=== PATIENT | female | born 1970 | race Caucasian/White ===

== ENCOUNTER 2018-09-29 05:08 | Inpatient (IN) ==
[2018-09-29] MEDS ORDERED: IOPAMIDOL 100 ML BOTTLE IV ONE (05:09)
[2018-09-29] MEDS ORDERED: 0.9 % SODIUM CHLORIDE 2,000 ML IV ONE (05:51)
[2018-09-29] MEDS ORDERED: ONDANSETRON 4 MG/2 ML VIAL IV ONE (05:51)
[2018-09-29] MEDS ORDERED: KETOROLAC 30 MG/ML VIAL IV ONE (05:51)
[2018-09-29] MEDS: HYDROmorphone 2 MG/ML VIAL IV PRN ×3 (06:14→09:05)
[2018-09-29 06:36] LABS: Basophils # (Auto) 0 K/mcL (0.0-0.3); Basophils % (Auto) 0.4 % (0.0-2.0); Eosinophils # (Auto) 0.1 K/mcL (0.0-0.7); Eosinophils % (Auto) 0.8 % (0.0-7.0); Lymphocytes # (Auto) 1.4 K/mcL (1.5-4.8); Lymphocytes % (Auto) 16.2 % (15.5-49.0); Mean Cell Volume 94.1 fL (80.0-100.0); Mean Corpuscular HGB Conc 32.7 g/dL (31.0-36.0); Mean Corpuscular Hemoglobin 30.7 pg (26.0-34.0); Monocytes # (Auto) 0.6 K/mcL (0.1-0.9); Monocytes % (Auto) 6.6 % (1.0-12.0); Platelet Count 451 K/mcL (140-440); RBC 5.14 M/mcL (4.00-5.20); Red Cell Distribution Width 12.9 % (11.5-14.5)
[2018-09-29 06:56] LABS: ALT/SGPT 16 U/l (0-40); Albumin 4.5 gm/dL (3.2-5.2); Alkaline Phosphatase 88 U/L (39-117); Blood Urea Nitrogen 17 mg/dl (6-20); Lipase 16 U/L (7-60)
--- NOTE | 2018-09-29 07:11 | Emergency Department Note ---
General Adult HPI - General Chief complaint: Extremity Injury, Lower Stated complaint: right hip pain, abdominal pain Time Seen by Provider: 09/29/18 05:30 Source: patient Mode of arrival: wheelchair Limitations: no limitations - History of Present Illness HPI Narrative: 48-year-old female with a several month history of right hip right knee pain that hurts to walk on. She states that they sometimes give out on her and is not clear whether this from her back or from the hip or knee joint. Additionally she is having belly pain which she thinks is diverticulitis as it is across her lower belly and she has had diverticulitis before. She denies any fever. Abdominal pain is worst on the left side. Denies vomiting but she is having some nausea. She is taking ibuprofen only for pain I reviewed her note from last month with Dr. Manning up where he did x-rays on the right side-these were normal - Related Data Home Medications Medication Instructions Recorded Confirmed Citalopram [Celexa] 10 mg PO DAILY 01/14/16 08/29/18 clonazepam 1 mg tablet 1 mg PO TID tab 01/16/16 08/29/18 trazodone 50 mg tablet 75 mg PO QHS PRN tab 01/20/16 06/29/18 Dicyclomine 20 mg PO DAILY 06/29/18 06/29/18 Omeprazole [Prilosec] 40 mg PO ACB 06/29/18 08/29/18 carBAMazepine [Tegretol Xr] 200 mg PO BID 06/29/18 08/29/18 Previous Rx's Medication Instructions Recorded tramadol 50 mg tablet 50 mg PO Q6H PRN #20 tab 05/25/18 HYDROcodone/APAP 10/325MG [Fithian 1 tab PO TID #9 tab 06/26/18 10-325Mg] Sulfamethoxazole/Trimethoprim 1 each PO Q12H #20 tab 06/26/18 [Bactrim Ds Tablet] Sulfamethoxazole/Trimethoprim 1 tab PO BID #14 tab 08/01/18 [Bactrim Ds] Allergies Allergy/AdvReac Type Severity Reaction Status Date / Time Penicillins Allergy Unknown Unknown Verified 09/29/18 05:11 diphenhydramine AdvReac Mild Anxiety Verified 09/29/18 05:11 [From Benadryl] ketorolac AdvReac Mild Vomiting Verified 09/29/18 05:11 metoclopramide [From Reglan] AdvReac Mild Numbness Verified 09/29/18 05:11 NSAIDS (Non-Steroidal AdvReac Mild N/V Verified 09/29/18 05:11 Anti-Inflamma [NSAIDS] prochlorperazine AdvReac Mild Hallucinati Verified 09/29/18 05:11 ons promethazine [PROMETHAZINE] AdvReac Mild Anxiety Verified 09/29/18 05:11 Review of Systems All systems ED: reviewed and negative except as stated. Past Medical History - Past Medical History Attestation: Yes: The following information was validated with the patient. Medical history: Reports: cancer (breast), seizures, other (Kidney stones, chronic abdominal pain. Diverticulitis). Denies: DM, hyperlipidemia, hypertension, thyroid disease Psychiatric history: Reports: anxiety, bipolar, depression, PTSD Surgical history ED: Reports: hysterectomy (with single oophorectomy.), tonsillectomy - Social History smoking status: Current every day smoker Alcohol use: Reports: None Drug use: Reports: methamphetamine (A few days ago (recorded 08-29-18)). Denies : marijuana Physical Exam Thin even cachectic female some distress secondary to pain. Lying on her left side. Normocephalic atraumatic. Conjunctive are clear sclerae nonicteric. No nasal discharge or congestion. She covers her face most the time when talking. However conjunctive are clear sclerae white and anicteric. No nasal discharge or congestion. Oropharynx pink and moist. Nose is without discharge or congestion. Heart is regular rhythm but slightly tachycardic. Lungs are basically clear to auscultation bilaterally without wheezes rales rhonchi or respiratory distress. Abdomen is somewhat firm but not rigid tender throughout but especially lower quadrants. She also has some tenderness over the right buttock area, but I do not see deformity. I tried to examine her back as well straight leg raise was negative. Movement of the right knee or hip elicits tenderness and she does not want to move it at all. However I do not see or feel any swelling or heat. No pedal edema. +2 radial pulse. she is alert and able to answer questions appropriately Limitations: no limitations Course Vital Signs Temperature 97.5 F 09/29/18 05:09 Pulse Rate 102 H 09/29/18 05:09 Respiratory Rate 18 11/22/18 05:09 Blood Pressure 148/107 09/29/18 05:09 Pulse Oximetry (%) 100 09/29/18 05:09 Temperature 97.5 F 09/29/18 05:09 Pulse Rate 83 09/29/18 08:13 Respiratory Rate 18 09/29/18 05:09 Blood Pressure 116/81 09/29/18 08:01 Pulse Oximetry (%) 99 09/29/18 08:13 Medical Decision Making - Lab Data Lab results reviewed: Yes I reviewed the patient's lab results. Result diagrams: 09/29/18 06:08 09/29/18 06:08 Lab Results 09/29/18 09/29/18 09/29/18 Range/Units 06:08 06:08 06:08 WBC 8.8 (4.5-11.0) K/mcL RBC 5.14 (4.00-5.20) M/mcL Hgb 15.8 H (12.0-15.0) g/dL Hct 48.4 H (36.0-48.0) % MCV 94.1 (80.0-100.0) fL MCH 30.7 (26.0-34.0) pg MCHC 32.7 (31.0-36.0) g/dL RDW 12.9 (11.5-14.5) % Plt Count 451 H (140-440) K/mcL MPV 7.5 (7.4-10.4) fL Gran % 76.0 (38.0-78.0) % Lymph % (Auto) 16.2 (15.5-49.0) % Woodruff % (Auto) 6.6 (1.0-12.0) % Eos % (Auto) 0.8 (0.0-7.0) % Baso % (Auto) 0.4 (0.0-2.0) % Gran # 6.7 (1.8-8.0) K/mcL Lymph # (Auto) 1.4 L (1.5-4.8) K/mcL Woodruff # (Auto) 0.6 (0.1-0.9) K/mcL Eos # (Auto) 0.1 (0.0-0.7) K/mcL Baso # (Auto) 0 (0.0-0.3) K/mcL VBG Lactic Acid 0.9 (0.5-2.0) mmol/L Sodium 136 (133-145) mmol/L Potassium 4.5 (3.3-5.1) mmol/L Chloride 98 (96-108) mmol/L Carbon Dioxide 25 (22-30) mmol/L Anion Gap 13.0 (8-16) BUN 17 (6-20) mg/dl Creatinine 1.0 (0.6-1.1) mg/dl GFR Calculation 66 Glucose 99 (70-105) mg/dL Calcium 10.3 (8.6-10.4) mg/dl Total Bilirubin 0.8 (0.0-1.0) mg/dL AST 16 (0-37) U/l ALT 16 (0-40) U/l Alkaline Phosphatase 88 (39-117) U/L Total Protein 8.9 H (5.9-8.4) gm/dL Albumin 4.5 (3.2-5.2) gm/dL Globulin 4.4 H (2.2-3.7) gm/dL Albumin/Globulin Ratio 1.0 (1.0-2.3) Lipase 16 (7-60) U/L - Radiology Data Radiology results reviewed: Yes I reviewed the patient's radiology results. CT scan of the abdomen pelvis shows small bowel obstruction with transition point likely from adhesions Disposition Pt seen by [employer] only: No Clinical Impression: SBO (small bowel obstruction) Summary: After initial evaluation workup is ordered with CT scan and laboratory. Treatment ordered with pain medicine antiemetics and fluids CT scan shows small bowel obstruction Discussed case with Dr. Beto Hansen who agreed to accept the patient for further treatment hospital. I will write transition orders Disposition: Xfer As Inpt ([facility]) Condition: Fair Referrals: Lucio Trujillo MD [Primary Care Provider] -
--- NOTE | 2018-09-29 08:19 | Cat Scan Report ---
CLINICAL INFORMATION: History lower abdominal pain and nausea, status post prior hysterectomy COMPARISON: None. TECHNIQUE: Following oral contrast and the injection of intravenous contrast the patient was scanned during the portal venous phase from the diaphragm through the symphysis pubis. Sagittal and coronal reformats were created.. The radiation exposure was limited using dose reduction technology. FINDINGS: Lung bases are clear. The liver and spleen are normal in size and homogeneous. The gallbladder and bile ducts are normal. The pancreas is normal in size and homogeneous. The adrenals and kidneys are normal. Incidentally noted is a 1 cm cyst located laterally in the upper third of the right kidney. There is no evidence of pyelonephritis, calculus or hydronephrosis. Most of the oral contrast remains within the stomach with a small amount passing into the duodenum. From the proximal jejunum to the distal ileum the small intestine is abnormally dilated and contains multiple air-fluid levels. It measures up to 4.5 cm. The distal ileum is decompressed. There is an ill-defined transition in the right lower pelvis. No mass or abscess or free fluid are present. There are surgical clips in the pelvis following prior hysterectomy. The patient is reported to have had one of the two ovaries removed. The remaining ovary cannot be clearly identified separate from adjacent unopacified bowel. The appendix is noninflamed. No free air is present. Moderate disc space narrowing is present at L5-S1. The bones including the hips are otherwise normal. IMPRESSION: Distal small bowel obstruction. This is probably due to an adhesion in the right lower pelvis. Dr. Jameson was called with results Interpreted and Authenticated by: Chava Alexis 09/29/18
[2018-09-29] MEDS ORDERED: LEVOFLOXACIN 500 MG/100 ML BAG IV ONE (08:27)
[2018-09-29] MEDS ORDERED: ACETAMINOPHEN 325 MG TABLET PO PRN (08:29)
[2018-09-29] MEDS ORDERED: ONDANSETRON 4 MG/2 ML VIAL IV PRN (08:29)
[2018-09-29] MEDS ORDERED: NALOXONE HCL 0.4 MG/ML VIAL IV PRN (08:29)
[2018-09-29 09:13] LABS: Appearance,Urine CLOUDY; Bacteria,Urine FEW /hpf (0); Bilirubin,Urine NEG (NEG); Calcium Oxalate Crystals,Urine FEW /hpf (0); Color,Urine YELLOW; Glucose,Urine (UA) NEGATIVE (NEG); Leukocyte Esterase,Urine 75 /uL (NEG); Mucus,Urine FEW /hpf (0); Protein,Urine NEG (NEG); Specific Gravity,Urine 1.015 (1.003-1.030); Urine Blood 0.03 mg/dL (<0.03); Urine RBC 12 /hpf (0-1); Urine Squamous Epithelial Cell 44 /hpf (0-4); Urine WBC 15 /hpf (0-4); Urobilinogen,Urine NEG (NEG)
--- NOTE | 2018-09-29 09:27 | XRay Report ---
HISTORY: Small bowel obstruction and nasogastric tube insertion FINDINGS: Nasogastric tube with the tip in the cardia the stomach. The sidehole of the catheter remains in the distal esophagus. This could be advanced several inches. Stomach is decompressed. There are several loops of dilated small intestine in the pelvis. There is stool and gas within nondistended colon. The renal collecting systems are opacified bilaterally due to the preceding CT scan. There is no hydronephrosis. IMPRESSION: Nasogastric tube in the cardia of the stomach. Distal small bowel obstruction Interpreted and Authenticated by: Chava Aelxis 09/29/18
[2018-09-29] MEDS: 0.9 % SODIUM CHLORIDE 1,000 ML IV SCH ×2 (09:40→18:12)
--- NOTE | 2018-09-29 12:47 | General Surg History&Physical ---
History of Present Illness Patient information: Note initiated : 09/29/18 at 12:43 pm Service Date, if different from initiated Date: [] Patient: Annette Cervantes a 48 y/o F admitted on 09/29/18 for Rt Hip Pain, Abd Pain. Chief Complaint: [] HPI: Ms. Cervantes is a 48 year old F with presumptive small bowel obstruction. The patient states that she has a 10 day history of mid abdominal pain that radiates to both lower quadrants. The pain is intense and very sharp. She has had nausea with vomiting for 4 days. Her last bowel movement was 3 days ago. She has been passing flatus as recently as yesterday. She has a 10 pound weight loss in the past 2 weeks and a 25 pound weight loss total since June 2018. The patient has a long history of chronic intestinal difficulties. She' s been admitted multiple times at this hospital in [facility] with small bowel obstruction. She's never needed operation. She has gastroparesis and intestinal pseudoobstruction. She's been tried on Reglan and erythromycin without improvement. She has extrapyramidal side effects with Reglan. She was noted to have gastroparesis with bezoar formation in June of this year. During her last admission on 06/30/18 she had a small bowel follow-through which was normal except for increased transit time. She had severe constipation and started having evacuation after the small bowel follow through followed by laxatives. She denies narcotic use but she is still using methamphetamine. Review of Systems - Constitutional anorexia, fatigue, headache(s), malaise, weakness, weight loss (over 25 pound weight loss in the past 6 months) - EENT Nose, mouth and throat: dizziness, headache(s) - Breasts other ( history of fibrocystic disease) - Cardiovascular palpatations, rapid heart rate, no chest pain at rest, no dyspnea on exertion, no pedal edema, no syncope - Respiratory cough, dyspnea on exertion, other (shortness of breath), no chest congestion, no pain with cough - Gastrointestinal abdominal pain, bloating, change in bowel habits, constipation, cramping, dyspepsia, dysphagia, early satiety, heartburn, nausea, vomiting, no hematemesis - Genitourinary Genitourinary: nocturia, post void dribbling, urinary frequency, urinary hesitancy, urinary urgency - Musculoskeletal arthralgias, back pain, joint swelling, muscle cramps, muscle weakness, myalgias , numbness, stiffness, tingling - Integumentary no change in hair, no changing lesions, no new lesions, no non-healing lesions, no pruritus, no rash - Neurological abnormal gait, confusion, convulsions, headache(s), memory loss, numbness, tingling, weakness - Psychiatric anxiety, depression, memory loss, mood swings, panic attacks - Endocrine change in body appearance, fatigue, heat intolerance, palpitations, no excessive sweating - Hematologic/Lymphatic no easy bleeding, no easy bruising, no lymphadenopathy - Allergic/Immunologic no tongue swelling, no throat swelling, no uticaria, no wheezing, no lip swelling Past History Past medical history: Nondiabetic gastroparesis cHRONIC INTESTINAL PSEUDOOBSTRUCTION Bipolar disorder History of seizure disorder Past surgical history: Right breast lumpectomy Abdominal hysterectomy with salpingo-oophorectomy Past family history: pARKINSON DISEASE Hypertension Lung cancer Past social history: Single lives in a detached trailer without electricity and water Smoker for many years History of polysubstance abuse Denies alcohol use Medications and Allergies Home Medications Medication Instructions Recorded Confirmed Type Citalopram [Celexa] 10 mg PO DAILY 01/14/16 09/29/18 History clonazepam 1 mg tablet 1 mg PO TID tab 01/16/16 09/29/18 History trazodone 50 mg tablet 75 mg PO QHS PRN tab 01/20/16 09/29/18 History Dicyclomine 20 mg PO TID 06/29/18 09/29/18 History Omeprazole [Prilosec] 40 mg PO BID 06/29/18 09/29/18 History carBAMazepine [Tegretol Xr] 200 mg PO BID 06/29/18 09/29/18 History Allergies Allergy/AdvReac Type Severity Reaction Status Date / Time Penicillins Allergy Unknown Unknown Verified 09/29/18 05:11 diphenhydramine AdvReac Mild Anxiety Verified 09/29/18 05:11 [From Benadryl] ketorolac AdvReac Mild Vomiting Verified 09/29/18 05:11 metoclopramide [From Reglan] AdvReac Mild Numbness Verified 09/29/18 05:11 NSAIDS (Non-Steroidal AdvReac Mild N/V Verified 09/29/18 05:11 Anti-Inflamma [NSAIDS] prochlorperazine AdvReac Mild Hallucinati Verified 09/29/18 05:11 ons promethazine [PROMETHAZINE] AdvReac Mild Anxiety Verified 09/29/18 05:11 Exam Temp Pulse Resp BP Pulse Ox 97.3 F 75 18 132/75 99 09/29/18 12:00 09/29/18 09:24 09/29/18 12:00 09/29/18 12:00 09/29/18 12:00 - General physical appearance well developed, well nourished, no distress, moderate pain, cachectic, chronically ill, other (evidence of extreme weight loss) - Eyes PERRL, normal ocular movement. negative: icteric - ENT normal pinna, normal nares, normal mucosa, no hearing loss, no congestion, poor custodial - Head Head exam IM: Present: atraumatic, normal inspection, normocephalic - Neck no masses, no bruits, trachea midline, no lymphadenopathy, no venous distension - Cardiovascular Cardiovascular exam IM: Present: normal rate and rhythm, RRR, +S1, +S2. Absent : irregular rhythm, JVD, tachycardia - Respiratory normal expansion, normal respiratory effort, clear to auscultation - Abdomen Abdomen: Present: soft, tender ( distended lower abdomen with diffuse tenderness; active bowel sounds;;;;;;;;; mild guarding in the mid abdomen), bowel sounds, distended Hernia: Present: none - Genitourinary Present: normal external genitalia - Integumentary Present: no rash, no growths, no abnormal pigmentation - Neurologic Present: normal coordination, normal sensation, memory loss - Musculoskeletal Present: normal gait, normal posture - Psychiatric Present: oriented to time, oriented to person, oriented to place, speech is normal Assessment and Plan (1) Partial obstruction of small intestine Nasogastric decompression Milk of magnesia every 4 hours 4 doses Follow-up abdominal x-ray in the morning Status: Acute (2) Nondiabetic gastroparesis Status: Chronic (3) Constipation due to neurogenic bowel Status: Acute (4) Gastroparesis Nasogastric decompression Status: Chronic (5) GERD (gastroesophageal reflux disease) Pantoprazole IV every 12 hours Status: Chronic (6) Polysubstance abuse Urine drug screen Status: Chronic Comment: History of polysubstance abuse (7) Bipolar disorder Continue home medications when able to take by mouth Status: Chronic
[2018-09-29 13:10] LABS: Amphetamine Screen,Urine SUSPECT POSITIVE (NONDETECTED); Benzodiazepines Screen,Urine SUSPECT POSITIVE (NONDETECTED); Cocaine Screen,Urine NONE DETECTED (NONDETECTED); Opiate Screen,Urine NONE DETECTED (NONDETECTED); Oxycodone, Urine Screen NONE DETECTED (NONDETECTED)
[2018-09-29] MEDS: MAGNESIUM HYDROXIDE 30 ML ORAL.SUSP PO SCH ×3 (13:30→20:59)
[2018-09-30] MEDS: MAGNESIUM HYDROXIDE 30 ML ORAL.SUSP PO SCH (01:05)
[2018-09-30] MEDS: 0.9 % SODIUM CHLORIDE 1,000 ML IV SCH ×5 (02:13→23:51)
[2018-09-30 06:31] LABS: Basophils # (Auto) 0 K/mcL (0.0-0.3); Basophils % (Auto) 0.6 % (0.0-2.0); Eosinophils # (Auto) 0.1 K/mcL (0.0-0.7); Eosinophils % (Auto) 1.9 % (0.0-7.0); Granulocytes % (Auto) 63.4 % (38.0-78.0); Lymphocytes # (Auto) 1.1 K/mcL (1.5-4.8); Lymphocytes % (Auto) 23.8 % (15.5-49.0); Mean Cell Volume 93.8 fL (80.0-100.0); Mean Corpuscular HGB Conc 33.8 g/dL (31.0-36.0); Mean Corpuscular Hemoglobin 31.8 pg (26.0-34.0); Monocytes # (Auto) 0.5 K/mcL (0.1-0.9); Monocytes % (Auto) 10.3 % (1.0-12.0); Platelet Count 383 K/mcL (140-440); Red Cell Distribution Width 13.2 % (11.5-14.5)
[2018-09-30 06:46] LABS: ALT/SGPT 11 U/l (0-40); Albumin 3.3 gm/dL (3.2-5.2); Alkaline Phosphatase 75 U/L (39-117); Bilirubin,Direct 0.2 mg/dL (0.0-0.3); Blood Urea Nitrogen 15 mg/dl (6-20); Gamma Glutamyl Transpeptidase 7 U/L (5-36); Uric Acid 3.4 mg/dL (2.5-8.0)
[2018-09-30] MEDS ORDERED: LORazepam 2 MG/ML VIAL IV ONE (08:24)
--- NOTE | 2018-09-30 08:34 | XRay Report ---
HISTORY: Small bowel obstruction FINDINGS: There are several loops of abnormally dilated small intestine containing air-fluid levels. The measure up to 5.8 cm diameter. There is residual air and stool in nondistended colon. The stomach is decompressed. No free intra-abdominal air is present. Nasogastric tube remains positioned with the tip in the cardia of the stomach. The small intestine has become more distended since yesterday's exam. IMPRESSION: Increasing distention of the small bowel due to a distal small bowel obstruction Interpreted and Authenticated by: Chava Alexis 09/30/18
--- NOTE | 2018-09-30 08:56 | XRay Report ---
HISTORY: Preop FINDINGS: The lungs are hyperinflated due to emphysema. On the PA view and 8mm round nodular density is seen overlying the anterior right fifth rib. This is not confirmed on the lateral view. No other mass or infiltrate are seen in either lung. The heart is relatively small. The mediastinum and hilar normal. There is nasogastric tube passing through the esophagus into the fundus of the stomach. An old healed fractures present posterior laterally in the left 10th rib. IMPRESSION: Emphysema Pulmonary nodule versus prominent nipple shadow in the right lower thorax. Shallow left and right oblique views of the chest in a PA projection is recommended after placement of nipple markers Interpreted and Authenticated by: Chava Alexis 09/30/18
[2018-09-30] MEDS ORDERED: LEVOFLOXACIN 750 MG/150 ML BAG IV ONE (12:04)
--- NOTE | 2018-09-30 12:18 | General Surgery Progress Note ---
Subjective Patient reports: still having pain, no flatus, no bowel movement, afebrile Narrative: Note initiated : 09/30/18 at 12:16 pm Service Date, if different from initiated Date: [] Patient: Annette Cervantes a 48 y/o F admitted on 09/29/18 for Rt Hip Pain, Abd Pain. Chief Complaint: [patient has had pain all night . she has had worsening pain and nausea. abdominal x-rays show more prominent dilation of jejunum and proximal ileum. ] Objective Temp Pulse Resp BP Pulse Ox 97.6 F 90 16 97/62 97 09/30/18 06:44 09/30/18 03:53 09/30/18 08:57 09/30/18 06:44 09/30/18 06:44 - Additional Data Intake & Output - Last 24 hours: Intake & Output 09/28/18 09/29/18 09/30/18 10/01/18 05:59 05:59 05:59 05:59 Intake Total 4440 / 4440 1000 / 1000 Output Total 1960 / 1960 400 / 400 Balance 2480 / 2480 600 / 600 Weight 110 lb 110 lb 8 oz 110 lb 8 oz - General physical appearance moderate distress, moderate pain, chronically ill - Eyes PERRL, normal ocular movement - ENT normal pinna, normal nares, normal mucosa, no hearing loss, no congestion - Neck no masses, no bruits, trachea midline, no lymphadenopathy, no venous distension - Respiratory normal expansion, normal respiratory effort, clear to auscultation - Cardiovascular Cardiovascular exam: Present: normal rate and rhythm, RRR, +S1, +S2. Absent: JVD, tachycardia - Abdomen tender (tender mid abdomen ;active bowel sounds and diffuse tenderness noted) - Integumentary no rash, no growths, no abnormal pigmentation - Neurologic normal coordination, normal sensation - Musculoskeletal normal gait, normal posture - Psychiatric oriented to time, oriented to person, oriented to place, speech is normal, memory intact - Labs 09/30/18 04:46 09/30/18 04:46 Diabetes panel 09/30/18 Range/Units 04:46 Sodium 137 (133-145) mmol/L Potassium 4.0 (3.3-5.1) mmol/L Chloride 103 (96-108) mmol/L Carbon Dioxide 22 (22-30) mmol/L BUN 15 (6-20) mg/dl Creatinine 0.7 (0.6-1.1) mg/dl Glucose 61 L (70-105) mg/dL Calcium 8.3 L (8.6-10.4) mg/dl AST 13 (0-37) U/l ALT 11 (0-40) U/l Alkaline Phosphatase 75 (39-117) U/L Total Protein 6.5 (5.9-8.4) gm/dL Albumin 3.3 (3.2-5.2) gm/dL Triglycerides 106 (<150) mg/dl Calcium panel 09/30/18 Range/Units 04:46 Calcium 8.3 L (8.6-10.4) mg/dl Phosphorus 2.5 L (2.7-4.5) mg/dL Albumin 3.3 (3.2-5.2) gm/dL Pituitary panel 09/30/18 Range/Units 04:46 Sodium 137 (133-145) mmol/L Potassium 4.0 (3.3-5.1) mmol/L Chloride 103 (96-108) mmol/L Carbon Dioxide 22 (22-30) mmol/L BUN 15 (6-20) mg/dl Creatinine 0.7 (0.6-1.1) mg/dl Glucose 61 L (70-105) mg/dL Calcium 8.3 L (8.6-10.4) mg/dl Adrenal panel 09/30/18 Range/Units 04:46 Sodium 137 (133-145) mmol/L Potassium 4.0 (3.3-5.1) mmol/L Chloride 103 (96-108) mmol/L Carbon Dioxide 22 (22-30) mmol/L BUN 15 (6-20) mg/dl Creatinine 0.7 (0.6-1.1) mg/dl Glucose 61 L (70-105) mg/dL Calcium 8.3 L (8.6-10.4) mg/dl Total Bilirubin 1.3 H (0.0-1.0) mg/dL AST 13 (0-37) U/l ALT 11 (0-40) U/l Alkaline Phosphatase 75 (39-117) U/L Total Protein 6.5 (5.9-8.4) gm/dL Albumin 3.3 (3.2-5.2) gm/dL Assessment and Plan (1) Partial obstruction of small intestine Status: Acute Assessment and plan: patient is much worse and is counseled for exploratory laparotomy later this morning Current Visit: Yes (2) Nondiabetic gastroparesis Status: Chronic Current Visit: No (3) Constipation due to neurogenic bowel Status: Acute Current Visit: No (4) Gastroparesis Status: Chronic Current Visit: No (5) GERD (gastroesophageal reflux disease) Status: Chronic Current Visit: No (6) Polysubstance abuse Problem details: History of polysubstance abuse Status: Chronic Current Visit: No (7) Bipolar disorder Status: Chronic Current Visit: No - Time Spent With Patient Total time spent is greater than 50% in coordination of care (as documented) at patient's floor/unit and/or counseling patient:
[2018-09-30] MEDS ORDERED: PROPOFOL 200 MG/20 ML VIAL IV ONE (12:25)
[2018-09-30] MEDS ORDERED: ONDANSETRON 4 MG/2 ML VIAL IV ONE (12:25)
[2018-09-30] MEDS ORDERED: NEOSTIGMINE 1 MG/ML VIAL IV ONE (12:25)
[2018-09-30] MEDS ORDERED: KETAMINE 100 MG/ML ML IV ONE (12:25)
[2018-09-30] MEDS ORDERED: MIDAZOLAM 2 MG/2 ML VIAL IV ONE (12:25)
[2018-09-30] MEDS ORDERED: fentaNYL 100 MCG/2 ML VIAL IV ONE (12:25)
[2018-09-30] MEDS ORDERED: GLYCOPYRROLATE 0.2 MG/ML VIAL IV ONE (12:25)
[2018-09-30] MEDS ORDERED: ROCURONIUM 10 MG/ML ML IV ONE (12:25)
[2018-09-30] MEDS ORDERED: PHENYLEPHRINE 10 MG/ML VIAL IV ONE (12:25)
[2018-09-30] MEDS ORDERED: LIDOCAINE HCL/PF 100 MG/5 ML SYRINGE IV ONE (12:25)
[2018-09-30] MEDS ORDERED: IPRATROPIUM/ALBUTEROL 3 ML AMPUL.NEB NEB PRN (13:03)
[2018-09-30] MEDS ORDERED: MEPERIDINE 25 MG/ML SYRINGE IV PRN (13:03)
[2018-09-30] MEDS ORDERED: HYDROmorphone 2 MG/ML VIAL IV PRN (13:03)
--- NOTE | 2018-09-30 13:10 | Brief Operative Note ---
Date of procedure: 09/30/18 Pre-op diagnosis: small bowel obstruction Post-op diagnosis: other (intestinal pseudo-obstruction with thick constipated stool blocking distal ileum and right colon) Procedure: EXPLORATORY LAPAROTOMY Grafts/Implants: No Anesthesia: GETA Findings: MAJOR DILATION OF PROXIMAL BOWEL WITH TRANSITION POINT IN PROXIMAL ILEUM WITH THICK STOOL FILLING OF TERMINAL ILEUM AND RIGHT COLON;GAS AND LIQUID ABLE TO BE PUSHED INTO RIGHT COLON WITHOUT AN OBSTRUCTING POINT Complications: none Surgeon: Tom Hansen Estimated blood loss (cc): 10 Specimens Removed/Pathology: none sent
[2018-09-30] MEDS ORDERED: LACTATED RINGERS 1,000 ML IV SCH (13:15)
[2018-09-30] MEDS ORDERED: METHYLNALTREXONE BROMIDE 12 MG/0.6 ML VIAL SQ SCH (13:30)
[2018-09-30] MEDS ORDERED: ACETAMINOPHEN 750 MG/75 ML BOTTLE IV ONE (13:54)
[2018-09-30] MEDS ORDERED: ACETAMINOPHEN 325 MG TABLET PO PRN (15:07)
[2018-09-30] MEDS: LORazepam 2 MG/ML VIAL IV PRN (19:12)
[2018-09-30] MEDS: levETIRAcetam 500 MG in 0.9 % SODIUM CHLORIDE 100 ML IV SCH (21:05)
[2018-10-01 06:38] LABS: Basophils # (Auto) 0 K/mcL (0.0-0.3); Basophils % (Auto) 0.1 % (0.0-2.0); Eosinophils # (Auto) 0.1 K/mcL (0.0-0.7); Eosinophils % (Auto) 1.4 % (0.0-7.0); Granulocytes % (Auto) 74.9 % (38.0-78.0); Lymphocytes # (Auto) 0.5 K/mcL (1.5-4.8); Lymphocytes % (Auto) 11.8 % (15.5-49.0); Mean Cell Volume 93.1 fL (80.0-100.0); Mean Corpuscular HGB Conc 34.3 g/dL (31.0-36.0); Mean Corpuscular Hemoglobin 31.9 pg (26.0-34.0); Monocytes # (Auto) 0.5 K/mcL (0.1-0.9); Monocytes % (Auto) 11.8 % (1.0-12.0); Platelet Count 363 K/mcL (140-440); RBC 3.91 M/mcL (4.00-5.20); Red Cell Distribution Width 12.9 % (11.5-14.5)
[2018-10-01 07:04] LABS: ALT/SGPT 8 U/l (0-40); Albumin 2.9 gm/dL (3.2-5.2); Albumin/Globulin Ratio 0.9 (1.0-2.3); Alkaline Phosphatase 65 U/L (39-117); Bilirubin,Direct < 0.2 mg/dL (0.0-0.3); Blood Urea Nitrogen 11 mg/dl (6-20); Gamma Glutamyl Transpeptidase 5 U/L (5-36); Uric Acid 4.5 mg/dL (2.5-8.0)
[2018-10-01] MEDS: 0.9 % SODIUM CHLORIDE 1,000 ML IV SCH ×2 (07:31→13:40)
[2018-10-01] MEDS: ONDANSETRON 4 MG/2 ML VIAL IV PRN ×2 (07:32→21:14)
[2018-10-01] MEDS ORDERED: POTASSIUM PHOSPHATE 40 MEQ in DEXTROSE 5% IN WATER 500 ML IV ONE (08:00)
[2018-10-01] MEDS: levETIRAcetam 500 MG in 0.9 % SODIUM CHLORIDE 100 ML IV SCH ×2 (09:45→21:12)
[2018-10-01] MEDS: METHYLNALTREXONE BROMIDE 12 MG/0.6 ML VIAL SQ SCH (09:46)
--- NOTE | 2018-10-01 10:55 | General Surgery Progress Note ---
Subjective Patient reports: feels better, still having pain, no flatus, no bowel movement, afebrile Narrative: Note initiated : 10/01/18 at 10:52 am Service Date, if different from initiated Date: [] Patient: Annette Cervantes a 48 y/o F admitted on 09/29/18 for Rt Hip Pain, Abd Pain. Chief Complaint: [patient is stable. She is somewhat reluctant to participate in her care. Her pain is about the same.. She denies nausea and has minimal NG output so the nasogastric tube was removed. She will be started on clear liquids with MiraLAX to 2 glasses per day. Abdominal x-ray shows gas in the colon and decrease in size of the proximal small bowel. White blood count 4.2, hemoglobin 12.5, hematocrit 36.3. BUN 11, creatinine 0.7] Objective Temp Pulse Resp BP Pulse Ox 97.8 F 96 H 16 114/69 97 10/01/18 07:35 10/01/18 04:00 10/01/18 07:35 10/01/18 07:35 10/01/18 07:35 - Additional Data Intake & Output - Last 24 hours: Intake & Output 09/29/18 09/30/18 10/01/18 10/02/18 05:59 05:59 05:59 05:59 Intake Total 4440 / 4440 1180 / 1180 958 / 958 Output Total 1959 / 1959 2675 / 2675 1000 / 1000 Balance 2480 / 2480 -1495 / -1495 -42 / -42 Weight 110 lb 110 lb 8 oz 112 lb 12.8 oz - General physical appearance moderate distress, moderate pain, cachectic, chronically ill - Eyes PERRL, normal ocular movement - ENT normal pinna, normal nares, normal mucosa, no hearing loss, no congestion - Neck no masses, no bruits, trachea midline, no lymphadenopathy, no venous distension - Respiratory normal expansion, normal respiratory effort, clear to auscultation - Cardiovascular Cardiovascular exam: Present: normal rate and rhythm, RRR, +S1, +S2. Absent: JVD, tachycardia - Abdomen tender (tender incisional area; active bowel sounds;;;;;;;;;;;;;;;;;;; incision looks good) - Integumentary no rash, no growths, no abnormal pigmentation - Neurologic normal coordination, normal sensation - Musculoskeletal normal gait, normal posture - Psychiatric oriented to time, oriented to person, oriented to place, speech is normal, memory intact - Labs 10/01/18 04:53 10/01/18 04:53 Diabetes panel 10/01/18 Range/Units 04:53 Sodium 134 (133-145) mmol/L Potassium 4.5 (3.3-5.1) mmol/L Chloride 100 (96-108) mmol/L Carbon Dioxide 17 L (22-30) mmol/L BUN 11 (6-20) mg/dl Creatinine 0.7 (0.6-1.1) mg/dl Glucose 56 L (70-105) mg/dL Calcium 7.9 L (8.6-10.4) mg/dl AST 11 (0-37) U/l ALT 8 (0-40) U/l Alkaline Phosphatase 65 (39-117) U/L Total Protein 6.0 (5.9-8.4) gm/dL Albumin 2.9 L (3.2-5.2) gm/dL Triglycerides 103 (<150) mg/dl Calcium panel 10/01/18 Range/Units 04:53 Calcium 7.9 L (8.6-10.4) mg/dl Phosphorus 2.5 L (2.7-4.5) mg/dL Albumin 2.9 L (3.2-5.2) gm/dL Pituitary panel 10/01/18 Range/Units 04:53 Sodium 134 (133-145) mmol/L Potassium 4.5 (3.3-5.1) mmol/L Chloride 100 (96-108) mmol/L Carbon Dioxide 17 L (22-30) mmol/L BUN 11 (6-20) mg/dl Creatinine 0.7 (0.6-1.1) mg/dl Glucose 56 L (70-105) mg/dL Calcium 7.9 L (8.6-10.4) mg/dl Adrenal panel 10/01/18 Range/Units 04:53 Sodium 134 (133-145) mmol/L Potassium 4.5 (3.3-5.1) mmol/L Chloride 100 (96-108) mmol/L Carbon Dioxide 17 L (22-30) mmol/L BUN 11 (6-20) mg/dl Creatinine 0.7 (0.6-1.1) mg/dl Glucose 56 L (70-105) mg/dL Calcium 7.9 L (8.6-10.4) mg/dl Total Bilirubin 0.9 (0.0-1.0) mg/dL AST 11 (0-37) U/l ALT 8 (0-40) U/l Alkaline Phosphatase 65 (39-117) U/L Total Protein 6.0 (5.9-8.4) gm/dL Albumin 2.9 L (3.2-5.2) gm/dL Assessment and Plan (1) Partial obstruction of small intestine Status: Acute Assessment and plan: DC nasogastric tube Clear liquids with MiraLAX 2 glasses per day Follow-up abdominal x-ray tomorrow Current Visit: Yes (2) Nondiabetic gastroparesis Status: Chronic Assessment and plan: Started on erythromycin 500 mg 4 times a day for peristaltic activity Current Visit: No (3) Constipation due to neurogenic bowel Status: Acute Assessment and plan: RELISTOR 12 mg subcutaneous 4 days Current Visit: No (4) Gastroparesis Status: Chronic Current Visit: No (5) GERD (gastroesophageal reflux disease) Status: Chronic Current Visit: No (6) Polysubstance abuse Problem details: History of polysubstance abuse Status: Chronic Current Visit: No (7) Bipolar disorder Status: Chronic Current Visit: No - Time Spent With Patient Total time spent is greater than 50% in coordination of care (as documented) at patient's floor/unit and/or counseling patient:
[2018-10-01] MEDS: ERYTHROMYCIN BASE 250 MG CAPSULE PO SCH ×3 (10:59→23:27)
[2018-10-01] MEDS: LORazepam 2 MG/ML VIAL IV PRN ×2 (11:08→17:09)
--- NOTE | 2018-10-01 13:30 | XRay Report ---
CLINICAL INFORMATION: FOLLOW -UP OF INTESTINAL PSEUDOOBSTRUCTION COMPARISON: 09/30/2018 FINDINGS: Postoperative film now shows multiple midline surgical yuridia in the lower abdomen. Modest free air under the right diaphragm seen as expected immediate postoperative period. The small bowel in the left midabdomen has decreased from preoperative x-ray. Distal small bowel and colon are grossly normal. IMPRESSION: Mild ileus pattern. Interpreted and Authenticated by: Vickey George 10/01/18
[2018-10-01] MEDS: POLYETHYLENE GLYCOL 3350 17 GM PACKET PO SCH (21:12)
[2018-10-02] MEDS: 0.9 % SODIUM CHLORIDE 1,000 ML IV SCH ×3 (00:18→18:45)
[2018-10-02] MEDS: LORazepam 2 MG/ML VIAL IV PRN ×2 (06:11→20:18)
[2018-10-02] MEDS: ERYTHROMYCIN BASE 250 MG CAPSULE PO SCH ×4 (06:12→23:17)
[2018-10-02 06:29] LABS: Basophils # (Auto) 0 K/mcL (0.0-0.3); Basophils % (Auto) 0.1 % (0.0-2.0); Eosinophils # (Auto) 0.2 K/mcL (0.0-0.7); Eosinophils % (Auto) 5.3 % (0.0-7.0); Granulocytes % (Auto) 55.7 % (38.0-78.0); Lymphocytes # (Auto) 0.8 K/mcL (1.5-4.8); Lymphocytes % (Auto) 24.5 % (15.5-49.0); Mean Cell Volume 93.2 fL (80.0-100.0); Mean Corpuscular HGB Conc 34.1 g/dL (31.0-36.0); Mean Corpuscular Hemoglobin 31.7 pg (26.0-34.0); Monocytes # (Auto) 0.5 K/mcL (0.1-0.9); Monocytes % (Auto) 14.4 % (1.0-12.0); Platelet Count 326 K/mcL (140-440); RBC 3.46 M/mcL (4.00-5.20); Red Cell Distribution Width 13.1 % (11.5-14.5)
[2018-10-02 07:00] LABS: ALT/SGPT 8 U/l (0-40); Albumin 2.9 gm/dL (3.2-5.2); Alkaline Phosphatase 54 U/L (39-117); Bilirubin,Direct < 0.2 mg/dL (0.0-0.3); Blood Urea Nitrogen 6 mg/dl (6-20); Gamma Glutamyl Transpeptidase 4 U/L (5-36); Uric Acid 3.7 mg/dL (2.5-8.0)
[2018-10-02] MEDS: levETIRAcetam 500 MG in 0.9 % SODIUM CHLORIDE 100 ML IV SCH ×2 (08:49→20:16)
[2018-10-02] MEDS: METHYLNALTREXONE BROMIDE 12 MG/0.6 ML VIAL SQ SCH (08:56)
[2018-10-02] MEDS: POLYETHYLENE GLYCOL 3350 17 GM PACKET PO SCH ×2 (10:22→20:17)
--- NOTE | 2018-10-02 12:07 | General Surgery Progress Note ---
Subjective Patient reports: still having pain, tolerating liquids well, flatus, no bowel movement, afebrile Narrative: Note initiated : 10/02/18 at 12:04 pm Service Date, if different from initiated Date: [] Patient: Annette Cervantes a 48 y/o F admitted on 09/29/18 for Rt Hip Pain, Abd Pain. Chief Complaint: [patient is feeling better.. She has not had nausea or vomiting with liquid diet. She states that she has not had flatus but she has more gas in her colon and less in her small bowel.. Abdominal exam is benign..] Objective Temp Pulse Resp BP Pulse Ox 97.9 F 83 14 125/75 96 10/02/18 08:00 10/02/18 03:51 10/02/18 08:00 10/02/18 08:00 10/02/18 08:00 - Additional Data Intake & Output - Last 24 hours: Intake & Output 09/30/18 10/01/18 10/02/18 10/03/18 05:59 05:59 05:59 05:59 Intake Total 4440 / 4440 1180 / 1180 3487.0909 / 3487.0909 1000 / 1000 Output Total 1960 / 1960 2675 / 2675 4300 / 4300 Balance 2480 / 2480 -1495 / -1495 -812.9091 / -812.9091 1000 / 1000 Weight 110 lb 8 oz 112 lb 12.8 oz 112 lb - General physical appearance well developed, well nourished, moderate distress, moderate pain, chronically ill - Eyes PERRL - ENT normal pinna, normal nares, normal mucosa, no hearing loss, no congestion - Neck no masses, no bruits, trachea midline, no lymphadenopathy, no venous distension - Respiratory normal expansion, normal respiratory effort, clear to auscultation - Cardiovascular Cardiovascular exam: Present: normal rate and rhythm, RRR, +S1, +S2. Absent: JVD, tachycardia - Abdomen tender (tender abdomen and mid incisional area; active bowel sounds; leSS on a long talk to distention known yesterday) - Integumentary no rash, no growths, no abnormal pigmentation - Neurologic normal coordination, normal sensation - Musculoskeletal normal gait, normal posture - Psychiatric oriented to time ( 111), oriented to person, oriented to place, speech is normal , memory intact - Labs 10/02/18 04:43 10/02/18 04:43 Diabetes panel 10/02/18 Range/Units 04:43 Sodium 136 (133-145) mmol/L Potassium 3.9 (3.3-5.1) mmol/L Chloride 102 (96-108) mmol/L Carbon Dioxide 26 (22-30) mmol/L BUN 6 (6-20) mg/dl Creatinine 0.7 (0.6-1.1) mg/dl Glucose 100 (70-105) mg/dL Calcium 8.2 L (8.6-10.4) mg/dl AST 10 (0-37) U/l ALT 8 (0-40) U/l Alkaline Phosphatase 54 (39-117) U/L Total Protein 5.7 L (5.9-8.4) gm/dL Albumin 2.9 L (3.2-5.2) gm/dL Triglycerides 101 (<150) mg/dl Calcium panel 10/02/18 Range/Units 04:43 Calcium 8.2 L (8.6-10.4) mg/dl Phosphorus 1.9 L (2.7-4.5) mg/dL Albumin 2.9 L (3.2-5.2) gm/dL Pituitary panel 10/02/18 Range/Units 04:43 Sodium 136 (133-145) mmol/L Potassium 3.9 (3.3-5.1) mmol/L Chloride 102 (96-108) mmol/L Carbon Dioxide 26 (22-30) mmol/L BUN 6 (6-20) mg/dl Creatinine 0.7 (0.6-1.1) mg/dl Glucose 100 (70-105) mg/dL Calcium 8.2 L (8.6-10.4) mg/dl Adrenal panel 10/02/18 Range/Units 04:43 Sodium 136 (133-145) mmol/L Potassium 3.9 (3.3-5.1) mmol/L Chloride 102 (96-108) mmol/L Carbon Dioxide 26 (22-30) mmol/L BUN 6 (6-20) mg/dl Creatinine 0.7 (0.6-1.1) mg/dl Glucose 100 (70-105) mg/dL Calcium 8.2 L (8.6-10.4) mg/dl Total Bilirubin 0.9 (0.0-1.0) mg/dL AST 10 (0-37) U/l ALT 8 (0-40) U/l Alkaline Phosphatase 54 (39-117) U/L Total Protein 5.7 L (5.9-8.4) gm/dL Albumin 2.9 L (3.2-5.2) gm/dL Assessment and Plan (1) Partial obstruction of small intestine Status: Acute Assessment and plan: Clear liquids with MiraLAX 2 glasses per day Follow-up abdominal x-ray tomorrow Current Visit: Yes (2) Nondiabetic gastroparesis Status: Chronic Assessment and plan: Started on erythromycin 500 mg 4 times a day for peristaltic activity Current Visit: No (3) Constipation due to neurogenic bowel Status: Acute Assessment and plan: RELISTOR 12 mg subcutaneous 4 days Current Visit: No (4) Gastroparesis Status: Chronic Current Visit: No (5) GERD (gastroesophageal reflux disease) Status: Chronic Current Visit: No (6) Polysubstance abuse Problem details: History of polysubstance abuse Status: Chronic Current Visit: No (7) Bipolar disorder Status: Chronic Current Visit: No - Time Spent With Patient Total time spent is greater than 50% in coordination of care (as documented) at patient's floor/unit and/or counseling patient:
--- NOTE | 2018-10-02 12:33 | XRay Report ---
CLINICAL INFORMATION: FOLLOW -UP OF SMALL BOWEL OBSTRUCTION COMPARISON: 09/30/2018 and 10/01/2018 FINDINGS: Free air in the right subdiaphragmatic region shows modest decrease, as expected, in the postoperative period. Few loops of moderately small bowel air-fluid levels in the central abdomen, but the distal small bowel and colon are unremarkable. No soft tissue mass, pathologic calcification or organomegaly. IMPRESSION: Nonspecific stool gas pattern most compatible with atypical postoperative ileus. No significant change. Minimal free air is decreasing - expected Interpreted and Authenticated by: Vickey George 10/02/18
[2018-10-03] MEDS: 0.9 % SODIUM CHLORIDE 1,000 ML IV SCH ×3 (03:02→18:27)
[2018-10-03] MEDS: ERYTHROMYCIN BASE 250 MG CAPSULE PO SCH ×4 (05:48→23:24)
--- NOTE | 2018-10-03 07:35 | XRay Report ---
CLINICAL INFORMATION: Small bowel obstruction - approximately three days status post surgery. COMPARISON: 10/02/2018 FINDINGS: Multiple of small bowel in the central abdomen remain mildly dilated with air-fluid levels. Less than expected amount of gas in the colon on today's x-ray. Small amounts of subdiaphragmatic free air show an equivocal increase. IMPRESSION: Atypical ileus versus recurrent distal small bowel obstruction. Possible increase in small amount of free subdiaphragmatic air. Consider: Small bowel follow-through to ensure the integrity of the bowel and absence of recurrent obstruction Interpreted and Authenticated by: Vickey George 10/03/18
[2018-10-03 08:22] LABS: Basophils # (Auto) 0 K/mcL (0.0-0.3); Basophils % (Auto) 0.1 % (0.0-2.0); Eosinophils # (Auto) 0.4 K/mcL (0.0-0.7); Granulocytes % (Auto) 65.4 % (38.0-78.0); Lymphocytes # (Auto) 0.8 K/mcL (1.5-4.8); Lymphocytes % (Auto) 17.2 % (15.5-49.0); Mean Corpuscular HGB Conc 33.8 g/dL (31.0-36.0); Mean Corpuscular Hemoglobin 31.7 pg (26.0-34.0); Monocytes # (Auto) 0.4 K/mcL (0.1-0.9); Monocytes % (Auto) 9.3 % (1.0-12.0); Platelet Count 360 K/mcL (140-440); RBC 3.47 M/mcL (4.00-5.20); Red Cell Distribution Width 13.1 % (11.5-14.5)
[2018-10-03 08:46] LABS: ALT/SGPT 8 U/l (0-40); Albumin 2.9 gm/dL (3.2-5.2); Albumin/Globulin Ratio 0.9 (1.0-2.3); Alkaline Phosphatase 57 U/L (39-117); Bilirubin,Direct < 0.2 mg/dL (0.0-0.3); Blood Urea Nitrogen 5 mg/dl (6-20); Gamma Glutamyl Transpeptidase 5 U/L (5-36); Uric Acid 2.7 mg/dL (2.5-8.0)
[2018-10-03] MEDS ORDERED: MAGNESIUM SULFATE 2 GM/50 ML BAG IV ONE (09:06)
[2018-10-03] MEDS: levETIRAcetam 500 MG in 0.9 % SODIUM CHLORIDE 100 ML IV SCH ×2 (09:14→22:05)
[2018-10-03] MEDS: POLYETHYLENE GLYCOL 3350 17 GM PACKET PO SCH ×2 (09:15→22:10)
[2018-10-03] MEDS: ONDANSETRON 4 MG/2 ML VIAL IV PRN ×4 (09:23→23:30)
[2018-10-03] MEDS ORDERED: POTASSIUM PHOSPHATE 40 MEQ in DEXTROSE 5% IN WATER 500 ML IV ONE (10:00)
--- NOTE | 2018-10-03 15:58 | General Surgery Progress Note ---
Subjective Patient reports: feels better, still having pain, tolerating liquids well, afebrile Narrative: Note initiated : 10/03/18 at 3:56 pm Service Date, if different from initiated Date: [] Patient: Annette Cervantes a 48 y/o F admitted on 09/29/18 for Rt Hip Pain, Abd Pain. Chief Complaint: [ It is difficult to assess patient.. She stays in bed and will not participate in her care.. She has been drinking liquids now for 48 hours without nausea vomiting.. She states that she has not passed gas or had flatus though there is gas in her colon.. Her abdominal exam is relatively benign. Will try to encourage her to drink the contrast for small bowel follow -through] Objective Temp Pulse Resp BP Pulse Ox 97.6 F 75 14 102/60 98 10/03/18 11:58 10/03/18 04:00 10/03/18 11:58 10/03/18 11:58 10/03/18 11:58 - Additional Data Intake & Output - Last 24 hours: Intake & Output 10/01/18 10/02/18 10/03/18 10/04/18 05:59 05:59 05:59 05:59 Intake Total 1180 / 1180 3487.0909 / 3487.0909 4325 / 4325 210 / 210 Output Total 2675 / 2675 4300 / 4300 2275 / 2275 Balance -1495 / -1495 -812.9091 / -812.9091 2049 210 / 210 Weight 112 lb 12.8 oz 112 lb 113 lb 8 oz - General physical appearance well developed, well nourished, no distress - Eyes PERRL, normal ocular movement - ENT normal pinna, normal nares, normal mucosa, no hearing loss, no congestion, poor residential - Neck no masses, no bruits, trachea midline, no lymphadenopathy, no venous distension - Respiratory normal expansion, normal respiratory effort, clear to auscultation - Cardiovascular Cardiovascular exam: Present: normal rate and rhythm, RRR, +S1, +S2. Absent: JVD, tachycardia - Abdomen tender ( mild incisional tenderness; active bowel sounds), bowel sounds (present ), surgical scars (none), masses (none) - Integumentary no rash, no growths, no abnormal pigmentation - Neurologic normal coordination, normal sensation - Musculoskeletal normal gait, normal posture - Psychiatric oriented to time, oriented to person, oriented to place, speech is normal, memory intact - Labs 10/03/18 07:08 10/03/18 07:08 Diabetes panel 10/03/18 Range/Units 07:08 Sodium 136 (133-145) mmol/L Potassium 3.9 (3.3-5.1) mmol/L Chloride 102 (96-108) mmol/L Carbon Dioxide 29 (22-30) mmol/L BUN 5 L (6-20) mg/dl Creatinine 0.6 (0.6-1.1) mg/dl Glucose 92 (70-105) mg/dL Calcium 8.4 L (8.6-10.4) mg/dl AST 11 (0-37) U/l ALT 8 (0-40) U/l Alkaline Phosphatase 57 (39-117) U/L Total Protein 6.0 (5.9-8.4) gm/dL Albumin 2.9 L (3.2-5.2) gm/dL Triglycerides 115 (<150) mg/dl Calcium panel 10/03/18 Range/Units 07:08 Calcium 8.4 L (8.6-10.4) mg/dl Phosphorus 2.2 L (2.7-4.5) mg/dL Albumin 2.9 L (3.2-5.2) gm/dL Pituitary panel 10/03/18 Range/Units 07:08 Sodium 136 (133-145) mmol/L Potassium 3.9 (3.3-5.1) mmol/L Chloride 102 (96-108) mmol/L Carbon Dioxide 29 (22-30) mmol/L BUN 5 L (6-20) mg/dl Creatinine 0.6 (0.6-1.1) mg/dl Glucose 92 (70-105) mg/dL Calcium 8.4 L (8.6-10.4) mg/dl Adrenal panel 10/03/18 Range/Units 07:08 Sodium 136 (133-145) mmol/L Potassium 3.9 (3.3-5.1) mmol/L Chloride 102 (96-108) mmol/L Carbon Dioxide 29 (22-30) mmol/L BUN 5 L (6-20) mg/dl Creatinine 0.6 (0.6-1.1) mg/dl Glucose 92 (70-105) mg/dL Calcium 8.4 L (8.6-10.4) mg/dl Total Bilirubin 0.7 (0.0-1.0) mg/dL AST 11 (0-37) U/l ALT 8 (0-40) U/l Alkaline Phosphatase 57 (39-117) U/L Total Protein 6.0 (5.9-8.4) gm/dL Albumin 2.9 L (3.2-5.2) gm/dL Assessment and Plan (1) Partial obstruction of small intestine Status: Acute Assessment and plan: Clear liquids with MiraLAX 2 glasses per day Small bowel follow-through to be done tonight Current Visit: Yes (2) Nondiabetic gastroparesis Status: Chronic Assessment and plan: Started on erythromycin 500 mg 4 times a day for peristaltic activity Current Visit: No (3) Constipation due to neurogenic bowel Status: Acute Assessment and plan: RELISTOR 12 mg subcutaneous 4 days Current Visit: No (4) Gastroparesis Status: Chronic Current Visit: No (5) GERD (gastroesophageal reflux disease) Status: Chronic Current Visit: No (6) Polysubstance abuse Problem details: History of polysubstance abuse Status: Chronic Current Visit: No (7) Bipolar disorder Status: Chronic Current Visit: No - Time Spent With Patient Total time spent is greater than 50% in coordination of care (as documented) at patient's floor/unit and/or counseling patient:
[2018-10-03] MEDS: LORazepam 2 MG/ML VIAL IV PRN (22:09)
[2018-10-04] MEDS: LORazepam 2 MG/ML VIAL IV PRN ×2 (03:57→10:12)
[2018-10-04] MEDS: 0.9 % SODIUM CHLORIDE 1,000 ML IV SCH ×4 (04:28→22:36)
[2018-10-04] MEDS: ERYTHROMYCIN BASE 250 MG CAPSULE PO SCH ×4 (06:20→22:56)
--- NOTE | 2018-10-04 08:30 | XRay Report ---
CLINICAL INFORMATION: Atypical ileus versus recurrent distal small bowel obstruction. COMPARISON: Plain films 10/03/2018 0622 hours TECHNIQUE: Water-soluble contrast was ingested by the patient and serial abdominal x-rays were obtained over the course of six hours FINDINGS: The stomach, duodenum, jejunum and proximal ileum are moderately dilated. A small portion of the right colon is mildly opacified only on the six hour delayed film. Findings bowel with high-grade distal small bowel obstruction. The transition point is not identified IMPRESSION: Recurrent high-grade distal small bowel obstruction. Interpreted and Authenticated by: Vickey George 10/04/18
--- NOTE | 2018-10-04 08:34 | XRay Report ---
CLINICAL INFORMATION: FOLLOW -UP OF SMALL BOWEL OBSTRUCTION COMPARISON: Small bowel follow-through study performed less than 12 hours prior. FINDINGS: Supine and upright abdominal x-rays were obtained approximately 15 hours following commencement of small bowel follow-through study yesterday. The film shows most of the enteric contrast persisting within markedly dilated loops of the distal jejunum and ileum. There is only a small amount of contrast migrating into the right colon. No contrast seen in the transverse, left colon or rectosigmoid segments. IMPRESSION: High-grade partial distal small bowel obstruction. The wall and plica circulares folds of a dilated small bowel segment, in the upper abdomen, appear thickened which suggests the possibility of ischemia Interpreted and Authenticated by: Vickey George 10/04/18
[2018-10-04 09:06] LABS: Basophils # (Auto) 0 K/mcL (0.0-0.3); Basophils % (Auto) 0.2 % (0.0-2.0); Eosinophils # (Auto) 0.4 K/mcL (0.0-0.7); Eosinophils % (Auto) 9.5 % (0.0-7.0); Granulocytes % (Auto) 56.3 % (38.0-78.0); Lymphocytes # (Auto) 0.8 K/mcL (1.5-4.8); Lymphocytes % (Auto) 18.1 % (15.5-49.0); Mean Cell Volume 93.3 fL (80.0-100.0); Mean Corpuscular Hemoglobin 31.7 pg (26.0-34.0); Monocytes # (Auto) 0.7 K/mcL (0.1-0.9); Monocytes % (Auto) 15.9 % (1.0-12.0); Platelet Count 433 K/mcL (140-440); RBC 3.99 M/mcL (4.00-5.20); Red Cell Distribution Width 13.1 % (11.5-14.5)
[2018-10-04 09:26] LABS: ALT/SGPT 11 U/l (0-40); Albumin 3.3 gm/dL (3.2-5.2); Albumin/Globulin Ratio 0.9 (1.0-2.3); Alkaline Phosphatase 59 U/L (39-117); Bilirubin,Direct < 0.2 mg/dL (0.0-0.3); Blood Urea Nitrogen 8 mg/dl (6-20); Gamma Glutamyl Transpeptidase 6 U/L (5-36); Uric Acid 3.1 mg/dL (2.5-8.0)
[2018-10-04] MEDS: levETIRAcetam 500 MG in 0.9 % SODIUM CHLORIDE 100 ML IV SCH ×2 (09:59→20:11)
[2018-10-04] MEDS: POLYETHYLENE GLYCOL 3350 17 GM PACKET PO SCH ×2 (09:59→20:10)
[2018-10-04] MEDS ORDERED: 0.9 % SODIUM CHLORIDE 10 ML SYRINGE IV PRN (11:18)
--- NOTE | 2018-10-04 15:13 | XRay Report ---
CLINICAL INFORMATION: Confirm NG placement COMPARISON: Supine abdomen 10/04/2018 0648 hours FINDINGS: NG tip overlies the gastric antrum in satisfactory position. Multiple loops of moderately dilated small bowel again noted. The enteric contrast has now progressed into the colon which is unremarkable. No free air. IMPRESSION: High-grade distal small bowel obstruction - enteric contrast has now migrated into the colon after long delay. NG tube has been placed and is in satisfactory position. Interpreted and Authenticated by: Vickey George 10/04/18
--- NOTE | 2018-10-04 17:19 | General Surgery Progress Note ---
Subjective Narrative: Note initiated : 10/04/18 at 5:18 pm Service Date, if different from initiated Date: [] Patient: Annette Cervantes a 48 y/o F admitted on 09/29/18 for Rt Hip Pain, Abd Pain. Chief Complaint: [] Objective Temp Pulse Resp BP Pulse Ox 97.8 F 95 H 14 126/92 95 10/04/18 15:26 10/04/18 15:26 10/04/18 15:26 10/04/18 15:26 10/04/18 15:26 - Additional Data Intake & Output - Last 24 hours: Intake & Output 10/02/18 10/03/18 10/04/18 10/05/18 05:59 05:59 05:59 05:59 Intake Total 3487.0909 / 3487.0909 4325 / 4325 3520 / 3520 1210 / 1210 Output Total 4300 / 4300 2275 / 2275 700 / 700 300 / 300 Balance -812.9091 / -812.9091 2050 / 2050 2820 / 2820 910 / 910 Weight 112 lb 113 lb 8 oz 114 lb 114 lb - Labs 10/04/18 08:11 10/04/18 08:10 Diabetes panel 10/04/18 Range/Units 08:10 Sodium 137 (133-145) mmol/L Potassium 3.8 (3.3-5.1) mmol/L Chloride 100 (96-108) mmol/L Carbon Dioxide 26 (22-30) mmol/L BUN 8 (6-20) mg/dl Creatinine 0.7 (0.6-1.1) mg/dl Glucose 140 H (70-105) mg/dL Calcium 8.8 (8.6-10.4) mg/dl AST 13 (0-37) U/l ALT 11 (0-40) U/l Alkaline Phosphatase 59 (39-117) U/L Total Protein 6.8 (5.9-8.4) gm/dL Albumin 3.3 (3.2-5.2) gm/dL Triglycerides 118 (<150) mg/dl Calcium panel 10/04/18 Range/Units 08:10 Calcium 8.8 (8.6-10.4) mg/dl Phosphorus 3.4 (2.7-4.5) mg/dL Albumin 3.3 (3.2-5.2) gm/dL Pituitary panel 10/04/18 Range/Units 08:10 Sodium 137 (133-145) mmol/L Potassium 3.8 (3.3-5.1) mmol/L Chloride 100 (96-108) mmol/L Carbon Dioxide 26 (22-30) mmol/L BUN 8 (6-20) mg/dl Creatinine 0.7 (0.6-1.1) mg/dl Glucose 140 H (70-105) mg/dL Calcium 8.8 (8.6-10.4) mg/dl Adrenal panel 10/04/18 Range/Units 08:10 Sodium 137 (133-145) mmol/L Potassium 3.8 (3.3-5.1) mmol/L Chloride 100 (96-108) mmol/L Carbon Dioxide 26 (22-30) mmol/L BUN 8 (6-20) mg/dl Creatinine 0.7 (0.6-1.1) mg/dl Glucose 140 H (70-105) mg/dL Calcium 8.8 (8.6-10.4) mg/dl Total Bilirubin 0.4 (0.0-1.0) mg/dL AST 13 (0-37) U/l ALT 11 (0-40) U/l Alkaline Phosphatase 59 (39-117) U/L Total Protein 6.8 (5.9-8.4) gm/dL Albumin 3.3 (3.2-5.2) gm/dL Assessment and Plan (1) Partial obstruction of small intestine Status: Acute Assessment and plan: PICC line for TPN Recheck abdominal x-rays in the morning Nasogastric decompression Current Visit: Yes (2) Nondiabetic gastroparesis Status: Chronic Assessment and plan: Started on erythromycin 500 mg 4 times a day for peristaltic activity Current Visit: No (3) Constipation due to neurogenic bowel Status: Acute Current Visit: No (4) GERD (gastroesophageal reflux disease) Status: Chronic Current Visit: No (5) Polysubstance abuse Problem details: History of polysubstance abuse Status: Chronic Current Visit: No (6) Bipolar disorder Status: Chronic Current Visit: No - Time Spent With Patient Total time spent is greater than 50% in coordination of care (as documented) at patient's floor/unit and/or counseling patient:
--- NOTE | 2018-10-04 19:44 | XRay Report ---
CLINICAL INFORMATION: PICC PLACEMENT COMPARISON: 09/30/2018 FINDINGS: Right PICC line tip overlies the SVC brachycephalic junction. NG tube extends off the edge of the film tip overlies the gastric antrum. Cardiomediastinal silhouette and pulmonary vessels are normal. Lungs are clear. No effusions IMPRESSION: PICC line tip overlying the SVC. No acute arterial pulmonary disease Interpreted and Authenticated by: Vickey George 10/04/18
[2018-10-04] MEDS: 0.9 % SODIUM CHLORIDE 10 ML SYRINGE IV SCH (20:14)
[2018-10-05] MEDS: 0.9 % SODIUM CHLORIDE 1,000 ML IV SCH ×6 (00:57→23:08)
[2018-10-05] MEDS: ERYTHROMYCIN BASE 250 MG CAPSULE PO SCH ×5 (05:30→23:15)
[2018-10-05] MEDS ORDERED: TPN PER PHARMACY IV SCH (07:38)
[2018-10-05] MEDS: LORazepam 2 MG/ML VIAL IV PRN ×2 (08:12→23:23)
[2018-10-05] MEDS: POLYETHYLENE GLYCOL 3350 17 GM PACKET PO SCH ×2 (09:12→21:06)
[2018-10-05] MEDS: 0.9 % SODIUM CHLORIDE 10 ML SYRINGE IV SCH ×2 (09:13→21:09)
[2018-10-05 09:16] LABS: ALT/SGPT 8 U/l (0-40); Albumin 2.8 gm/dL (3.2-5.2); Alkaline Phosphatase 55 U/L (39-117); Bilirubin,Direct < 0.2 mg/dL (0.0-0.3); Blood Urea Nitrogen 9 mg/dl (6-20); Gamma Glutamyl Transpeptidase 5 U/L (5-36); Uric Acid 3.3 mg/dL (2.5-8.0)
[2018-10-05] MEDS: levETIRAcetam 500 MG in 0.9 % SODIUM CHLORIDE 100 ML IV SCH ×2 (09:28→21:06)
--- NOTE | 2018-10-05 09:48 | XRay Report ---
CLINICAL INFORMATION: FOLLOW -UP OF SMALL BOWEL OBSTRUCTION COMPARISON: 10/04/2018 FINDINGS: NG tube remains in stable satisfactory position of the tip in the expected location of gastric antrum. The stomach and small bowel are completely decompressed with only minimal gas seen within a few distal small bowel loops. Enteric contrast is entirely within the colon which appears unremarkable with the exception of a hypermobile cecum. Most of the enteric contrast has been evacuated since prior x-ray. There is no free air or soft tissue mass. IMPRESSION: Resolving distal small bowel obstruction Interpreted and Authenticated by: Vickey George 10/05/18
[2018-10-05] MEDS: SODIUM CHLORIDE IV SCH (12:18)
[2018-10-05] MEDS: CALCIUM GLUCONATE IV SCH (12:18)
[2018-10-05] MEDS: [UNRECOGNIZED DRUG - OTHER] IV SCH (12:18)
[2018-10-05] MEDS: MAGNESIUM SULFATE IV SCH (12:18)
--- NOTE | 2018-10-05 12:41 | General Surgery Progress Note ---
Subjective Patient reports: feels better, pain is less, flatus, bowel movement, afebrile Narrative: Note initiated : 10/05/18 at 12:39 pm Service Date, if different from initiated Date: [] Patient: Annette Cervantes a 48 y/o F admitted on 09/29/18 for Rt Hip Pain, Abd Pain. Chief Complaint: [ppatient states that she feels better. She had 4 bowel movements last evening and has had 2 bowel movements today. Her abdominal discomfort is improved. She denies nausea and states that she feels hungry. Abdominal x-ray shows most of the contrast in her large intestine. She still has some gaseous distention of her small bowel. TPN has been started.] Objective Temp Pulse Resp BP Pulse Ox 98.1 F 77 12 116/99 96 10/05/18 07:14 10/05/18 07:14 10/05/18 07:14 10/05/18 07:14 10/05/18 07:14 - Additional Data Intake & Output - Last 24 hours: Intake & Output 10/03/18 10/04/18 10/05/18 10/06/18 05:59 05:59 05:59 05:59 Intake Total 4325 / 4325 3520 / 3520 2315 / 2315 1105 / 1105 Output Total 2275 / 2275 700 / 700 1100 / 1100 Balance 2049 / 2049 2820 / 2820 1215 / 1215 1105 / 1105 Weight 113 lb 8 oz 114 lb 113 lb 8 oz 113 lb 8 oz - General physical appearance moderate distress, moderate pain, cachectic, chronically ill - Eyes PERRL, normal ocular movement - ENT normal pinna, normal nares, normal mucosa, no hearing loss, no congestion - Neck no masses, no bruits, trachea midline, no lymphadenopathy, no venous distension - Respiratory normal expansion, normal respiratory effort, clear to auscultation - Cardiovascular Cardiovascular exam: Present: normal rate and rhythm, RRR, +S1, +S2. Absent: JVD, tachycardia - Abdomen distended (abdomen is distended but improved from yesterday ;she has mild tenderness to palpation.. She has much more active bowel sounds; her incision looks good) - Integumentary no rash, no growths, no abnormal pigmentation - Neurologic normal coordination, normal sensation - Musculoskeletal normal gait, normal posture - Psychiatric oriented to time, oriented to person, oriented to place, speech is normal, memory intact - Labs 10/04/18 08:11 10/05/18 08:01 Diabetes panel 10/05/18 Range/Units 08:01 Sodium 140 (133-145) mmol/L Potassium 3.8 (3.3-5.1) mmol/L Chloride 103 (96-108) mmol/L Carbon Dioxide 27 (22-30) mmol/L BUN 9 (6-20) mg/dl Creatinine 0.7 (0.6-1.1) mg/dl Glucose 82 (70-105) mg/dL Calcium 8.2 L (8.6-10.4) mg/dl AST 10 (0-37) U/l ALT 8 (0-40) U/l Alkaline Phosphatase 55 (39-117) U/L Total Protein 5.6 L (5.9-8.4) gm/dL Albumin 2.8 L (3.2-5.2) gm/dL Triglycerides 149 (<150) mg/dl Calcium panel 10/05/18 Range/Units 08:01 Calcium 8.2 L (8.6-10.4) mg/dl Phosphorus 2.7 (2.7-4.5) mg/dL Albumin 2.8 L (3.2-5.2) gm/dL Pituitary panel 10/05/18 Range/Units 08:01 Sodium 140 (133-145) mmol/L Potassium 3.8 (3.3-5.1) mmol/L Chloride 103 (96-108) mmol/L Carbon Dioxide 27 (22-30) mmol/L BUN 9 (6-20) mg/dl Creatinine 0.7 (0.6-1.1) mg/dl Glucose 82 (70-105) mg/dL Calcium 8.2 L (8.6-10.4) mg/dl Adrenal panel 10/05/18 Range/Units 08:01 Sodium 140 (133-145) mmol/L Potassium 3.8 (3.3-5.1) mmol/L Chloride 103 (96-108) mmol/L Carbon Dioxide 27 (22-30) mmol/L BUN 9 (6-20) mg/dl Creatinine 0.7 (0.6-1.1) mg/dl Glucose 82 (70-105) mg/dL Calcium 8.2 L (8.6-10.4) mg/dl Total Bilirubin 0.5 (0.0-1.0) mg/dL AST 10 (0-37) U/l ALT 8 (0-40) U/l Alkaline Phosphatase 55 (39-117) U/L Total Protein 5.6 L (5.9-8.4) gm/dL Albumin 2.8 L (3.2-5.2) gm/dL Assessment and Plan (1) Partial obstruction of small intestine Status: Acute Assessment and plan: Recheck abdominal x-rays in the morning Nasogastric decompression Current Visit: Yes (2) Nondiabetic gastroparesis Status: Chronic Assessment and plan: Started on erythromycin 500 mg 4 times a day for peristaltic activity Current Visit: No (3) Constipation due to neurogenic bowel Status: Acute Current Visit: No (4) GERD (gastroesophageal reflux disease) Status: Chronic Current Visit: No (5) Polysubstance abuse Problem details: History of polysubstance abuse Status: Chronic Current Visit: No (6) Bipolar disorder Status: Chronic Current Visit: No - Time Spent With Patient Total time spent is greater than 50% in coordination of care (as documented) at patient's floor/unit and/or counseling patient:
--- NOTE | 2018-10-05 15:33 | Operative Note ---
DATE OF OPERATION: 09/30/2018 PREOPERATIVE DIAGNOSIS: Small-bowel obstruction. POSTOPERATIVE DIAGNOSIS: Intestinal pseudoobstruction with thick, inspissated, constipated stool blocking the distal ileum and right colon. PROCEDURE: Exploratory laparotomy. SURGEON: Tom Hansen M.D. FINDINGS: Major dilation of the proximal bowel with transition point in the proximal ileum with thick stool filling the terminal ileum and right colon. Gas and liquid could be easily pushed into the right colon through the terminal ileum without evidence of an obstructing point. There was no major inflammation of the terminal ileum. The ileal wall was collapsed and slightly thickened, but no infection or inflammation was noted. There was no thickening of the mesentery. DESCRIPTION OF PROCEDURE: Under general anesthesia, the patient's abdomen was prepped and draped in a sterile field. Timeout procedure was carried out as per protocol. Midline incision was made. Upon entering the abdomen, there was a moderate amount of straw-colored ascitic fluid that was suctioned. The dilated proximal bowel was inspected and appeared to be otherwise normal. The distal bowel was inspected, and in the proximal ileum the bowel showed a marked transition with the proximal bowel measuring about 6 cm and the distal bowel about 1.5 cm. The distal bowel appeared to be spastic; however, even with compression it showed peristaltic activity. I was able to gently push air and liquid from the dilated proximal bowel into the terminal ileum and it dilated once it was filled with gas and liquid. The gas and liquid was pushed into the right colon without difficulty. There was some thick, inspissated stool in the cecum and the ascending colon, but this was easily moved. The bowel was then inspected from the ileocecal valve to ligament of Treitz. Except for the dilation noted, no other pathology was noted. The colon was palpated from the cecum down to the rectum without any abnormality being noted. There was some hard stool in the descending and sigmoid colon. No pathologic findings could be seen. The cecum and ascending colon were easily visualized, and the descending colon and sigmoid were visualized. The mid-portion of the transverse colon was also visualized and no abnormalities were noted. I could palpate the splenic flexure, but it was not totally visualized. The stomach was palpated and the nasogastric tube was positioned in the stomach. Peritoneum was irrigated and sponge, needle, instrument and blade counts were verified as correct. The fascia and peritoneum were closed with running #1 Prolene. Subcutaneous tissue was minimal. Skin was closed with yuridia. Tegaderm dressing was placed. The patient tolerated the procedure well. She was awakened, transferred to a bed, and taken to the postanesthetic care unit in stable, satisfactory condition. LCS:lupe Job ID: [id number] Doc ID: [id number] Tom Hansen M.D.
[2018-10-05] MEDS: FAT EMULSION 20% 250 ML IV SCH (16:15)
[2018-10-05] MEDS: ONDANSETRON 4 MG/2 ML VIAL IV PRN (21:31)
[2018-10-06] MEDS: 0.9 % SODIUM CHLORIDE 1,000 ML IV SCH ×5 (04:14→23:58)
[2018-10-06] MEDS: ERYTHROMYCIN BASE 250 MG CAPSULE PO SCH ×4 (05:53→23:51)
[2018-10-06] MEDS: ONDANSETRON 4 MG/2 ML VIAL IV PRN ×4 (06:02→21:09)
--- NOTE | 2018-10-06 07:45 | XRay Report ---
CLINICAL INFORMATION: FOLLOW -UP OF SMALL BOWEL OBSTRUCTION COMPARISON: 09/27/2018 FINDINGS: NG tube is in stable satisfactory position. Stomach and small bowel are completely decompressed. Enteric contrast persists within the transverse and rectosigmoid segment of colon, although it has decreased from previous study following evacuation. No free air. IMPRESSION: Complete resolution of small bowel obstruction pattern. Continued evacuation of enteric contrast in the colon since yesterday Interpreted and Authenticated by: Vickey George 10/06/18
[2018-10-06] MEDS: levETIRAcetam 500 MG in 0.9 % SODIUM CHLORIDE 100 ML IV SCH ×2 (09:30→21:09)
[2018-10-06] MEDS: POLYETHYLENE GLYCOL 3350 17 GM PACKET PO SCH ×3 (09:31→21:09)
[2018-10-06] MEDS: 0.9 % SODIUM CHLORIDE 10 ML SYRINGE IV SCH ×2 (09:31→21:21)
[2018-10-06] MEDS: INSULIN LISPRO 1 UNIT/0.01 ML UNIT SQ SCH ×2 (12:44→17:34)
[2018-10-06 12:59] LABS: ALT/SGPT < 5 U/l (0-40); Albumin 2.8 gm/dL (3.2-5.2); Alkaline Phosphatase 50 U/L (39-117); Bilirubin,Direct < 0.2 mg/dL (0.0-0.3); Blood Urea Nitrogen 6 mg/dl (6-20); Gamma Glutamyl Transpeptidase 5 U/L (5-36); Uric Acid 2.4 mg/dL (2.5-8.0)
[2018-10-06 13:04] LABS: Prealbumin 8.1 mg/dl (20-40)
[2018-10-06] MEDS: CALCIUM GLUCONATE IV SCH (13:54)
[2018-10-06] MEDS: SODIUM CHLORIDE IV SCH (13:54)
[2018-10-06] MEDS: [UNRECOGNIZED DRUG - OTHER] IV SCH (13:54)
[2018-10-06] MEDS: MAGNESIUM SULFATE IV SCH (13:54)
[2018-10-06] MEDS: CALCIUM GLUCONATE 10 MEQ, MAGNESIUM SULFATE 16.24 MEQ, SODIUM CHLORIDE 80 MEQ, POTASSIU... IV SCH (15:11)
[2018-10-06] MEDS: FAT EMULSION 20% 250 ML IV SCH (15:11)
--- NOTE | 2018-10-06 15:22 | General Surgery Progress Note ---
Subjective Patient reports: feels better, pain is less, flatus, bowel movement, afebrile Narrative: Note initiated : 10/06/18 at 3:20 pm Service Date, if different from initiated Date: [] Patient: Annette Cervantes a 48 y/o F admitted on 09/29/18 for Rt Hip Pain, Abd Pain. Chief Complaint: [patient continues to feel better. She had more bowel movements last evening. She has less abdominal distention. Abdominal x-ray shows contrast still in her colon. She complains of hunger. She denies nausea. ] Objective Temp Pulse Resp BP Pulse Ox 98.8 F 75 14 107/64 93 10/06/18 11:24 10/06/18 11:24 10/06/18 11:24 10/06/18 11:24 10/06/18 11:24 - Additional Data Intake & Output - Last 24 hours: Intake & Output 10/04/18 10/05/18 10/06/18 10/07/18 05:59 05:59 05:59 05:59 Intake Total 3520 / 3520 2315 / 2315 3550 / 3550 1105 / 1105 Output Total 700 / 700 1100 / 1100 4580 / 4580 150 / 150 Balance 2820 / 2820 1215 / 1215 -1030 / -1030 955 / 955 Weight 114 lb 113 lb 8 oz 113 lb - General physical appearance no distress, moderate pain, cachectic, chronically ill - Eyes PERRL, normal ocular movement - ENT normal pinna, normal nares, normal mucosa, no hearing loss, no congestion, poor snf - Neck no masses, no bruits, trachea midline, no lymphadenopathy, no venous distension - Respiratory normal expansion, normal respiratory effort, clear to auscultation - Cardiovascular Cardiovascular exam: Present: normal rate and rhythm, RRR, +S1, +S2. Absent: JVD, tachycardia - Abdomen tender (mmmmmmmild abdominal tenderness; distention is improved; she has much more active bowel sounds), bowel sounds (present), surgical scars (none), masses (none), distended - Integumentary no rash, no growths, no abnormal pigmentation - Neurologic normal coordination, normal sensation - Musculoskeletal normal gait, normal posture - Psychiatric oriented to time, oriented to person, oriented to place, speech is normal, memory intact - Labs 10/04/18 08:11 10/06/18 10:38 Diabetes panel 10/06/18 Range/Units 10:38 Sodium 134 (133-145) mmol/L Potassium 3.7 (3.3-5.1) mmol/L Chloride 98 (96-108) mmol/L Carbon Dioxide 27 (22-30) mmol/L BUN 6 (6-20) mg/dl Creatinine 0.6 (0.6-1.1) mg/dl Glucose 117 H (70-105) mg/dL Calcium 8.2 L (8.6-10.4) mg/dl AST 10 (0-37) U/l ALT < 5 (0-40) U/l Alkaline Phosphatase 50 (39-117) U/L Total Protein 5.7 L (5.9-8.4) gm/dL Albumin 2.8 L (3.2-5.2) gm/dL Triglycerides 109 (<150) mg/dl Calcium panel 10/06/18 Range/Units 10:38 Calcium 8.2 L (8.6-10.4) mg/dl Phosphorus 2.3 L (2.7-4.5) mg/dL Albumin 2.8 L (3.2-5.2) gm/dL Pituitary panel 10/06/18 Range/Units 10:38 Sodium 134 (133-145) mmol/L Potassium 3.7 (3.3-5.1) mmol/L Chloride 98 (96-108) mmol/L Carbon Dioxide 27 (22-30) mmol/L BUN 6 (6-20) mg/dl Creatinine 0.6 (0.6-1.1) mg/dl Glucose 117 H (70-105) mg/dL Calcium 8.2 L (8.6-10.4) mg/dl Adrenal panel 10/06/18 Range/Units 10:38 Sodium 134 (133-145) mmol/L Potassium 3.7 (3.3-5.1) mmol/L Chloride 98 (96-108) mmol/L Carbon Dioxide 27 (22-30) mmol/L BUN 6 (6-20) mg/dl Creatinine 0.6 (0.6-1.1) mg/dl Glucose 117 H (70-105) mg/dL Calcium 8.2 L (8.6-10.4) mg/dl Total Bilirubin 0.3 (0.0-1.0) mg/dL AST 10 (0-37) U/l ALT < 5 (0-40) U/l Alkaline Phosphatase 50 (39-117) U/L Total Protein 5.7 L (5.9-8.4) gm/dL Albumin 2.8 L (3.2-5.2) gm/dL Assessment and Plan (1) Partial obstruction of small intestine Status: Acute Assessment and plan: DC NG Clear liquids MiraLAX twice daily Follow-up abdominal x-ray from the morning Current Visit: Yes (2) Nondiabetic gastroparesis Status: Chronic Assessment and plan: Started on erythromycin 500 mg 4 times a day for peristaltic activity Current Visit: No (3) Constipation due to neurogenic bowel Status: Acute Current Visit: No (4) GERD (gastroesophageal reflux disease) Status: Chronic Current Visit: No (5) Polysubstance abuse Problem details: History of polysubstance abuse Status: Chronic Current Visit: No (6) Bipolar disorder Status: Chronic Current Visit: No - Time Spent With Patient Total time spent is greater than 50% in coordination of care (as documented) at patient's floor/unit and/or counseling patient:
[2018-10-06] MEDS: MAGNESIUM HYDROXIDE 30 ML ORAL.SUSP PO SCH (21:09)
[2018-10-06] MEDS: LORazepam 2 MG/ML VIAL IV PRN (21:09)
[2018-10-07] MEDS: ERYTHROMYCIN BASE 250 MG CAPSULE PO SCH ×3 (05:49→17:39)
[2018-10-07] MEDS: INSULIN LISPRO 1 UNIT/0.01 ML UNIT SQ SCH ×4 (05:50→17:41)
[2018-10-07 05:58] LABS: Basophils # (Auto) 0 K/mcL (0.0-0.3); Basophils % (Auto) 0.2 % (0.0-2.0); Eosinophils # (Auto) 0.5 K/mcL (0.0-0.7); Eosinophils % (Auto) 7.8 % (0.0-7.0); Granulocytes % (Auto) 66.7 % (38.0-78.0); Lymphocytes # (Auto) 1.2 K/mcL (1.5-4.8); Lymphocytes % (Auto) 17.6 % (15.5-49.0); Mean Cell Volume 93.3 fL (80.0-100.0); Mean Corpuscular HGB Conc 33.6 g/dL (31.0-36.0); Mean Corpuscular Hemoglobin 31.4 pg (26.0-34.0); Monocytes # (Auto) 0.5 K/mcL (0.1-0.9); Monocytes % (Auto) 7.7 % (1.0-12.0); Platelet Count 369 K/mcL (140-440); RBC 3.54 M/mcL (4.00-5.20)
[2018-10-07 06:45] LABS: ALT/SGPT 6 U/l (0-40); Albumin 2.9 gm/dL (3.2-5.2); Albumin/Globulin Ratio 1.1 (1.0-2.3); Alkaline Phosphatase 47 U/L (39-117); Bilirubin,Direct < 0.2 mg/dL (0.0-0.3); Blood Urea Nitrogen 7 mg/dl (6-20); Gamma Glutamyl Transpeptidase 5 U/L (5-36); Uric Acid 1.5 mg/dL (2.5-8.0)
[2018-10-07] MEDS ORDERED: POTASSIUM PHOSPHATE 20 MEQ in DEXTROSE 5% IN WATER 250 ML IV ONE (07:32)
[2018-10-07] MEDS ORDERED: POTASSIUM PHOSPHATE 40 MEQ in DEXTROSE 5% IN WATER 500 ML IV ONE (08:00)
[2018-10-07] MEDS: levETIRAcetam 500 MG in 0.9 % SODIUM CHLORIDE 100 ML IV SCH ×2 (08:12→20:38)
[2018-10-07] MEDS: 0.9 % SODIUM CHLORIDE 1,000 ML IV SCH ×2 (08:13→15:15)
[2018-10-07] MEDS: MAGNESIUM HYDROXIDE 30 ML ORAL.SUSP PO SCH ×2 (08:36→20:38)
[2018-10-07] MEDS: POLYETHYLENE GLYCOL 3350 17 GM PACKET PO SCH ×3 (08:36→20:39)
[2018-10-07] MEDS: 0.9 % SODIUM CHLORIDE 10 ML SYRINGE IV SCH ×2 (08:36→20:40)
[2018-10-07] MEDS: LORazepam 2 MG/ML VIAL IV PRN (09:45)
--- NOTE | 2018-10-07 10:44 | XRay Report ---
CLINICAL INFORMATION: FOLLOW -UP OF SMALL BOWEL OBSTRUCTION COMPARISON: 10/06/2018 FINDINGS: NG tube is been removed. Stomach and small bowel remain decompressed. Moderate residual enteric contrast is seen within the transverse, descending and rectosigmoid colonic segments which appear unremarkable. No free air, soft tissue mass or pathologic calcification. IMPRESSION: Negative exam Interpreted and Authenticated by: Vickey George 10/07/18
[2018-10-07] MEDS: NICOTINE 21 MG PATCH TOPICAL SCH (10:48)
--- NOTE | 2018-10-07 12:24 | General Surgery Progress Note ---
Subjective Patient reports: feels better, still having pain, pain is less, tolerating liquids well, flatus, bowel movement, diarrhea, afebrile Narrative: Note initiated : 10/07/18 at 12:22 pm Service Date, if different from initiated Date: [] Patient: Annette Cervantes a 48 y/o F admitted on 09/29/18 for Rt Hip Pain, Abd Pain. Chief Complaint: [patient is feeling better. She is taking in full liquids but has some postprandial crampy abdominal pain and nausea after eating.. She's had 2 incontinent bowel movement. She's also had flatus. She remained somewhat withdrawn but interacts more and answers questions when asked.. She appears to be depressed which is her baseline. The plan is to start her on Mestinon to try to stimulate intestinal activity and hopefully allow her to tolerate feedings with plans for discharge in 3-4 days.] Objective Temp Pulse Resp BP Pulse Ox 98.7 F 87 16 115/74 95 10/07/18 12:00 10/07/18 12:00 10/07/18 12:00 10/07/18 12:00 10/07/18 12:00 - Additional Data Intake & Output - Last 24 hours: Intake & Output 10/05/18 10/06/18 10/07/18 10/08/18 05:59 05:59 05:59 05:59 Intake Total 2315 / 2315 3550 / 3550 2460 / 2460 Output Total 1100 / 1100 4580 / 4580 2700 / 2700 450 / 450 Balance 1215 / 1215 -1030 / -1030 -240 / -240 -450 / -450 Weight 113 lb 8 oz 113 lb 113 lb - General physical appearance no distress, moderate pain, cachectic, chronically ill - Eyes PERRL, normal ocular movement - ENT normal pinna, normal nares, normal mucosa, no hearing loss, no congestion - Neck no masses, no bruits, trachea midline, no lymphadenopathy, no venous distension - Respiratory normal expansion, normal respiratory effort, clear to auscultation - Cardiovascular Cardiovascular exam: Present: normal rate and rhythm, RRR, +S1, +S2. Absent: JVD, tachycardia - Abdomen distended (abdomen is less distended;;; she has good active bowel sounds; tenderness is much improved) - Integumentary no rash, no growths, no abnormal pigmentation - Neurologic normal coordination, normal sensation - Psychiatric oriented to time - Labs 10/07/18 04:30 10/07/18 04:30 Diabetes panel 10/06/18 10/07/18 Range/Units 10:38 04:30 Sodium 134 137 (133-145) mmol/L Potassium 3.7 3.8 (3.3-5.1) mmol/L Chloride 98 102 (96-108) mmol/L Carbon Dioxide 27 28 (22-30) mmol/L BUN 6 7 (6-20) mg/dl Creatinine 0.6 0.6 (0.6-1.1) mg/dl Glucose 117 H 100 (70-105) mg/dL Calcium 8.2 L 7.9 L (8.6-10.4) mg/dl AST 10 10 (0-37) U/l ALT < 5 6 (0-40) U/l Alkaline Phosphatase 50 47 (39-117) U/L Total Protein 5.7 L 5.6 L (5.9-8.4) gm/dL Albumin 2.8 L 2.9 L (3.2-5.2) gm/dL Triglycerides 109 75 (<150) mg/dl Calcium panel 10/06/18 10/07/18 Range/Units 10:38 04:30 Calcium 8.2 L 7.9 L (8.6-10.4) mg/dl Phosphorus 2.3 L 2.3 L (2.7-4.5) mg/dL Albumin 2.8 L 2.9 L (3.2-5.2) gm/dL Pituitary panel 10/06/18 10/07/18 Range/Units 10:38 04:30 Sodium 134 137 (133-145) mmol/L Potassium 3.7 3.8 (3.3-5.1) mmol/L Chloride 98 102 (96-108) mmol/L Carbon Dioxide 27 28 (22-30) mmol/L BUN 6 7 (6-20) mg/dl Creatinine 0.6 0.6 (0.6-1.1) mg/dl Glucose 117 H 100 (70-105) mg/dL Calcium 8.2 L 7.9 L (8.6-10.4) mg/dl Adrenal panel 10/06/18 10/07/18 Range/Units 10:38 04:30 Sodium 134 137 (133-145) mmol/L Potassium 3.7 3.8 (3.3-5.1) mmol/L Chloride 98 102 (96-108) mmol/L Carbon Dioxide 27 28 (22-30) mmol/L BUN 6 7 (6-20) mg/dl Creatinine 0.6 0.6 (0.6-1.1) mg/dl Glucose 117 H 100 (70-105) mg/dL Calcium 8.2 L 7.9 L (8.6-10.4) mg/dl Total Bilirubin 0.3 0.2 (0.0-1.0) mg/dL AST 10 10 (0-37) U/l ALT < 5 6 (0-40) U/l Alkaline Phosphatase 50 47 (39-117) U/L Total Protein 5.7 L 5.6 L (5.9-8.4) gm/dL Albumin 2.8 L 2.9 L (3.2-5.2) gm/dL Assessment and Plan (1) Partial obstruction of small intestine Status: Acute Assessment and plan: Mestinon 60 mg 3 times daily for 2 days then 120 mg 3 times daily MiraLAX twice daily Current Visit: Yes (2) Nondiabetic gastroparesis Status: Chronic Assessment and plan: Started on erythromycin 500 mg 4 times a day for peristaltic activity Current Visit: No (3) Constipation due to neurogenic bowel Status: Acute Current Visit: No (4) GERD (gastroesophageal reflux disease) Status: Chronic Current Visit: No (5) Polysubstance abuse Problem details: History of polysubstance abuse Status: Chronic Current Visit: No (6) Bipolar disorder Status: Chronic Current Visit: No - Time Spent With Patient Total time spent is greater than 50% in coordination of care (as documented) at patient's floor/unit and/or counseling patient:
[2018-10-07] MEDS: CALCIUM GLUCONATE 10 MEQ, MAGNESIUM SULFATE 16.24 MEQ, SODIUM CHLORIDE 80 MEQ, POTASSIU... IV SCH (14:13)
[2018-10-07] MEDS: FAT EMULSION 20% 250 ML IV SCH (15:23)
[2018-10-07] MEDS: PYRIDOSTIGMINE 60 MG TABLET PO SCH ×2 (16:17→20:40)
[2018-10-08] MEDS: 0.9 % SODIUM CHLORIDE 1,000 ML IV SCH ×4 (00:03→22:10)
[2018-10-08] MEDS: INSULIN LISPRO 1 UNIT/0.01 ML UNIT SQ SCH ×4 (00:05→17:28)
[2018-10-08] MEDS: LORazepam 2 MG/ML VIAL IV PRN ×2 (00:53→09:27)
[2018-10-08] MEDS: 0.9 % SODIUM CHLORIDE 10 ML SYRINGE IV SCH ×2 (04:41→09:13)
[2018-10-08] MEDS: ERYTHROMYCIN BASE 250 MG CAPSULE PO SCH ×4 (06:12→17:27)
[2018-10-08 07:21] LABS: ALT/SGPT < 5 U/l (0-40); Albumin 2.8 gm/dL (3.2-5.2); Alkaline Phosphatase 42 U/L (39-117); Bilirubin,Direct < 0.2 mg/dL (0.0-0.3); Blood Urea Nitrogen 10 mg/dl (6-20); Gamma Glutamyl Transpeptidase 5 U/L (5-36); Uric Acid 1.1 mg/dL (2.5-8.0)
--- NOTE | 2018-10-08 09:04 | XRay Report ---
CLINICAL INFORMATION: FOLLOW -UP OF SMALL BOWEL OBSTRUCTION COMPARISON: 10/07/2018 FINDINGS: Stomach and small bowel remain normal. Enteric contrast continues to be evacuated with modest residual within the transverse, descending and rectosigmoid segments. No free free air or soft tissue mass IMPRESSION: Negative Interpreted and Authenticated by: Vickey George 10/08/18
[2018-10-08] MEDS: levETIRAcetam 500 MG in 0.9 % SODIUM CHLORIDE 100 ML IV SCH (09:11)
[2018-10-08] MEDS: PYRIDOSTIGMINE 60 MG TABLET PO SCH ×2 (09:12→17:06)
[2018-10-08] MEDS: NICOTINE 21 MG PATCH TOPICAL SCH (09:12)
[2018-10-08] MEDS: POLYETHYLENE GLYCOL 3350 17 GM PACKET PO SCH ×2 (09:12→09:13)
[2018-10-08] MEDS: MAGNESIUM HYDROXIDE 30 ML ORAL.SUSP PO SCH (12:52)
--- NOTE | 2018-10-08 13:10 | General Surgery Progress Note ---
Subjective Patient reports: feels better, pain is less, tolerating liquids well, flatus, bowel movement, diarrhea, afebrile Narrative: Note initiated : 10/08/18 at 1:07 pm Service Date, if different from initiated Date: [] Patient: Annette Cervantes a 48 y/o F admitted on 09/29/18 for Rt Hip Pain, Abd Pain. Chief Complaint: [patient states that she doesn't feel well.. She is more depressed than have any physical discomfort.. She has had 3 large bowel movements today.. She complains of abdominal pain.. She Asked for Regular Diet. Her Abdominal Distention Is Significantly Less. The Abdominal X-Rays Show More Clearing of Her Colonic Contrast. Her Colon Is Still Dilated..] Objective Temp Pulse Resp BP Pulse Ox 98 F 70 20 96/56 97 10/08/18 12:00 10/08/18 04:00 10/08/18 12:00 10/08/18 12:00 10/08/18 12:00 - Additional Data Intake & Output - Last 24 hours: Intake & Output 10/06/18 10/07/18 10/08/18 10/09/18 05:59 05:59 05:59 05:59 Intake Total 3550 / 3550 2460 / 2460 3681.0909 / 3681.0909 1000 / 1000 Output Total 4580 / 4580 2700 / 2700 1550 / 1550 Balance -1030 / -1030 -240 / -240 2131.0909 / 2131.0909 1000 / 1000 Weight 113 lb 113 lb 114 lb - General physical appearance moderate distress, moderate pain, cachectic, chronically ill - Eyes PERRL, normal ocular movement - ENT normal pinna, normal nares, normal mucosa, no hearing loss, no congestion - Neck no masses, no bruits, trachea midline, no lymphadenopathy, no venous distension - Respiratory normal expansion, normal respiratory effort, clear to auscultation - Cardiovascular Cardiovascular exam: Present: normal rate and rhythm, RRR, +S1, +S2. Absent: JVD, tachycardia - Abdomen tender (mild abdominal tenderness but with very good active bowel sounds at this time; incision looks good), bowel sounds (present), surgical scars ( none), masses (none) - Integumentary no rash, no growths, no abnormal pigmentation - Neurologic normal coordination, normal sensation - Musculoskeletal normal gait, normal posture - Psychiatric oriented to time, oriented to person, oriented to place, speech is normal, memory intact - Labs 10/07/18 04:30 10/08/18 04:00 Diabetes panel 10/08/18 Range/Units 04:00 Sodium 138 (133-145) mmol/L Potassium 4.3 (3.3-5.1) mmol/L Chloride 106 (96-108) mmol/L Carbon Dioxide 27 (22-30) mmol/L BUN 10 (6-20) mg/dl Creatinine 0.5 L (0.6-1.1) mg/dl Glucose 80 (70-105) mg/dL Calcium 8.1 L (8.6-10.4) mg/dl AST 10 (0-37) U/l ALT < 5 (0-40) U/l Alkaline Phosphatase 42 (39-117) U/L Total Protein 5.5 L (5.9-8.4) gm/dL Albumin 2.8 L (3.2-5.2) gm/dL Triglycerides 92 (<150) mg/dl Calcium panel 10/08/18 Range/Units 04:00 Calcium 8.1 L (8.6-10.4) mg/dl Phosphorus 2.5 L (2.7-4.5) mg/dL Albumin 2.8 L (3.2-5.2) gm/dL Pituitary panel 10/08/18 Range/Units 04:00 Sodium 138 (133-145) mmol/L Potassium 4.3 (3.3-5.1) mmol/L Chloride 106 (96-108) mmol/L Carbon Dioxide 27 (22-30) mmol/L BUN 10 (6-20) mg/dl Creatinine 0.5 L (0.6-1.1) mg/dl Glucose 80 (70-105) mg/dL Calcium 8.1 L (8.6-10.4) mg/dl Adrenal panel 10/08/18 Range/Units 04:00 Sodium 138 (133-145) mmol/L Potassium 4.3 (3.3-5.1) mmol/L Chloride 106 (96-108) mmol/L Carbon Dioxide 27 (22-30) mmol/L BUN 10 (6-20) mg/dl Creatinine 0.5 L (0.6-1.1) mg/dl Glucose 80 (70-105) mg/dL Calcium 8.1 L (8.6-10.4) mg/dl Total Bilirubin 0.2 (0.0-1.0) mg/dL AST 10 (0-37) U/l ALT < 5 (0-40) U/l Alkaline Phosphatase 42 (39-117) U/L Total Protein 5.5 L (5.9-8.4) gm/dL Albumin 2.8 L (3.2-5.2) gm/dL Assessment and Plan (1) Partial obstruction of small intestine Status: Acute Assessment and plan: Mestinon 60 mg 3 times daily for 2 days then 120 mg 3 times daily MiraLAX twice daily Discontinue milk of magnesia Advanced to regular diet as tolerated Current Visit: Yes (2) Nondiabetic gastroparesis Status: Chronic Assessment and plan: Started on erythromycin 500 mg 4 times a day for peristaltic activity Current Visit: Yes (3) Constipation due to neurogenic bowel Status: Resolved Current Visit: Yes (4) GERD (gastroesophageal reflux disease) Status: Chronic Current Visit: No (5) Polysubstance abuse Problem details: History of polysubstance abuse Status: Chronic Current Visit: No (6) Bipolar disorder Status: Chronic Current Visit: Yes - Time Spent With Patient Total time spent is greater than 50% in coordination of care (as documented) at patient's floor/unit and/or counseling patient: 15 - 24 minutes
[2018-10-08] MEDS ORDERED: POTASSIUM PHOSPHATE 40 MEQ in DEXTROSE 5% IN WATER 500 ML IV ONE (13:30)
[2018-10-08] MEDS ORDERED: CALCIUM GLUCONATE IV SCH (14:00)
[2018-10-08] MEDS ORDERED: [UNRECOGNIZED DRUG - OTHER] IV SCH (14:00)
[2018-10-08] MEDS ORDERED: MVI IV SCH (14:00)
[2018-10-08] MEDS ORDERED: SODIUM CHLORIDE IV SCH (14:00)
[2018-10-08] MEDS ORDERED: MAGNESIUM SULFATE IV SCH (14:00)
[2018-10-08] MEDS: FAT EMULSION 20% 250 ML IV SCH (17:07)
[2018-10-08] MEDS: ONDANSETRON 4 MG/2 ML VIAL IV PRN (19:09)
[2018-10-09] MEDS: levETIRAcetam 500 MG in 0.9 % SODIUM CHLORIDE 100 ML IV SCH ×3 (00:40→20:47)
[2018-10-09] MEDS: PYRIDOSTIGMINE 60 MG TABLET PO SCH ×4 (00:40→20:48)
[2018-10-09] MEDS: ERYTHROMYCIN BASE 250 MG CAPSULE PO SCH ×5 (00:40→23:37)
[2018-10-09] MEDS: 0.9 % SODIUM CHLORIDE 10 ML SYRINGE IV SCH ×4 (00:41→20:48)
[2018-10-09] MEDS: POLYETHYLENE GLYCOL 3350 17 GM PACKET PO SCH ×4 (00:41→20:48)
[2018-10-09] MEDS: INSULIN LISPRO 1 UNIT/0.01 ML UNIT SQ SCH ×5 (00:44→23:39)
[2018-10-09] MEDS: MEPERIDINE 50 MG TABLET PO PRN ×3 (01:57→21:58)
[2018-10-09] MEDS: 0.9 % SODIUM CHLORIDE 1,000 ML IV SCH ×4 (07:20→21:47)
[2018-10-09] MEDS: LORazepam 2 MG/ML VIAL IV PRN ×2 (07:48→15:58)
[2018-10-09 07:55] LABS: Basophils # (Auto) 0 K/mcL (0.0-0.3); Basophils % (Auto) 0.7 % (0.0-2.0); Granulocytes % (Auto) 58.5 % (38.0-78.0); Lymphocytes # (Auto) 1.2 K/mcL (1.5-4.8); Lymphocytes % (Auto) 17.9 % (15.5-49.0); Mean Cell Volume 94.7 fL (80.0-100.0); Mean Corpuscular HGB Conc 33.2 g/dL (31.0-36.0); Mean Corpuscular Hemoglobin 31.5 pg (26.0-34.0); Monocytes # (Auto) 0.6 K/mcL (0.1-0.9); Monocytes % (Auto) 8.9 % (1.0-12.0); Platelet Count 360 K/mcL (140-440); RBC 3.48 M/mcL (4.00-5.20); Red Cell Distribution Width 13.5 % (11.5-14.5)
[2018-10-09 08:29] LABS: ALT/SGPT 6 U/l (0-40); Albumin 2.9 gm/dL (3.2-5.2); Alkaline Phosphatase 45 U/L (39-117); Bilirubin,Direct < 0.2 mg/dL (0.0-0.3); Blood Urea Nitrogen 13 mg/dl (6-20); Gamma Glutamyl Transpeptidase 6 U/L (5-36)
--- NOTE | 2018-10-09 08:42 | XRay Report ---
CLINICAL INFORMATION: F/U OF COLONIC PSEUDO OBSTRUCTION COMPARISON: 10/08/2018 FINDINGS: The stomach and small bowel remain normal. Enteric contrast in the colon continues to clear slowly: There is still moderate residual. Colon remains normal caliber. No free air, soft tissue mass or organomegaly. IMPRESSION: Slow evacuation of enteric contrast in the colon. Negative exam Interpreted and Authenticated by: Vickey George 10/09/18
[2018-10-09] MEDS: NICOTINE 21 MG PATCH TOPICAL SCH (09:17)
--- NOTE | 2018-10-09 14:06 | General Surgery Progress Note ---
Subjective Patient reports: feels better, still having pain, pain is less, tolerating a regular diet, flatus, bowel movement, afebrile Narrative: Note initiated : 10/09/18 at 2:06 pm Service Date, if different from initiated Date: [] Patient: Annette Cervantes a 48 y/o F admitted on 09/29/18 for Rt Hip Pain, Abd Pain. Chief Complaint: [patient is gradually improving. She is eating more and is having more regular bowel movements. Her abdominal distention is improving.] Objective Temp Pulse Resp BP Pulse Ox 98.1 F 71 15 101/61 94 10/09/18 11:23 10/09/18 11:23 10/09/18 11:23 10/09/18 11:23 10/09/18 11:23 - Additional Data Intake & Output - Last 24 hours: Intake & Output 10/07/18 10/08/18 10/09/18 10/10/18 05:59 05:59 05:59 05:59 Intake Total 2460 / 2460 3931.0909 / 3931.0909 3280 / 3280 1105 / 1105 Output Total 2700 / 2700 1550 / 1550 Balance -240 / -240 2381.0909 / 2381.0909 3279 / 3279 1105 / 1105 Weight 113 lb 114 lb 115 lb - General physical appearance moderate pain, cachectic, chronically ill - Eyes PERRL, normal ocular movement - ENT normal pinna, normal nares, normal mucosa, no hearing loss, no congestion, poor correction - Neck no masses, no bruits, trachea midline, no lymphadenopathy, no venous distension - Respiratory normal expansion, normal respiratory effort, clear to percussion, clear to auscultation - Cardiovascular Cardiovascular exam: Present: normal rate and rhythm, RRR, +S1, +S2. Absent: JVD, tachycardia - Abdomen tender (mild abdominal tenderness; active bowel sounds; incision is healing uneventfully) - Integumentary no rash, no growths, no abnormal pigmentation - Neurologic normal coordination, normal sensation - Musculoskeletal normal gait, normal posture - Psychiatric oriented to time, oriented to person, oriented to place, speech is normal, memory intact - Labs 10/10/18 04:00 10/10/18 04:00 Diabetes panel 10/09/18 Range/Units 05:30 Sodium 135 (133-145) mmol/L Potassium 4.7 (3.3-5.1) mmol/L Chloride 101 (96-108) mmol/L Carbon Dioxide 26 (22-30) mmol/L BUN 13 (6-20) mg/dl Creatinine 0.6 (0.6-1.1) mg/dl Glucose 87 (70-105) mg/dL Calcium 8.4 L (8.6-10.4) mg/dl AST 12 (0-37) U/l ALT 6 (0-40) U/l Alkaline Phosphatase 45 (39-117) U/L Total Protein 5.8 L (5.9-8.4) gm/dL Albumin 2.9 L (3.2-5.2) gm/dL Triglycerides 92 (<150) mg/dl Calcium panel 10/09/18 Range/Units 05:30 Calcium 8.4 L (8.6-10.4) mg/dl Phosphorus 4.0 (2.7-4.5) mg/dL Albumin 2.9 L (3.2-5.2) gm/dL Pituitary panel 10/09/18 Range/Units 05:30 Sodium 135 (133-145) mmol/L Potassium 4.7 (3.3-5.1) mmol/L Chloride 101 (96-108) mmol/L Carbon Dioxide 26 (22-30) mmol/L BUN 13 (6-20) mg/dl Creatinine 0.6 (0.6-1.1) mg/dl Glucose 87 (70-105) mg/dL Calcium 8.4 L (8.6-10.4) mg/dl Adrenal panel 10/09/18 Range/Units 05:30 Sodium 135 (133-145) mmol/L Potassium 4.7 (3.3-5.1) mmol/L Chloride 101 (96-108) mmol/L Carbon Dioxide 26 (22-30) mmol/L BUN 13 (6-20) mg/dl Creatinine 0.6 (0.6-1.1) mg/dl Glucose 87 (70-105) mg/dL Calcium 8.4 L (8.6-10.4) mg/dl Total Bilirubin < 0.2 (0.0-1.0) mg/dL AST 12 (0-37) U/l ALT 6 (0-40) U/l Alkaline Phosphatase 45 (39-117) U/L Total Protein 5.8 L (5.9-8.4) gm/dL Albumin 2.9 L (3.2-5.2) gm/dL Assessment and Plan (1) Partial obstruction of small intestine Status: Resolved Assessment and plan: Mestinon 60 mg 3 times daily for 2 days then 120 mg 3 times daily MiraLAX twice daily Discontinue milk of magnesia Advanced to regular diet as tolerated Current Visit: Yes (2) Nondiabetic gastroparesis Status: Chronic Assessment and plan: Started on erythromycin 500 mg 4 times a day for peristaltic activity Current Visit: Yes (3) Constipation due to neurogenic bowel Status: Resolved Assessment and plan: RELISTOR 12 mg subcutaneous 4 days Current Visit: Yes (4) GERD (gastroesophageal reflux disease) Status: Chronic Current Visit: No (5) Polysubstance abuse Problem details: History of polysubstance abuse Status: Chronic Current Visit: No (6) Bipolar disorder Status: Chronic Current Visit: Yes - Time Spent With Patient Total time spent is greater than 50% in coordination of care (as documented) at patient's floor/unit and/or counseling patient:
[2018-10-09] MEDS: [UNRECOGNIZED DRUG - OTHER] IV SCH (15:58)
[2018-10-09] MEDS: MAGNESIUM SULFATE IV SCH (15:58)
[2018-10-09] MEDS: CALCIUM GLUCONATE IV SCH (15:58)
[2018-10-09] MEDS: SODIUM CHLORIDE IV SCH (15:58)
[2018-10-09] MEDS: MVI IV SCH (15:58)
[2018-10-09] MEDS: FAT EMULSION 20% 250 ML IV SCH (15:59)
[2018-10-10] MEDS: 0.9 % SODIUM CHLORIDE 1,000 ML IV SCH ×5 (02:53→23:05)
[2018-10-10] MEDS: LORazepam 2 MG/ML VIAL IV PRN ×2 (04:14→11:31)
[2018-10-10] MEDS: INSULIN LISPRO 1 UNIT/0.01 ML UNIT SQ SCH ×4 (05:49→23:59)
[2018-10-10] MEDS: ERYTHROMYCIN BASE 250 MG CAPSULE PO SCH ×4 (05:49→23:57)
[2018-10-10 06:45] LABS: Basophils # (Auto) 0.1 K/mcL (0.0-0.3); Basophils % (Auto) 1.1 % (0.0-2.0); Eosinophils # (Auto) 1.3 K/mcL (0.0-0.7); Eosinophils % (Auto) 15.5 % (0.0-7.0); Granulocytes % (Auto) 57.6 % (38.0-78.0); Lymphocytes # (Auto) 1.6 K/mcL (1.5-4.8); Lymphocytes % (Auto) 19.3 % (15.5-49.0); Mean Cell Volume 94.4 fL (80.0-100.0); Mean Corpuscular HGB Conc 33.2 g/dL (31.0-36.0); Mean Corpuscular Hemoglobin 31.4 pg (26.0-34.0); Monocytes # (Auto) 0.5 K/mcL (0.1-0.9); Monocytes % (Auto) 6.5 % (1.0-12.0); Platelet Count 376 K/mcL (140-440); RBC 3.41 M/mcL (4.00-5.20); Red Cell Distribution Width 13.4 % (11.5-14.5)
[2018-10-10 07:11] LABS: ALT/SGPT 8 U/l (0-40); Alkaline Phosphatase 48 U/L (39-117); Bilirubin,Direct < 0.2 mg/dL (0.0-0.3); Blood Urea Nitrogen 16 mg/dl (6-20); Gamma Glutamyl Transpeptidase 5 U/L (5-36); Uric Acid 1.5 mg/dL (2.5-8.0)
[2018-10-10] MEDS: POLYETHYLENE GLYCOL 3350 17 GM PACKET PO SCH ×3 (07:51→20:58)
[2018-10-10] MEDS: ONDANSETRON 4 MG/2 ML VIAL IV PRN ×2 (07:51→16:00)
[2018-10-10] MEDS: PYRIDOSTIGMINE 60 MG TABLET PO SCH ×3 (07:52→20:57)
[2018-10-10] MEDS: 0.9 % SODIUM CHLORIDE 10 ML SYRINGE IV SCH ×2 (07:52→20:57)
[2018-10-10] MEDS: levETIRAcetam 500 MG in 0.9 % SODIUM CHLORIDE 100 ML IV SCH (09:23)
[2018-10-10] MEDS: NICOTINE 21 MG PATCH TOPICAL SCH (09:23)
[2018-10-10] MEDS: MEPERIDINE 50 MG TABLET PO PRN ×3 (10:10→20:57)
[2018-10-10] MEDS ORDERED: MAGNESIUM SULFATE IV SCH (14:00)
[2018-10-10] MEDS ORDERED: SODIUM CHLORIDE IV SCH (14:00)
[2018-10-10] MEDS ORDERED: CALCIUM GLUCONATE IV SCH (14:00)
[2018-10-10] MEDS ORDERED: [UNRECOGNIZED DRUG - OTHER] IV SCH (14:00)
[2018-10-10] MEDS ORDERED: MVI IV SCH (14:00)
[2018-10-10] MEDS: MAGNESIUM SULFATE IV SCH (14:52)
[2018-10-10] MEDS: [UNRECOGNIZED DRUG - OTHER] IV SCH (14:52)
[2018-10-10] MEDS: CALCIUM GLUCONATE IV SCH (14:52)
[2018-10-10] MEDS: SODIUM CHLORIDE IV SCH (14:52)
[2018-10-10] MEDS: MVI IV SCH (14:52)
[2018-10-10] MEDS: LORazepam 1 MG TABLET PO PRN (16:00)
--- NOTE | 2018-10-10 16:44 | General Surgery Progress Note ---
Subjective Patient reports: feels better, pain is less, tolerating a regular diet, flatus, bowel movement, afebrile Narrative: Note initiated : 10/10/18 at 4:42 pm Service Date, if different from initiated Date: [] Patient: Annette Cervantes a 48 y/o F admitted on 09/29/18 for Rt Hip Pain, Abd Pain. Chief Complaint: [Patient is feeling better. She is tolerating solid food though she states that she has pain when she eats. She has not had nausea or vomiting. She is having regular formed bowel movements and has not been incontinent.] Objective Temp Pulse Resp BP Pulse Ox 98.4 F 68 16 102/61 98 10/10/18 10:46 10/10/18 02:53 10/10/18 10:46 10/10/18 10:46 10/10/18 10:46 - Additional Data Intake & Output - Last 24 hours: Intake & Output 10/08/18 10/09/18 10/10/18 10/11/18 05:59 05:59 05:59 05:59 Intake Total 3931.0909 / 3931.0909 3280 / 3280 4050 / 4050 1460 / 1460 Output Total 1550 / 1550 Balance 2381.0909 / 2381.0909 3279 / 3279 4050 / 4050 1460 / 1460 Weight 114 lb 115 lb 115 lb 8 oz 115 lb 8 oz - General physical appearance moderate pain, cachectic, chronically ill - Eyes PERRL, normal ocular movement - ENT normal pinna, normal nares, normal mucosa, no hearing loss, no congestion - Neck no masses, no bruits, trachea midline, no lymphadenopathy, no venous distension - Respiratory normal expansion, normal respiratory effort, clear to auscultation - Cardiovascular Cardiovascular exam: Present: normal rate and rhythm, RRR, +S1, +S2. Absent: JVD, tachycardia - Abdomen tender (mild midabdominal tenderness; good active bowel sounds; mild abdominal distention) - Integumentary no rash, no growths, no abnormal pigmentation - Neurologic normal coordination, normal sensation - Musculoskeletal normal gait, normal posture - Psychiatric oriented to time, oriented to person, oriented to place, speech is normal, memory intact - Labs 10/10/18 04:00 10/10/18 04:00 Diabetes panel 10/10/18 Range/Units 04:00 Sodium 137 (133-145) mmol/L Potassium 4.4 (3.3-5.1) mmol/L Chloride 103 (96-108) mmol/L Carbon Dioxide 27 (22-30) mmol/L BUN 16 (6-20) mg/dl Creatinine 0.6 (0.6-1.1) mg/dl Glucose 77 (70-105) mg/dL Calcium 8.7 (8.6-10.4) mg/dl AST 12 (0-37) U/l ALT 8 (0-40) U/l Alkaline Phosphatase 48 (39-117) U/L Total Protein 6.1 (5.9-8.4) gm/dL Albumin 3.0 L (3.2-5.2) gm/dL Triglycerides 101 (<150) mg/dl Calcium panel 10/10/18 Range/Units 04:00 Calcium 8.7 (8.6-10.4) mg/dl Phosphorus 3.5 (2.7-4.5) mg/dL Albumin 3.0 L (3.2-5.2) gm/dL Pituitary panel 10/10/18 Range/Units 04:00 Sodium 137 (133-145) mmol/L Potassium 4.4 (3.3-5.1) mmol/L Chloride 103 (96-108) mmol/L Carbon Dioxide 27 (22-30) mmol/L BUN 16 (6-20) mg/dl Creatinine 0.6 (0.6-1.1) mg/dl Glucose 77 (70-105) mg/dL Calcium 8.7 (8.6-10.4) mg/dl Adrenal panel 10/10/18 Range/Units 04:00 Sodium 137 (133-145) mmol/L Potassium 4.4 (3.3-5.1) mmol/L Chloride 103 (96-108) mmol/L Carbon Dioxide 27 (22-30) mmol/L BUN 16 (6-20) mg/dl Creatinine 0.6 (0.6-1.1) mg/dl Glucose 77 (70-105) mg/dL Calcium 8.7 (8.6-10.4) mg/dl Total Bilirubin 0.2 (0.0-1.0) mg/dL AST 12 (0-37) U/l ALT 8 (0-40) U/l Alkaline Phosphatase 48 (39-117) U/L Total Protein 6.1 (5.9-8.4) gm/dL Albumin 3.0 L (3.2-5.2) gm/dL Assessment and Plan (1) Partial obstruction of small intestine Status: Resolved Assessment and plan: Mestinon 60 mg 3 times daily for 2 days then 120 mg 3 times daily MiraLAX twice daily Advanced to regular diet as tolerated Current Visit: Yes (2) Nondiabetic gastroparesis Status: Chronic Assessment and plan: Started on erythromycin 500 mg 4 times a day for peristaltic activity Current Visit: Yes (3) Constipation due to neurogenic bowel Status: Resolved Current Visit: Yes (4) GERD (gastroesophageal reflux disease) Status: Chronic Current Visit: No (5) Polysubstance abuse Problem details: History of polysubstance abuse Status: Chronic Current Visit: No (6) Bipolar disorder Status: Chronic Current Visit: Yes - Time Spent With Patient Total time spent is greater than 50% in coordination of care (as documented) at patient's floor/unit and/or counseling patient:
[2018-10-10] MEDS: levETIRAcetam 500 MG TABLET PO SCH (20:57)
[2018-10-11] MEDS: ERYTHROMYCIN BASE 250 MG CAPSULE PO SCH ×2 (05:33→12:00)
[2018-10-11] MEDS: 0.9 % SODIUM CHLORIDE 1,000 ML IV SCH (06:35)
[2018-10-11] MEDS: LORazepam 1 MG TABLET PO PRN ×2 (07:12→14:32)
[2018-10-11] MEDS: PYRIDOSTIGMINE 60 MG TABLET PO SCH ×2 (08:59→14:32)
[2018-10-11] MEDS: POLYETHYLENE GLYCOL 3350 17 GM PACKET PO SCH ×2 (09:00→10:03)
[2018-10-11] MEDS: 0.9 % SODIUM CHLORIDE 10 ML SYRINGE IV SCH (09:00)
[2018-10-11] MEDS: levETIRAcetam 500 MG TABLET PO SCH (09:00)
[2018-10-11] MEDS: NICOTINE 21 MG PATCH TOPICAL SCH (10:04)
[2018-10-11] MEDS: ONDANSETRON 4 MG/2 ML VIAL IV PRN (10:10)
[2018-10-11] MEDS: MEPERIDINE 50 MG TABLET PO PRN ×2 (10:10→14:32)
--- NOTE | 2018-10-11 13:28 | Discharge Summary ---
Providers - Providers Patient information: Note initiated : 10/11/18 at 1:22 pm Service Date, if different from initiated Date: [] Patient: Annette Cervantes a 48 y/o F admitted on 09/29/18 for Rt Hip Pain, Abd Pain. Chief Complaint: [] Date of admission: 09/29/18 Discharge date: 10/11/18 Attending physician: Tom Hansen Hospitalization Hospital course: 48-year-old female admitted with presumptive small bowel obstruction. She has a 10 day history of mid abdominal pain radiating through to her lower abdomen. She had nausea with vomiting 4 days prior to admission. She gives a history of a 10 pound weight loss in the past 2 weeks #25 pound weight loss since June 2018. The patient has a long history of chronic intestinal problems. She's been admitted multiple times to this hospital and the [facility] in [facility] small bowel obstruction. She has documented gastroparesis and intestinal pseudoobstruction. She's been tried on Reglan and erythromycin without improvement. She developed extrapyramidal side effects with Reglan. She had an EGD done in June 2018 which showed gastroparesis with gastric bezoar. During her last admission on 30 June small bowel follow-through was normal except for increased transit time. Patient at that time had severe constipation and started having evacuation after the small bowel follow- through. She has a history of methamphetamine use. The patient was admitted and started on nasogastric suction. She did not improve and her x-rays on the showed worsening evaluation of her proximal bowel with decompressed distal bowel. She was resistant to all therapy so exploratory laparotomy was done. Laparotomy showed markedly dilated stomach duodenum jejunum and proximal ileum with decompressed terminal ileum. There was no obstructing point and contrast and liquid could be pushed through the decompressed terminal ileum and into her large bowel. Postoperatively she was continued on nasogastric suction and monitored closely. She did not improve initially but over time she started having bowel movements however by 06 October she reached a steady state. Nasogastric tube was discontinued and she was started on clear liquid diet with MiraLAX at time. On the she was started on Mestinon 3 times a day. Shortly after institution of therapy she had 3 large bowel movements. She started evacuating her colon by october and she was started on a regular diet. 10 October she was having formed bowel movements and her abdomen was less distended.. She is felt to be stable at this time and she will be discharged home on Mestinon 60 mg 3 times daily. Discharge diagnosis: chronic colonic and intestinal pseudoobstruction Secondary discharge diagnosis: Chronic constipation due to neurogenic origin Bipolar disorder Seizure disorder Reason for admission: intestinal obstruction with nausea and vomiting Procedures: Exploratory laparoto and September 25 Pertinent studies/significant findings: CT of abdomen and pelvis with IV contrast Upper GI with small bowel follow Complications: None Exam Temp Pulse Resp BP Pulse Ox 97.1 F 75 16 115/74 99 10/11/18 11:59 10/11/18 11:59 10/11/18 11:59 10/11/18 11:59 10/11/18 11:59 - General physical appearance well developed, well nourished, no distress, moderate pain, cachectic, chronically ill - Eyes PERRL, normal ocular movement - ENT normal pinna, normal nares, normal mucosa, no hearing loss, no congestion - Head Head exam IM: Present: atraumatic, normal inspection, normocephalic - Neck no masses, no bruits, trachea midline, no lymphadenopathy, no venous distension - Cardiovascular Cardiovascular exam IM: Present: normal rate and rhythm, RRR, +S1, +S2. Absent : JVD, tachycardia - Respiratory normal expansion, normal respiratory effort, clear to auscultation - Abdomen Abdomen: Present: soft, tender (mild tenderness with decreased distention; hyperactive bowel sounds; healing surgical scar), bowel sounds Hernia: Present: none - Genitourinary Present: normal external genitalia - Rectum Rectum: Present: normal sphincter tone, no hemorrhoids, no tenderness, no masses , no bleeding - Integumentary Present: no rash, no growths, no abnormal pigmentation - Neurologic Present: normal coordination, normal sensation - Musculoskeletal Present: normal gait, normal posture - Psychiatric Present: oriented to time, oriented to person, oriented to place, speech is normal, memory intact Discharge Plan - Patient/Caregiver Discharge Instructions Activity: increase activity as tolerated Diet: Regular Diet Additional Instructions: Take MiraLAX 1 capful and 8 ounces liquid 2-3 times daily Prescriptions: clonazePAM [KlonoPIN] 1 mg PO TID #60 tab oxyCODONE HCL/ACETAMINOPHEN [Endocet 10-325 mg Tablet] 1 tab PO Q6H PRN #60 tab PRN Reason: Pain Pyridostigmine [Mestinon] 60 mg PO TID #90 tab - Follow up Plan Follow up with: Lucio Trujillo MD [Primary Care Provider] - Tom Hansen MD [Physician] - Disposition: Home, Self-Care Prognosis: Good Rehab Potential: Good I certify that the patient requires SNF services.: No Overall status at discharge: patient is not back to baseline Pending Studies Resuscitation Status Full Code Diet Regular Diet Start Sat Dec 1516 Acetaminophen (Tylenol) 650 mg PO Q6HP PRN PRN Reason: PAIN/FEVER > 101 Last Admin: 10/02/18 21:00 Dose: 650 mg Erythromycin (Erythromycin) 500 mg PO Q6 RADHA Last Admin: 10/11/18 12:00 Dose: 500 mg Admin: 10/11/18 05:33 Dose: 500 mg Admin: 10/10/18 23:57 Dose: 500 mg Admin: 10/10/18 17:09 Dose: 500 mg Admin: 10/10/18 11:23 Dose: 500 mg Admin: 10/10/18 05:49 Dose: 500 mg Admin: 10/09/18 23:37 Dose: 500 mg Admin: 10/09/18 15:59 Dose: 500 mg Admin: 10/09/18 12:17 Dose: 500 mg Admin: 10/09/18 05:37 Dose: 500 mg Admin: 10/09/18 00:40 Dose: 500 mg Admin: 10/08/18 17:27 Dose: 500 mg Admin: 10/08/18 12:53 Dose: 500 mg Admin: 10/08/18 06:12 Dose: 500 mg Admin: 10/08/18 00:00 Dose: 500 mg Admin: 10/07/18 17:39 Dose: 500 mg Admin: 10/07/18 12:00 Dose: 500 mg Admin: 10/07/18 05:49 Dose: 500 mg Admin: 10/06/18 23:51 Dose: 500 mg Admin: 10/06/18 17:31 Dose: 500 mg Admin: 10/06/18 12:43 Dose: 500 mg Admin: 10/06/18 05:53 Dose: 500 mg Admin: 10/05/18 23:15 Dose: 500 mg Admin: 10/05/18 17:51 Dose: 500 mg Admin: 10/05/18 12:17 Dose: 500 mg Admin: 10/05/18 08:13 Dose: 500 mg Admin: 10/05/18 05:30 Dose: Not Given Admin: 10/04/18 22:56 Dose: Not Given Admin: 10/04/18 16:49 Dose: Not Given Admin: 10/04/18 12:33 Dose: Not Given Admin: 10/04/18 06:20 Dose: 500 mg Admin: 10/03/18 23:24 Dose: 500 mg Admin: 10/03/18 18:27 Dose: 500 mg Admin: 10/03/18 12:47 Dose: 500 mg Admin: 10/03/18 05:48 Dose: 500 mg Admin: 10/02/18 23:17 Dose: 500 mg Admin: 10/02/18 17:32 Dose: 500 mg Admin: 10/02/18 11:47 Dose: 500 mg Admin: 10/02/18 06:12 Dose: 500 mg Admin: 10/01/18 23:27 Dose: 500 mg Admin: 10/01/18 17:10 Dose: 500 mg Admin: 10/01/18 10:59 Dose: 500 mg Heparin Sodium (Porcine) (Heparin Flush) 2 ml IV Q12 RADHA Last Admin: 10/11/18 09:00 Dose: 2 ml Admin: 10/10/18 20:58 Dose: 2 ml Admin: 10/10/18 07:52 Dose: Admin: 10/09/18 20:47 Dose: Not Given Admin: 10/09/18 09:24 Dose: 2 ml Admin: 10/09/18 00:40 Dose: 2 ml Admin: 10/08/18 09:12 Dose: 2 ml Admin: 10/07/18 20:40 Dose: 2 ml Admin: 10/07/18 08:35 Dose: Admin: 10/06/18 21:05 Dose: 2 ml Admin: 10/06/18 09:30 Dose: 2 ml Admin: 10/05/18 21:47 Dose: Not Given Admin: 10/05/18 09:12 Dose: 2 ml Admin: 10/04/18 20:14 Dose: 2 ml Sodium Chloride (Sodium Chloride 0.9%) 1,000 mls @ 125 mls/hr IV .Q8H RADHA Last Admin: 10/11/18 06:35 Dose: 125 mls/hr Infusion: 10/11/18 04:57 Dose: 125 mls/hr Admin: 10/10/18 23:05 Dose: Not Given Admin: 10/10/18 20:57 Dose: 125 mls/hr Infusion: 10/10/18 19:24 Dose: 125 mls/hr Admin: 10/10/18 19:06 Dose: Not Given Admin: 10/10/18 11:24 Dose: 125 mls/hr Infusion: 10/10/18 10:53 Dose: 125 mls/hr Admin: 10/10/18 02:53 Dose: 125 mls/hr Infusion: 10/10/18 01:49 Dose: 125 mls/hr Admin: 10/09/18 21:47 Dose: Not Given Admin: 10/09/18 17:49 Dose: 125 mls/hr Admin: 10/09/18 16:33 Dose: Not Given Infusion: 10/09/18 15:20 Dose: 125 mls/hr Admin: 10/09/18 07:20 Dose: 125 mls/hr Infusion: 10/09/18 06:10 Dose: 0 mls/hr Admin: 10/08/18 22:10 Dose: 125 mls/hr Infusion: 10/08/18 17:12 Dose: 125 mls/hr Admin: 10/08/18 15:15 Dose: Not Given Admin: 10/08/18 09:12 Dose: 125 mls/hr Infusion: 10/08/18 08:03 Dose: 125 mls/hr Admin: 10/08/18 00:03 Dose: 125 mls/hr Admin: 10/07/18 15:15 Dose: Not Given Admin: 10/07/18 08:13 Dose: Not Given Infusion: 10/07/18 07:58 Dose: 125 mls/hr Admin: 10/06/18 23:58 Dose: 125 mls/hr Infusion: 10/06/18 20:43 Dose: 125 mls/hr Admin: 10/06/18 15:13 Dose: Not Given Admin: 10/06/18 12:43 Dose: 125 mls/hr Infusion: 10/06/18 12:14 Dose: 125 mls/hr Admin: 10/06/18 09:30 Dose: Not Given Admin: 10/06/18 04:14 Dose: 125 mls/hr Infusion: 10/06/18 03:32 Dose: 125 mls/hr Admin: 10/05/18 23:08 Dose: Not Given Admin: 10/05/18 19:32 Dose: 125 mls/hr Infusion: 10/05/18 19:31 Dose: 125 mls/hr Admin: 10/05/18 15:29 Dose: Not Given Admin: 10/05/18 11:31 Dose: 125 mls/hr Admin: 10/05/18 09:13 Dose: Not Given Infusion: 10/05/18 08:57 Dose: 125 mls/hr Admin: 10/05/18 00:57 Dose: 125 mls/hr Infusion: 10/04/18 23:29 Dose: 125 mls/hr Admin: 10/04/18 22:36 Dose: Not Given Admin: 10/04/18 15:29 Dose: 125 mls/hr Infusion: 10/04/18 15:29 Dose: 125 mls/hr Admin: 10/04/18 15:11 Dose: Not Given Admin: 10/04/18 04:28 Dose: 125 mls/hr Infusion: 10/04/18 02:27 Dose: 125 mls/hr Admin: 10/03/18 18:27 Dose: 125 mls/hr Infusion: 10/03/18 18:20 Dose: 125 mls/hr Admin: 10/03/18 17:08 Dose: Not Given Admin: 10/03/18 03:02 Dose: 125 mls/hr Infusion: 10/03/18 02:45 Dose: 125 mls/hr Admin: 10/02/18 18:45 Dose: 125 mls/hr Infusion: 10/02/18 18:21 Dose: 125 mls/hr Admin: 10/02/18 10:21 Dose: 125 mls/hr Infusion: 10/02/18 10:20 Dose: 125 mls/hr Admin: 10/02/18 00:18 Dose: 125 mls/hr Infusion: 10/01/18 15:51 Dose: 125 mls/hr Admin: 10/01/18 13:40 Dose: Not Given Admin: 10/01/18 07:31 Dose: 125 mls/hr Infusion: 10/01/18 07:31 Dose: 125 mls/hr Admin: 09/30/18 23:51 Dose: 125 mls/hr Admin: 09/30/18 15:43 Dose: Levetiracetam (Keppra) 500 mg PO BID RADHA Last Admin: 10/11/18 09:00 Dose: 500 mg Admin: 10/10/18 20:57 Dose: 500 mg Lorazepam (Ativan) 1 mg PO Q6HP PRN PRN Reason: ANXIETY/SEDATION Last Admin: 10/11/18 07:12 Dose: 1 mg Admin: 10/10/18 16:00 Dose: 1 mg Meperidine HCl (Demerol) 50 mg PO Q4HP PRN PRN Reason: PAIN LEVEL 3-6 Last Admin: 10/11/18 10:10 Dose: 50 mg Admin: 10/10/18 20:57 Dose: 50 mg Admin: 10/10/18 14:08 Dose: 50 mg Admin: 10/10/18 10:10 Dose: 50 mg Admin: 10/09/18 21:58 Dose: 50 mg Admin: 10/09/18 05:37 Dose: 50 mg Admin: 10/09/18 01:57 Dose: 50 mg Morphine Sulfate (Morphine) 4 mg IV Q2HP PRN PRN Reason: PAIN LEVEL > 6 Last Admin: 10/09/18 09:17 Dose: 4 mg Admin: 10/08/18 19:09 Dose: 4 mg Admin: 10/08/18 12:53 Dose: 4 mg Admin: 10/08/18 06:32 Dose: 4 mg Admin: 10/07/18 20:39 Dose: 4 mg Admin: 10/07/18 17:37 Dose: 4 mg Admin: 10/07/18 14:13 Dose: 4 mg Admin: 10/07/18 10:57 Dose: 4 mg Admin: 10/07/18 05:53 Dose: 4 mg Admin: 10/06/18 19:56 Dose: 4 mg Admin: 10/06/18 17:30 Dose: 4 mg Admin: 10/06/18 09:30 Dose: 4 mg Admin: 10/06/18 06:02 Dose: 4 mg Admin: 10/06/18 01:05 Dose: 4 mg Admin: 10/05/18 21:06 Dose: 4 mg Admin: 10/05/18 17:51 Dose: 4 mg Admin: 10/05/18 15:14 Dose: 4 mg Admin: 10/05/18 13:14 Dose: 4 mg Admin: 10/05/18 10:43 Dose: 4 mg Admin: 10/05/18 08:11 Dose: 2 mg Admin: 10/04/18 14:50 Dose: 4 mg Admin: 10/04/18 09:59 Dose: 4 mg Admin: 10/04/18 03:56 Dose: 4 mg Admin: 10/03/18 23:30 Dose: 4 mg Admin: 10/03/18 19:29 Dose: 4 mg Admin: 10/03/18 17:31 Dose: 4 mg Admin: 10/03/18 09:23 Dose: 4 mg Admin: 10/03/18 05:48 Dose: 4 mg Admin: 10/02/18 23:18 Dose: 4 mg Admin: 10/02/18 20:18 Dose: 4 mg Admin: 10/02/18 17:42 Dose: 4 mg Admin: 10/02/18 12:07 Dose: 4 mg Admin: 10/02/18 08:49 Dose: 4 mg Admin: 10/02/18 01:34 Dose: 4 mg Admin: 10/01/18 21:19 Dose: 4 mg Admin: 10/01/18 18:04 Dose: 4 mg Admin: 10/01/18 14:58 Dose: 4 mg Admin: 10/01/18 12:19 Dose: 4 mg Admin: 10/01/18 09:47 Dose: 4 mg Admin: 10/01/18 07:32 Dose: 4 mg Admin: 09/30/18 22:58 Dose: 4 mg Admin: 09/30/18 17:29 Dose: 4 mg Admin: 09/30/18 15:41 Dose: 4 mg Nicotine (Nicoderm) 21 mg TOPICAL DAILY@1000 RADHA Last Admin: 10/11/18 10:04 Dose: 21 mg Admin: 10/10/18 09:23 Dose: 21 mg Admin: 10/09/18 09:17 Dose: 21 mg Admin: 10/08/18 09:12 Dose: 21 mg Admin: 10/07/18 10:48 Dose: 21 mg Ondansetron HCl (Zofran) 4 mg IV Q4HP PRN PRN Reason: Nausea And Vomiting Last Admin: 10/11/18 10:10 Dose: 4 mg Admin: 10/10/18 16:00 Dose: 4 mg Admin: 10/10/18 07:51 Dose: 4 mg Admin: 10/08/18 19:09 Dose: 4 mg Admin: 10/06/18 21:09 Dose: 4 mg Admin: 10/06/18 17:30 Dose: 4 mg Admin: 10/06/18 12:42 Dose: 4 mg Admin: 10/06/18 06:02 Dose: 4 mg Admin: 10/05/18 21:31 Dose: 4 mg Admin: 10/03/18 23:30 Dose: 4 mg Admin: 10/03/18 19:28 Dose: 4 mg Admin: 10/03/18 15:56 Dose: 4 mg Admin: 10/03/18 09:23 Dose: 4 mg Admin: 10/01/18 21:14 Dose: 4 mg Admin: 10/01/18 07:32 Dose: 4 mg Polyethylene Glycol (Miralax) 17 gm PO BID [facility] Last Admin: 10/11/18 09:00 Dose: 17 gm Admin: 10/10/18 20:58 Dose: 17 gm Admin: 10/10/18 07:51 Dose: 17 gm Admin: 10/09/18 20:48 Dose: 17 gm Admin: 10/09/18 09:16 Dose: 17 gm Admin: 10/09/18 00:41 Dose: 17 gm Admin: 10/08/18 09:12 Dose: 17 gm Admin: 10/07/18 20:39 Dose: 17 gm Admin: 10/07/18 08:36 Dose: 17 gm Admin: 10/06/18 21:09 Dose: 17 gm Admin: 10/06/18 09:31 Dose: 17 gm Admin: 10/05/18 21:06 Dose: 17 gm Admin: 10/05/18 09:12 Dose: 17 gm Admin: 10/04/18 20:10 Dose: Not Given Admin: 10/04/18 09:59 Dose: 17 gm Admin: 10/03/18 22:10 Dose: Not Given Admin: 10/03/18 09:15 Dose: 17 gm Admin: 10/02/18 20:17 Dose: 17 gm Admin: 10/02/18 10:22 Dose: 17 gm Admin: 10/01/18 21:12 Dose: 17 gm Polyethylene Glycol (Miralax) 17 gm PO DAILY [facility] Last Admin: 10/11/18 10:03 Dose: Not Given Admin: 10/10/18 07:52 Dose: 17 gm Admin: 10/09/18 09:17 Dose: 17 gm Admin: 10/08/18 09:13 Dose: 17 gm Admin: 10/07/18 08:36 Dose: Not Given Admin: 10/06/18 09:31 Dose: Not Given Pyridostigmine [place] (Mestinon) 60 mg PO TID [facility] Last Admin: 10/11/18 08:59 Dose: 60 mg Admin: 10/10/18 20:57 Dose: 60 mg Admin: 10/10/18 14:08 Dose: 60 mg Admin: 10/10/18 07:52 Dose: 60 mg Admin: 10/09/18 20:48 Dose: 60 mg Admin: 10/09/18 15:59 Dose: 60 mg Admin: 10/09/18 09:17 Dose: 60 mg Admin: 10/09/18 00:40 Dose: 60 mg Admin: 10/08/18 17:06 Dose: 60 mg Admin: 10/08/18 09:12 Dose: 60 mg Admin: 10/07/18 20:40 Dose: 60 mg Admin: 10/07/18 16:17 Dose: 60 mg Sodium Chloride (Saline Flush) 10 ml IV Q12 [facility] Last Admin: 10/11/18 09:00 Dose: 10 ml Admin: 10/10/18 20:57 Dose: 10 ml Admin: 10/10/18 07:52 Dose: Not Given Admin: 10/09/18 20:48 Dose: Not Given Admin: 10/09/18 09:27 Dose: 10 ml Admin: 10/09/18 05:37 Dose: 10 ml Admin: 10/09/18 00:41 Dose: 10 ml Admin: 10/08/18 09:13 Dose: 10 ml Admin: 10/08/18 04:41 Dose: 10 ml Admin: 10/07/18 20:40 Dose: 10 ml Admin: 10/07/18 08:36 Dose: Admin: 10/06/18 21:21 Dose: 10 ml Admin: 10/06/18 09:31 Dose: 10 ml Admin: 10/05/18 21:09 Dose: 10 ml Admin: 10/05/18 09:13 Dose: 10 ml Admin: 10/04/18 20:14 Dose: 10 ml Shift Summary 10/11/18 04:11 Shift Summary by Mora Perrin Pt had uneventful night. Loose stool x2 this shift. Medicated for c/o pain x1 thus far. No request for Ativan as of yet. TPN d/c. Please have MD d/c accu checks and any labs related to TPN. Pt has been up at jo in room. Midline abd incision with Tegaderm in place sm amount of old drainage. Will update with verbal report. Initialized on 10/11/18 04:11 - END OF NOTE
== END 2018-10-11 15:04 | disposition home or self-care (01) | DRG 357 ==
LOC: ED 05:08 → MEDSUR 09:21
PROVIDERS: ADMIT Family Medicine Adult Medicine; ATTEND Family Medicine Adult Medicine
CPT/HCPCS: 49000; 99231; A4221; C1751; J0131; J0610; J1170; J1953; J1956; J2001; J2060; J2212; J2250; J2270; J2370; J2405; J2710; J3010; J3475; J3480; J7030; J7050; J7060; J7120; Q9967

== ENCOUNTER 2023-06-27 09:48 | Inpatient (IN) ==
[2023-06-27] MEDS ORDERED: 0.9 % SODIUM CHLORIDE 1,000 ML IV ONE (10:21)
[2023-06-27] MEDS ORDERED: ONDANSETRON 4 MG/2 ML VIAL IV ONE ×2 (10:53→13:11)
[2023-06-27] MEDS ORDERED: ONDANSETRON 4 MG/2 ML VIAL ONE (10:54)
[2023-06-27 11:40] LABS: Basophils # (Auto) 0.06 K/mcL (0.00-0.30); Basophils % (Auto) 0.7 % (0.0-2.0); Eosinophils # (Auto) 0.09 K/mcL (0.00-0.70); Hemoglobin 14.3 g/dL (11.2-15.7); Lymphocytes # (Auto) 0.89 K/mcL (1.50-4.80); Lymphocytes % (Auto) 9.7 % (15.5-49.0); Mean Cell Volume 94.5 fL (80.0-100.0); Mean Corpuscular HGB Conc 31.8 g/dL (31.0-36.0); Mean Platelet Volume 9.7 fL (8.8-12.5); Monocytes # (Auto) 0.74 K/mcL (0.10-0.90); Monocytes % (Auto) 8.1 % (1.0-12.0); Neutrophils % (Auto) 80.2 % (38.0-78.0); Platelet Count 312 K/mcL (140-440); RBC 4.76 M/mcL (3.59-5.38); Red Cell Distribution Width 14.4 % (11.5-14.5); WBC 9.1 K/mcL (4.5-11.0)
[2023-06-27 12:19] LABS: POC Calcium, Ionized 0.96 (1.16-1.32); POC Creatinine 0.8 (0.6-1.2); POC Potassium 6.9 (3.3-5.1)
[2023-06-27] MEDS ORDERED: METOCLOPRAMIDE 10 MG/2 ML VIAL IV ONE (12:39)
[2023-06-27] MEDS ORDERED: HYDROmorphone 0.5 MG/0.5 ML SYRINGE IV ONE (13:46)
[2023-06-27 13:53] LABS: ALT/SGPT 12 U/L (<40); AST/SGOT 15 U/L (<32); Albumin 4.4 gm/dL (3.2-5.2); Albumin/Globulin Ratio 0.9 (1.0-2.3); Alkaline Phosphatase 114 U/L (39-117); Blood Urea Nitrogen 16 mg/dL (6-20); Calcium 9.7 mg/dL (8.6-10.4); Carbon Dioxide 28 mmol/L (22-30); Chloride 97 mmol/L (96-108); Globulin 4.9 gm/dL (2.2-3.7); Glomerular Filtration Rate 64; Glucose 115 mg/dL (70-105)
[2023-06-27] MEDS ORDERED: 0.9 % SODIUM CHLORIDE 1,000 ML IV SCH (16:30)
[2023-06-27 17:29] LABS: Appearance,Urine HAZY (Clear); Bilirubin,Urine Negative (Negative); Color,Urine YELLOW; Culture Indicated,Urine yes; Glucose,Urine (UA) Negative (Negative); Ketones,Urine Negative (Negative); Leukocyte Esterase,Urine 75 /uL (Negative); Mucus,Urine FEW /hpf; Nitrate,Urine POS (Negative); Protein,Urine Negative (Negative); Specific Gravity,Urine 1.038 (1.000-1.035); Urine Blood Negative (Negative); Urine Budding Yeast FEW /hpf; Urine Hyaline Cast 9 /lph (0-2); Urine RBC 2 /hpf (0-3); Urine Squamous Epithelial Cell 1 /hpf (0-4); Urine Transitional Epi Cells < 1 /hpf (0-2); Urine WBC 32 /hpf (0-4); Urobilinogen,Urine Negative
[2023-06-27] MEDS ORDERED: PANTOPRAZOLE 40 MG VIAL IV ONE (17:42)
[2023-06-27] MEDS ORDERED: MEROPENEM 1 GM in 0.9 % SODIUM CHLORIDE 50 ML IV SCH (17:45)
[2023-06-27 17:47] LABS: Amphetamine Screen,Urine Suspect positive; Barbiturate Screen,Urine None detected; Benzodiazepines Screen,Urine None detected; Cannabinoid Screen,Urine None detected; Cocaine Screen,Urine None detected; Opiate Screen,Urine None detected; Oxycodone, Urine Screen None detected; Phencyclidine Screen,Urine None detected
[2023-06-27] MEDS: DEXTROSE 5%-LR 1,000 ML IV SCH (20:59)
[2023-06-27] MEDS: ONDANSETRON 4 MG/2 ML VIAL IV PRN (23:26)
[2023-06-27] MEDS: HYDROmorphone 0.5 MG/0.5 ML SYRINGE IV PRN (23:27)
[2023-06-28] MEDS: DEXTROSE 5%-LR 1,000 ML IV SCH ×4 (03:40→19:38)
[2023-06-28] MEDS: MEROPENEM 1 GM in 0.9 % SODIUM CHLORIDE 50 ML IV SCH ×2 (07:36→19:38)
[2023-06-28] MEDS: HYDROmorphone 0.5 MG/0.5 ML SYRINGE IV PRN ×4 (08:43→19:38)
[2023-06-28] MEDS: ONDANSETRON 4 MG/2 ML VIAL IV PRN ×3 (08:43→21:08)
[2023-06-28 10:10] LABS: Basophils # (Auto) 0.03 K/mcL (0.00-0.30); Basophils % (Auto) 0.7 % (0.0-2.0); Eosinophils # (Auto) 0.28 K/mcL (0.00-0.70); Eosinophils % (Auto) 6.7 % (0.0-7.0); Hematocrit 32.4 % (34.1-44.9); Hemoglobin 10.4 g/dL (11.2-15.7); Lymphocytes % (Auto) 26.4 % (15.5-49.0); Mean Cell Volume 94.2 fL (80.0-100.0); Mean Corpuscular HGB Conc 32.1 g/dL (31.0-36.0); Mean Platelet Volume 9.7 fL (8.8-12.5); Monocytes # (Auto) 0.54 K/mcL (0.10-0.90); Neutrophils % (Auto) 53.2 % (38.0-78.0); Platelet Count 264 K/mcL (140-440); RBC 3.44 M/mcL (3.59-5.38); Red Cell Distribution Width 14.6 % (11.5-14.5); WBC 4.2 K/mcL (4.5-11.0)
[2023-06-28 11:00] LABS: ALT/SGPT 7 U/L (<40); AST/SGOT 9 U/L (<32); Albumin 2.9 gm/dL (3.2-5.2); Albumin/Globulin Ratio 0.9 (1.0-2.3); Alkaline Phosphatase 73 U/L (39-117); Bilirubin,Total 0.8 mg/dL (0.1-1.0); Blood Urea Nitrogen 17 mg/dL (6-20); Calcium 8.4 mg/dL (8.6-10.4); Carbon Dioxide 29 mmol/L (22-30); Chloride 107 mmol/L (96-108); Globulin 3.3 gm/dL (2.2-3.7); Glomerular Filtration Rate 83; Glucose 98 mg/dL (70-105)
[2023-06-29] MEDS: HYDROmorphone 0.5 MG/0.5 ML SYRINGE IV PRN ×4 (02:15→19:01)
[2023-06-29] MEDS: DEXTROSE 5%-LR 1,000 ML IV SCH ×4 (04:26→22:26)
[2023-06-29 06:38] LABS: Basophils # (Auto) 0.03 K/mcL (0.00-0.30); Basophils % (Auto) 0.8 % (0.0-2.0); Eosinophils # (Auto) 0.31 K/mcL (0.00-0.70); Eosinophils % (Auto) 7.8 % (0.0-7.0); Hemoglobin 9.8 g/dL (11.2-15.7); Lymphocytes # (Auto) 1.43 K/mcL (1.50-4.80); Mean Cell Volume 94.8 fL (80.0-100.0); Mean Corpuscular HGB Conc 31.6 g/dL (31.0-36.0); Mean Platelet Volume 9.6 fL (8.8-12.5); Monocytes # (Auto) 0.46 K/mcL (0.10-0.90); Monocytes % (Auto) 11.6 % (1.0-12.0); Neutrophils % (Auto) 43.5 % (38.0-78.0); Platelet Count 252 K/mcL (140-440); RBC 3.27 M/mcL (3.59-5.38)
[2023-06-29] MEDS: MEROPENEM 1 GM in 0.9 % SODIUM CHLORIDE 50 ML IV SCH ×2 (06:55→19:02)
[2023-06-29 07:27] LABS: ALT/SGPT 6 U/L (<40); AST/SGOT 8 U/L (<32); Albumin 2.9 gm/dL (3.2-5.2); Albumin/Globulin Ratio 0.9 (1.0-2.3); Alkaline Phosphatase 65 U/L (39-117); Bilirubin,Total 0.5 mg/dL (0.1-1.0); Blood Urea Nitrogen 10 mg/dL (6-20); Calcium 8.5 mg/dL (8.6-10.4); Carbon Dioxide 28 mmol/L (22-30); Chloride 105 mmol/L (96-108); Globulin 3.1 gm/dL (2.2-3.7); Glomerular Filtration Rate 98; Glucose 99 mg/dL (70-105)
[2023-06-29] MEDS ORDERED: POTASSIUM CHLORIDE 40 MEQ in DEXTROSE 5% IN WATER 500 ML IV ONE (09:13)
[2023-06-29] MEDS: PANTOPRAZOLE 40 MG VIAL IV SCH (10:40)
[2023-06-29] MEDS: NICOTINE 14 MG PATCH TOPICAL SCH (10:41)
[2023-06-29] MEDS: ONDANSETRON 4 MG/2 ML VIAL IV PRN (14:05)
[2023-06-30] MEDS: HYDROmorphone 0.5 MG/0.5 ML SYRINGE IV PRN ×4 (01:26→23:20)
[2023-06-30] MEDS: ONDANSETRON 4 MG/2 ML VIAL IV PRN ×2 (01:26→23:20)
[2023-06-30] MEDS: DEXTROSE 5%-LR 1,000 ML IV SCH ×3 (03:03→18:27)
[2023-06-30] MEDS: MEROPENEM 1 GM in 0.9 % SODIUM CHLORIDE 50 ML IV SCH ×2 (06:41→19:00)
[2023-06-30 07:15] LABS: ALT/SGPT 6 U/L (<40); AST/SGOT 11 U/L (<32); Albumin 3.1 gm/dL (3.2-5.2); Albumin/Globulin Ratio 0.9 (1.0-2.3); Alkaline Phosphatase 70 U/L (39-117); Bilirubin,Total 0.4 mg/dL (0.1-1.0); Blood Urea Nitrogen 7 mg/dL (6-20); Calcium 8.8 mg/dL (8.6-10.4); Carbon Dioxide 28 mmol/L (22-30); Chloride 98 mmol/L (96-108); Globulin 3.4 gm/dL (2.2-3.7); Glomerular Filtration Rate 98; Glucose 113 mg/dL (70-105)
[2023-06-30 07:46] LABS: Basophils # (Auto) 0.02 K/mcL (0.00-0.30); Basophils % (Auto) 0.5 % (0.0-2.0); Eosinophils # (Auto) 0.19 K/mcL (0.00-0.70); Eosinophils % (Auto) 4.6 % (0.0-7.0); Hematocrit 36.1 % (34.1-44.9); Hemoglobin 12.3 g/dL (11.2-15.7); Lymphocytes % (Auto) 36.2 % (15.5-49.0); Mean Corpuscular HGB Conc 34.1 g/dL (31.0-36.0); Mean Platelet Volume 11.1 fL (8.8-12.5); Monocytes # (Auto) 0.36 K/mcL (0.10-0.90); Monocytes % (Auto) 8.7 % (1.0-12.0); Neutrophils % (Auto) 49.5 % (38.0-78.0); Platelet Count 169 K/mcL (140-440); RBC 4.01 M/mcL (3.59-5.38); Red Cell Distribution Width 13.2 % (11.5-14.5); WBC 4.1 K/mcL (4.5-11.0)
[2023-06-30] MEDS: NICOTINE 14 MG PATCH TOPICAL SCH (08:49)
[2023-06-30] MEDS: PANTOPRAZOLE 40 MG VIAL IV SCH (08:49)
[2023-06-30] MEDS: LORazepam 2 MG/ML VIAL IV PRN ×2 (08:49→18:59)
[2023-07-01] MEDS: DEXTROSE 5%-LR 1,000 ML IV SCH ×4 (03:13→23:10)
[2023-07-01] MEDS: MEROPENEM 1 GM in 0.9 % SODIUM CHLORIDE 50 ML IV SCH ×2 (07:20→18:58)
[2023-07-01] MEDS: NICOTINE 14 MG PATCH TOPICAL SCH (08:14)
[2023-07-01] MEDS: PANTOPRAZOLE 40 MG VIAL IV SCH (08:14)
[2023-07-01] MEDS: LORazepam 2 MG/ML VIAL IV PRN ×2 (08:21→14:34)
[2023-07-01] MEDS: ONDANSETRON 4 MG/2 ML VIAL IV PRN ×3 (09:05→23:10)
[2023-07-01] MEDS: HYDROmorphone 0.5 MG/0.5 ML SYRINGE IV PRN ×2 (09:05→23:09)
[2023-07-01] MEDS ORDERED: DIATRIZOATE MEGLU/DIATRIZO SOD 120 ML BOTTLE PO ONE (13:02)
[2023-07-02] MEDS: DEXTROSE 5%-LR 1,000 ML IV SCH ×2 (05:48→16:02)
[2023-07-02] MEDS: MEROPENEM 1 GM in 0.9 % SODIUM CHLORIDE 50 ML IV SCH (06:51)
[2023-07-02] MEDS: ONDANSETRON 4 MG/2 ML VIAL IV PRN (08:33)
[2023-07-02] MEDS: LORazepam 2 MG/ML VIAL IV PRN (08:55)
[2023-07-02] MEDS: NICOTINE 14 MG PATCH TOPICAL SCH (08:55)
[2023-07-02] MEDS: PANTOPRAZOLE 40 MG VIAL IV SCH (08:55)
[2023-07-02] MEDS ORDERED: ONDANSETRON 4 MG ODT TABLET SL PRN (11:28)
[2023-07-02] MEDS ORDERED: HYDROmorphone 2 MG TABLET PO PRN (11:29)
[2023-07-02] MEDS ORDERED: LORazepam 0.5 MG TABLET PO PRN (11:33)
[2023-07-02 11:55] VITALS: TEMP 98.2; O2SAT 98
[2023-07-02 13:11] LABS: Phosphorous 2.5 mg/dL (2.5-4.5)
[2023-07-02 13:25] LABS: ALT/SGPT 6 U/L (<40); AST/SGOT 10 U/L (<32); Albumin 3.4 gm/dL (3.2-5.2); Albumin/Globulin Ratio 0.9 (1.0-2.3); Alkaline Phosphatase 68 U/L (39-117); Bilirubin,Total 0.4 mg/dL (0.1-1.0); Blood Urea Nitrogen 5 mg/dL (6-20); Carbon Dioxide 31 mmol/L (22-30); Chloride 100 mmol/L (96-108); Globulin 3.7 gm/dL (2.2-3.7); Glomerular Filtration Rate 98; Glucose 78 mg/dL (70-105)
[2023-07-02 13:32] LABS: Basophils # (Auto) 0.05 K/mcL (0.00-0.30); Basophils % (Auto) 1.1 % (0.0-2.0); Eosinophils # (Auto) 0.14 K/mcL (0.00-0.70); Hematocrit 35.6 % (34.1-44.9); Hemoglobin 11.9 g/dL (11.2-15.7); Lymphocytes # (Auto) 1.94 K/mcL (1.50-4.80); Lymphocytes % (Auto) 41.9 % (15.5-49.0); Mean Cell Volume 89.7 fL (80.0-100.0); Mean Corpuscular HGB Conc 33.4 g/dL (31.0-36.0); Mean Platelet Volume 9.7 fL (8.8-12.5); Monocytes # (Auto) 0.34 K/mcL (0.10-0.90); Monocytes % (Auto) 7.3 % (1.0-12.0); Neutrophils % (Auto) 44.8 % (38.0-78.0); Platelet Count 313 K/mcL (140-440); RBC 3.97 M/mcL (3.59-5.38); Red Cell Distribution Width 12.9 % (11.5-14.5); WBC 4.6 K/mcL (4.5-11.0)
[2023-07-03] MEDS ORDERED: PANTOPRAZOLE 40 MG TABLET PO SCH (07:30)
== END 2023-07-02 17:12 | disposition home or self-care (01) | DRG 388 ==
LOC: ED 09:48 → MEDSUR 19:16
PROVIDERS: ADMIT Surgery Surgical Critical Care; ATTEND Surgery Surgical Critical Care

== ENCOUNTER 2023-09-01 01:56 | Inpatient (IN) ==
[2023-09-01] MEDS ORDERED: IOPAMIDOL 100 ML BOTTLE IV ONE (01:57)
[2023-09-01] MEDS ORDERED: ONDANSETRON 4 MG/2 ML VIAL IV ONE ×2 (02:10→04:18)
[2023-09-01] MEDS ORDERED: 0.9 % SODIUM CHLORIDE 1,000 ML IV ONE (02:10)
[2023-09-01] MEDS ORDERED: fentaNYL 100 MCG/2 ML VIAL IV ONE ×2 (02:10→04:18)
[2023-09-01 03:39] LABS: Basophils # (Auto) 0.06 K/mcL (0.00-0.30); Basophils % (Auto) 0.6 % (0.0-2.0); Eosinophils # (Auto) 0.05 K/mcL (0.00-0.70); Eosinophils % (Auto) 0.5 % (0.0-7.0); Lymphocytes # (Auto) 1.09 K/mcL (1.50-4.80); Lymphocytes % (Auto) 10.5 % (15.5-49.0); Mean Cell Volume 89.7 fL (80.0-100.0); Mean Corpuscular HGB Conc 33.3 g/dL (31.0-36.0); Mean Platelet Volume 8.7 fL (8.8-12.5); Monocytes # (Auto) 0.99 K/mcL (0.10-0.90); Monocytes % (Auto) 9.5 % (1.0-12.0); Neutrophils % (Auto) 78.7 % (38.0-78.0); Platelet Count 417 K/mcL (140-440); RBC 5.35 M/mcL (3.59-5.38); Red Cell Distribution Width 12.4 % (11.5-14.5); WBC 10.4 K/mcL (4.5-11.0)
[2023-09-01] MEDS ORDERED: BENZOCAINE ONE 20% 1 SPRAY TOPICAL (03:56)
[2023-09-01 03:57] LABS: HCG,Serum Negative
[2023-09-01] MEDS: LACTATED RINGERS 1,000 ML IV SCH ×6 (04:34→21:51)
[2023-09-01] MEDS ORDERED: NALOXONE HCL 0.4 MG/ML VIAL IV PRN (06:41)
[2023-09-01] MEDS ORDERED: morphine 2 MG/ML VIAL IV ONE (07:34)
[2023-09-01] MEDS: morphine 2 MG/ML VIAL IV PRN ×3 (09:35→13:23)
[2023-09-01] MEDS ORDERED: METOCLOPRAMIDE 10 MG/2 ML VIAL IV SCH (12:00)
[2023-09-01] MEDS: LORazepam 2 MG/ML VIAL IV SCH ×2 (13:23→18:08)
[2023-09-01] MEDS: METHYLNALTREXONE BROMIDE 12 MG/0.6 ML SYRINGE SQ SCH (13:28)
[2023-09-01] MEDS: PYRIDOSTIGMINE BROMIDE 10 MG/2 ML AMPUL IV SCH ×2 (13:28→18:09)
[2023-09-01 18:28] LABS: Amphetamine Screen,Urine Suspect positive; Barbiturate Screen,Urine None detected; Benzodiazepines Screen,Urine Suspect positive; Cannabinoid Screen,Urine None detected; Cocaine Screen,Urine None detected; Opiate Screen,Urine Suspect Positive; Oxycodone, Urine Screen None detected; Phencyclidine Screen,Urine None detected
[2023-09-02 00:06] LABS: Appearance,Urine CLEAR (Clear); Bilirubin,Urine Negative (Negative); Color,Urine YELLOW; Culture Indicated,Urine No; Glucose,Urine (UA) Negative (Negative); Ketones,Urine 20 mg/dL (Negative); Leukocyte Esterase,Urine Negative /uL (Negative); Nitrate,Urine Negative (Negative); Protein,Urine Negative (Negative); Urine Blood Negative (Negative); Urobilinogen,Urine Negative
[2023-09-02] MEDS: PYRIDOSTIGMINE BROMIDE 10 MG/2 ML AMPUL IV SCH ×6 (00:31→23:28)
[2023-09-02] MEDS: LORazepam 2 MG/ML VIAL IV SCH ×7 (00:36→23:19)
[2023-09-02] MEDS: LACTATED RINGERS 1,000 ML IV SCH ×4 (01:40→23:26)
[2023-09-02] MEDS: morphine 2 MG/ML VIAL IV PRN ×2 (07:29→14:34)
[2023-09-02] MEDS: NICOTINE 7 MG PATCH TOPICAL SCH (08:02)
[2023-09-02] MEDS: METHYLNALTREXONE BROMIDE 12 MG/0.6 ML SYRINGE SQ SCH (11:15)
[2023-09-02] MEDS: ONDANSETRON 4 MG/2 ML VIAL IV PRN ×2 (13:39→17:41)
[2023-09-03] MEDS: LORazepam 2 MG/ML VIAL IV SCH ×4 (05:06→23:43)
[2023-09-03] MEDS: PYRIDOSTIGMINE BROMIDE 10 MG/2 ML AMPUL IV SCH (05:06)
[2023-09-03] MEDS: LACTATED RINGERS 1,000 ML IV SCH ×3 (05:56→20:25)
[2023-09-03] MEDS: NICOTINE 7 MG PATCH TOPICAL SCH (09:07)
[2023-09-03] MEDS ORDERED: MAGNESIUM HYDROXIDE 30 ML ORAL.SUSP ONE (09:59)
[2023-09-03] MEDS: MAGNESIUM HYDROXIDE 30 ML ORAL.SUSP PO SCH ×4 (10:03→21:42)
[2023-09-03] MEDS ORDERED: traZODone HCL 50 MG TABLET PO PRN (10:48)
[2023-09-03] MEDS ORDERED: clonazePAM 1 MG TABLET PO PRN (10:48)
[2023-09-03] MEDS ORDERED: METHOCARBAMOL 750 MG TABLET PO PRN (10:48)
[2023-09-03] MEDS: METHYLNALTREXONE BROMIDE 12 MG/0.6 ML SYRINGE SQ SCH (11:52)
[2023-09-03] MEDS: traMADol 50 MG TABLET PO PRN ×2 (13:41→20:36)
[2023-09-03] MEDS: PYRIDOSTIGMINE 60 MG TABLET PO SCH ×2 (15:57→20:36)
[2023-09-03] MEDS: MIRTAZAPINE 15 MG TABLET PO SCH (20:35)
[2023-09-03] MEDS: OLANZapine 5 MG TABLET PO SCH (20:35)
[2023-09-03] MEDS: OMEPRAZOLE 20 MG CAPSULE PO SCH (20:36)
[2023-09-03] MEDS: carBAMazepine 100 MG TAB.ER.12H PO SCH (21:15)
[2023-09-04] MEDS: LACTATED RINGERS 1,000 ML IV SCH ×4 (02:34→21:48)
[2023-09-04] MEDS: LORazepam 2 MG/ML VIAL IV SCH ×3 (05:32→17:45)
[2023-09-04] MEDS: NICOTINE 7 MG PATCH TOPICAL SCH (08:42)
[2023-09-04] MEDS: CITALOPRAM 20 MG TABLET PO SCH (08:42)
[2023-09-04] MEDS: OMEPRAZOLE 20 MG CAPSULE PO SCH ×2 (08:42→20:37)
[2023-09-04] MEDS: PYRIDOSTIGMINE 60 MG TABLET PO SCH ×3 (08:42→20:36)
[2023-09-04] MEDS: carBAMazepine 100 MG TAB.ER.12H PO SCH ×2 (08:48→20:33)
[2023-09-04] MEDS: traMADol 50 MG TABLET PO PRN (18:14)
[2023-09-04] MEDS: MIRTAZAPINE 15 MG TABLET PO SCH (20:37)
[2023-09-04] MEDS: OLANZapine 5 MG TABLET PO SCH (20:37)
[2023-09-05] MEDS: LORazepam 2 MG/ML VIAL IV SCH ×5 (00:05→23:43)
[2023-09-05] MEDS: traMADol 50 MG TABLET PO PRN ×2 (01:07→19:36)
[2023-09-05] MEDS: LACTATED RINGERS 1,000 ML IV SCH ×3 (04:25→17:58)
[2023-09-05 07:57] LABS: Basophils # (Auto) 0.02 K/mcL (0.00-0.30); Basophils % (Auto) 0.4 % (0.0-2.0); Eosinophils # (Auto) 0.14 K/mcL (0.00-0.70); Eosinophils % (Auto) 3.1 % (0.0-7.0); Hematocrit 39.8 % (34.1-44.9); Hemoglobin 13.2 g/dL (11.2-15.7); Lymphocytes % (Auto) 40.4 % (15.5-49.0); Mean Cell Volume 90.2 fL (80.0-100.0); Mean Corpuscular HGB Conc 33.2 g/dL (31.0-36.0); Mean Platelet Volume 10.7 fL (8.8-12.5); Monocytes # (Auto) 0.39 K/mcL (0.10-0.90); Monocytes % (Auto) 8.7 % (1.0-12.0); Platelet Count 318 K/mcL (140-440); RBC 4.41 M/mcL (3.59-5.38); Red Cell Distribution Width 12.3 % (11.5-14.5); WBC 4.5 K/mcL (4.5-11.0)
[2023-09-05] MEDS: NICOTINE 7 MG PATCH TOPICAL SCH (08:25)
[2023-09-05] MEDS: OMEPRAZOLE 20 MG CAPSULE PO SCH ×2 (08:25→21:03)
[2023-09-05] MEDS: PYRIDOSTIGMINE 60 MG TABLET PO SCH ×4 (08:26→21:03)
[2023-09-05] MEDS: carBAMazepine 100 MG TAB.ER.12H PO SCH ×2 (08:26→21:04)
[2023-09-05] MEDS: CITALOPRAM 20 MG TABLET PO SCH (08:26)
[2023-09-05 09:36] LABS: ALT/SGPT 8 U/L (<40); AST/SGOT 10 U/L (<32); Albumin 3.5 gm/dL (3.2-5.2); Albumin/Globulin Ratio 1.1 (1.0-2.3); Alkaline Phosphatase 55 U/L (39-117); Bilirubin,Direct < 0.2 mg/dL (0-0.3); Bilirubin,Total 0.4 mg/dL (0.1-1.0); Blood Urea Nitrogen 15 mg/dL (6-20); Calcium 9.6 mg/dL (8.6-10.4); Carbon Dioxide 22 mmol/L (22-30); Chloride 108 mmol/L (96-108); Globulin 3.3 gm/dL (2.2-3.7); Glomerular Filtration Rate 98; Glucose 88 mg/dL (70-105); Lactate Dehydrogenase 153 U/L (135-225); Phosphorous 2.5 mg/dL (2.5-4.5); Triglycerides 116 mg/dL (<150); Uric Acid 2.6 mg/dL (2.5-8.0)
[2023-09-05] MEDS: POLYETHYLENE GLYCOL 3350 17 GM PACKET PO SCH ×2 (14:11→21:03)
[2023-09-05] MEDS: OLANZapine 5 MG TABLET PO SCH (21:03)
[2023-09-05] MEDS: MIRTAZAPINE 15 MG TABLET PO SCH (21:03)
[2023-09-06] MEDS: LACTATED RINGERS 1,000 ML IV SCH ×2 (00:37→08:57)
[2023-09-06] MEDS: LORazepam 2 MG/ML VIAL IV SCH ×2 (05:28→12:03)
[2023-09-06] MEDS: CITALOPRAM 20 MG TABLET PO SCH (08:53)
[2023-09-06] MEDS: OMEPRAZOLE 20 MG CAPSULE PO SCH (08:54)
[2023-09-06] MEDS: NICOTINE 7 MG PATCH TOPICAL SCH (08:54)
[2023-09-06] MEDS: POLYETHYLENE GLYCOL 3350 17 GM PACKET PO SCH (08:54)
[2023-09-06] MEDS: PYRIDOSTIGMINE 60 MG TABLET PO SCH ×2 (08:54→13:13)
[2023-09-06] MEDS: carBAMazepine 100 MG TAB.ER.12H PO SCH (09:50)
[2023-09-10 16:04] LABS: Opiate Confirmation Positive
== END 2023-09-06 16:20 | disposition home or self-care (01) | DRG 389 ==
LOC: ED 01:56 → INTOOBSV 07:51 → MEDSUR 07:51
PROVIDERS: ADMIT Family Medicine Adult Medicine; ATTEND Family Medicine Adult Medicine

== ENCOUNTER 2024-01-06 04:06 | Inpatient (IN) ==
[2024-01-06] MEDS: 0.9 % SODIUM CHLORIDE 1,000 ML IV ONE ×2 (05:00→05:48)
[2024-01-06] MEDS: DICYCLOMINE 20 MG/2 ML VIAL IM ONE (05:01)
[2024-01-06] MEDS: ONDANSETRON 4 MG/2 ML VIAL IV ONE (05:01)
[2024-01-06 05:10] LABS: Basophils # (Auto) 0.03 K/mcL (0.00-0.30); Basophils % (Auto) 0.3 % (0.0-2.0); Hematocrit 50.5 % (34.1-44.9); Hemoglobin 16.5 g/dL (11.2-15.7); Lymphocytes # (Auto) 0.85 K/mcL (1.50-4.80); Lymphocytes % (Auto) 8.5 % (15.5-49.0); Mean Cell Volume 90.5 fL (80.0-100.0); Mean Corpuscular HGB Conc 32.7 g/dL (31.0-36.0); Mean Platelet Volume 8.6 fL (8.8-12.5); Monocytes # (Auto) 0.66 K/mcL (0.10-0.90); Monocytes % (Auto) 6.6 % (1.0-12.0); Neutrophils % (Auto) 83.4 % (38.0-78.0); Platelet Count 385 K/mcL (140-440); RBC 5.58 M/mcL (3.59-5.38); Red Cell Distribution Width 12.3 % (11.5-14.5)
[2024-01-06 05:22] LABS: ALT/SGPT 8 U/L (<40); AST/SGOT 24 U/L (<32); Albumin 4.5 gm/dL (3.2-5.2); Alkaline Phosphatase 97 U/L (39-117); Amylase 42 U/L (28-100); Blood Urea Nitrogen 18 mg/dL (6-20); C-Reactive Protein 0.86 mg/dL (0.03-0.80); Calcium 10.6 mg/dL (8.6-10.4); Carbon Dioxide 22 mmol/L (22-30); Chloride 99 mmol/L (96-108); Globulin 4.4 gm/dL (2.2-3.7); Glomerular Filtration Rate 56; Glucose 123 mg/dL (70-105)
[2024-01-06 06:21] LABS: HCG,Serum Negative
[2024-01-06] MEDS: cefTRIAXone 1 GM VIAL IV ONE (07:14)
[2024-01-06 07:55] LABS: Appearance,Urine Clear (Clear); Bacteria,Urine Mod /hpf (0); Bilirubin,Urine Small mg/dL (Negative); Color,Urine Yellow; Culture Indicated,Urine No; Glucose,Urine (UA) 100 mg/dL (Negative); Ketones,Urine Trace mg/dL (Negative); Leukocyte Esterase,Urine Large /uL (Negative); Nitrate,Urine Negative (Negative); Protein,Urine 100 mg/dL (Negative); Urine Blood Negative ery/mcL (Negative); Urine RBC 2 /hpf (0-3); Urine Renal Epithelial Cells 2 /hpf (0-2); Urine Squamous Epithelial Cell 55 /hpf (0-4); Urine WBC 8 /hpf (0-4); Urobilinogen,Urine Normal
[2024-01-06] MEDS: 0.9 % SODIUM CHLORIDE 1,000 ML IV SCH (17:33)
[2024-01-06] MEDS: PYRIDOSTIGMINE BROMIDE 10 MG/2 ML AMPUL IV SCH (17:33)
[2024-01-06] MEDS: METOCLOPRAMIDE 10 MG/2 ML VIAL IV SCH (17:34)
[2024-01-06] MEDS ORDERED: METHOCARBAMOL 750 MG TABLET PO PRN (17:51)
[2024-01-06] MEDS ORDERED: traZODone HCL 50 MG TABLET PO PRN (17:51)
[2024-01-06] MEDS ORDERED: busPIRone 5 MG TABLET PO PRN (17:59)
[2024-01-06] MEDS ORDERED: hydrOXYzine 25 MG TABLET PO PRN (18:00)
[2024-01-06] MEDS: MIRTAZAPINE 15 MG TABLET PO SCH (20:35)
[2024-01-06] MEDS: DIVALPROEX SODIUM 250 MG TABLET PO SCH (20:35)
[2024-01-06] MEDS ORDERED: OLANZapine 5 MG TABLET PO SCH (21:00)
[2024-01-06] MEDS ORDERED: PYRIDOSTIGMINE 60 MG TABLET PO SCH (21:00)
[2024-01-06] MEDS ORDERED: carBAMazepine 100 MG TAB.ER.12H PO SCH (21:00)
[2024-01-07 01:58] LABS: Amphetamine Screen,Urine Suspect positive; Barbiturate Screen,Urine None detected; Benzodiazepines Screen,Urine Suspect positive; Cannabinoid Screen,Urine None detected; Cocaine Screen,Urine None detected; Opiate Screen,Urine None detected; Oxycodone, Urine Screen None detected; Phencyclidine Screen,Urine None detected
[2024-01-07] MEDS: NICOTINE 7 MG PATCH TOPICAL SCH (08:18)
[2024-01-07] MEDS: PANTOPRAZOLE 40 MG TABLET PO SCH (08:18)
[2024-01-07] MEDS: FLUZONE QUAD QS2023-24/PF 60 MCG/0.5 ML SYRINGE IM ONE (08:18)
[2024-01-07] MEDS: clonazePAM 1 MG TABLET PO PRN (08:22)
[2024-01-07] MEDS ORDERED: CITALOPRAM 20 MG TABLET PO SCH (09:00)
[2024-01-08] MEDS: ONDANSETRON 4 MG/2 ML VIAL IV PRN (08:02)
[2024-01-08] MEDS: PIPERACILLIN SODIUM/TAZOBACTAM 3.375 GM in DEXTROSE 5% IN WATER 50 ML IV ONE (09:07)
[2024-01-08] MEDS: PIPERACILLIN SODIUM/TAZOBACTAM 3.375 GM in DEXTROSE 5% IN WATER 100 ML IV SCH (12:13)
[2024-01-08] MEDS: POLYETHYLENE GLYCOL 3350 17 GM PACKET PO SCH (13:11)
[2024-01-09 07:01] LABS: ALT/SGPT 6 U/L (<40); AST/SGOT 16 U/L (<32); Albumin 3.6 gm/dL (3.2-5.2); Albumin/Globulin Ratio 1.1 (1.0-2.3); Alkaline Phosphatase 74 U/L (39-117); Bilirubin,Direct 0.2 mg/dL (<0.3); Bilirubin,Total 0.8 mg/dL (0.1-1.0); Blood Urea Nitrogen 14 mg/dL (6-20); Calcium 8.4 mg/dL (8.6-10.4); Carbon Dioxide 19 mmol/L (22-30); Chloride 101 mmol/L (96-108); Globulin 3.2 gm/dL (2.2-3.7); Glomerular Filtration Rate 98; Glucose 55 mg/dL (70-105); Lactate Dehydrogenase 161 U/L (135-225); Phosphorous 2.5 mg/dL (2.5-4.5); Triglycerides 182 mg/dL (<150); Uric Acid 3.8 mg/dL (2.5-8.0)
[2024-01-09 07:46] LABS: Basophils # (Auto) 0.03 K/mcL (0.00-0.30); Basophils % (Auto) 0.5 % (0.0-2.0); Eosinophils # (Auto) 0.09 K/mcL (0.00-0.70); Eosinophils % (Auto) 1.4 % (0.0-7.0); Hematocrit 39.7 % (34.1-44.9); Hemoglobin 13.2 g/dL (11.2-15.7); Lymphocytes # (Auto) 1.53 K/mcL (1.50-4.80); Lymphocytes % (Auto) 23.7 % (15.5-49.0); Mean Cell Volume 90.2 fL (80.0-100.0); Mean Corpuscular HGB Conc 33.2 g/dL (31.0-36.0); Mean Platelet Volume 8.6 fL (8.8-12.5); Monocytes # (Auto) 0.24 K/mcL (0.10-0.90); Monocytes % (Auto) 3.7 % (1.0-12.0); Neutrophils % (Auto) 69.2 % (38.0-78.0); Platelet Count 361 K/mcL (140-440); Red Cell Distribution Width 11.9 % (11.5-14.5); WBC 6.5 K/mcL (4.5-11.0)
[2024-01-09] MEDS: PROMETHAZINE 25 MG/ML VIAL IV ONE ×2 (13:44→14:01)
[2024-01-09] MEDS: PROMETHAZINE 25 MG/ML VIAL ONE (14:00)
[2024-01-09] MEDS: HYDROmorphone 1 MG/ML SYRINGE IV PRN (16:10)
[2024-01-12 05:15] LABS: Amphetamine Screen Positive
[2024-01-13 16:17] LABS: Alprazolam, Urine Negative (Cutoff=100); Clonazepam Confirm, Urine 597 ng/mL (Cutoff=100); Clonazepam, Urine Positive; Flurazepam, Urine Negative (Cutoff=100); Lorazepam, Urine Negative (Cutoff=100); Midazolam, Urine Negative (Cutoff=100); Nordiazepam, Urine Negative (Cutoff=100); Oxazepam, Urine Negative (Cutoff=100); Temazepam, Urine Negative (Cutoff=100); Triazolam, Urine Negative (Cutoff=100)
== END 2024-01-11 14:40 | disposition home or self-care (01) | DRG 389 ==
LOC: ED 04:06 → MEDSUR 11:06
PROVIDERS: ADMIT Family Medicine Adult Medicine; ATTEND Family Medicine Adult Medicine

== ENCOUNTER 2024-01-19 04:57 | Inpatient (IN) ==
[2024-01-19] MEDS: 0.9 % SODIUM CHLORIDE 1,000 ML IV ONE (05:53)
[2024-01-19] MEDS: ONDANSETRON 4 MG/2 ML VIAL IV ONE (05:54)
[2024-01-19] MEDS: fentaNYL 100 MCG/2 ML VIAL IV ONE (05:54)
[2024-01-19] MEDS: LEVOFLOXACIN 750 MG/150 ML BAG IV ONE (06:04)
[2024-01-19 06:08] LABS: ALT/SGPT 59 U/L (<40); AST/SGOT 49 U/L (<32); Albumin 4.1 gm/dL (3.2-5.2); Albumin/Globulin Ratio 1.2 (1.0-2.3); Alkaline Phosphatase 69 U/L (39-117); Blood Urea Nitrogen 16 mg/dL (6-20); Calcium 9.3 mg/dL (8.6-10.4); Carbon Dioxide 22 mmol/L (22-30); Chloride 96 mmol/L (96-108); Globulin 3.5 gm/dL (2.2-3.7); Glomerular Filtration Rate 83; Glucose 159 mg/dL (70-105)
[2024-01-19 06:26] LABS: Appearance,Urine Clear (Clear); Bacteria,Urine Rare /hpf (0); Bilirubin,Urine Moderate mg/dL (Negative); Calcium Oxalate Crystals,Urine Mod /hpf; Color,Urine Amber; Culture Indicated,Urine No; Glucose,Urine (UA) Negative (Negative); Ketones,Urine 40 mg/dL (Negative); Leukocyte Esterase,Urine Small /uL (Negative); Nitrate,Urine Negative (Negative); Protein,Urine 30 mg/dL (Negative); Specific Gravity,Urine 1.025 (1.000-1.035); Urine Blood Negative ery/mcL (Negative); Urine Budding Yeast Few /hpf; Urine RBC 1 /hpf (0-3); Urine Squamous Epithelial Cell 10 /hpf (0-4); Urine WBC 1 /hpf (0-4); Urobilinogen,Urine Normal
[2024-01-19 06:26] LABS: Basophils # (Auto) 0.03 K/mcL (0.00-0.30); Basophils % (Auto) 0.2 % (0.0-2.0); Eosinophils # (Auto) 0.02 K/mcL (0.00-0.70); Eosinophils % (Auto) 0.1 % (0.0-7.0); Hematocrit 41.7 % (34.1-44.9); Lymphocytes # (Auto) 0.83 K/mcL (1.50-4.80); Lymphocytes % (Auto) 5.9 % (15.5-49.0); Mean Cell Volume 89.7 fL (80.0-100.0); Mean Corpuscular HGB Conc 33.6 g/dL (31.0-36.0); Mean Platelet Volume 9.7 fL (8.8-12.5); Monocytes # (Auto) 0.94 K/mcL (0.10-0.90); Monocytes % (Auto) 6.7 % (1.0-12.0); Neutrophils % (Auto) 86.9 % (38.0-78.0); Platelet Count 525 K/mcL (140-440); RBC 4.65 M/mcL (3.59-5.38); Red Cell Distribution Width 12.7 % (11.5-14.5)
[2024-01-19] MEDS: NICOTINE 21 MG PATCH TOPICAL SCH (10:33)
[2024-01-19] MEDS: morphine 2 MG/ML VIAL IV PRN (10:34)
[2024-01-19] MEDS: LORazepam 2 MG/ML VIAL IV PRN (10:35)
[2024-01-19] MEDS: ONDANSETRON 4 MG/2 ML VIAL IV PRN (10:51)
[2024-01-19] MEDS: PYRIDOSTIGMINE BROMIDE 10 MG/2 ML AMPUL IV SCH (10:51)
[2024-01-19] MEDS: 0.9 % SODIUM CHLORIDE 1,000 ML IV SCH (10:52)
[2024-01-19] MEDS: METOCLOPRAMIDE 10 MG/2 ML VIAL IV SCH (12:37)
[2024-01-19] MEDS: LEVOFLOXACIN 750 MG/150 ML BAG IV SCH (14:21)
[2024-01-19] MEDS: PANTOPRAZOLE 40 MG VIAL IV SCH (18:41)
[2024-01-19 23:48] LABS: Amphetamine Screen,Urine Suspect positive; Barbiturate Screen,Urine None detected; Benzodiazepines Screen,Urine None detected; Cannabinoid Screen,Urine None detected; Cocaine Screen,Urine None detected; Opiate Screen,Urine None detected; Oxycodone, Urine Screen None detected; Phencyclidine Screen,Urine None detected
[2024-01-21 08:00] LABS: ALT/SGPT 42 U/L (<40); AST/SGOT 33 U/L (<32); Albumin 3.5 gm/dL (3.2-5.2); Albumin/Globulin Ratio 1.2 (1.0-2.3); Alkaline Phosphatase 65 U/L (39-117); Bilirubin,Direct < 0.2 mg/dL (0-0.3); Bilirubin,Total 0.5 mg/dL (0.1-1.0); Blood Urea Nitrogen 9 mg/dL (6-20); Calcium 8.6 mg/dL (8.6-10.4); Carbon Dioxide 18 mmol/L (22-30); Chloride 101 mmol/L (96-108); Glomerular Filtration Rate 103; Glucose 63 mg/dL (70-105); Lactate Dehydrogenase 212 U/L (135-225); Phosphorous 2.2 mg/dL (2.5-4.5); Triglycerides 112 mg/dL (<150)
[2024-01-21 08:50] LABS: Basophils # (Auto) 0.05 K/mcL (0.00-0.30); Basophils % (Auto) 0.7 % (0.0-2.0); Eosinophils % (Auto) 1.3 % (0.0-7.0); Hematocrit 43.8 % (34.1-44.9); Hemoglobin 14.2 g/dL (11.2-15.7); Lymphocytes # (Auto) 1.51 K/mcL (1.50-4.80); Lymphocytes % (Auto) 20.4 % (15.5-49.0); Mean Corpuscular HGB Conc 32.4 g/dL (31.0-36.0); Mean Platelet Volume 9.8 fL (8.8-12.5); Monocytes # (Auto) 0.44 K/mcL (0.10-0.90); Monocytes % (Auto) 5.9 % (1.0-12.0); Neutrophils % (Auto) 71.6 % (38.0-78.0); Platelet Count 433 K/mcL (140-440); RBC 4.71 M/mcL (3.59-5.38); Red Cell Distribution Width 12.8 % (11.5-14.5); WBC 7.4 K/mcL (4.5-11.0)
[2024-01-21 08:59] LABS: Erythrocyte Sedimentation Rate 23 mm/hr (0-30)
[2024-01-21] MEDS: POLYETHYLENE GLYCOL 3350 17 GM PACKET PO SCH (17:52)
[2024-01-21] MEDS: POTASSIUM PHOSPHATE 40 MEQ in DEXTROSE 5% IN WATER 500 ML IV SCH (18:07)
[2024-01-22 06:51] LABS: Basophils # (Auto) 0.03 K/mcL (0.00-0.30); Basophils % (Auto) 0.5 % (0.0-2.0); Eosinophils # (Auto) 0.17 K/mcL (0.00-0.70); Eosinophils % (Auto) 2.9 % (0.0-7.0); Hematocrit 35.6 % (34.1-44.9); Hemoglobin 11.7 g/dL (11.2-15.7); Lymphocytes % (Auto) 20.3 % (15.5-49.0); Mean Cell Volume 90.4 fL (80.0-100.0); Mean Corpuscular HGB Conc 32.9 g/dL (31.0-36.0); Mean Platelet Volume 9.9 fL (8.8-12.5); Monocytes % (Auto) 10.1 % (1.0-12.0); Platelet Count 479 K/mcL (140-440); RBC 3.94 M/mcL (3.59-5.38); Red Cell Distribution Width 12.9 % (11.5-14.5); WBC 5.9 K/mcL (4.5-11.0)
[2024-01-22 07:11] LABS: ALT/SGPT 29 U/L (<40); AST/SGOT 17 U/L (<32); Albumin 3.4 gm/dL (3.2-5.2); Albumin/Globulin Ratio 1.2 (1.0-2.3); Alkaline Phosphatase 60 U/L (39-117); Bilirubin,Direct < 0.2 mg/dL (0-0.3); Bilirubin,Total 0.5 mg/dL (0.1-1.0); Blood Urea Nitrogen 5 mg/dL (6-20); Calcium 9.1 mg/dL (8.6-10.4); Carbon Dioxide 22 mmol/L (22-30); Chloride 101 mmol/L (96-108); Globulin 2.8 gm/dL (2.2-3.7); Glomerular Filtration Rate 103; Glucose 77 mg/dL (70-105); Lactate Dehydrogenase 123 U/L (135-225); Phosphorous 3.8 mg/dL (2.5-4.5); Triglycerides 112 mg/dL (<150); Uric Acid 4.6 mg/dL (2.5-8.0)
[2024-01-22] MEDS ORDERED: FLEETS ADULT 1 DOSE ENEMA PR PRN (14:29)
[2024-01-23 06:26] LABS: Basophils # (Auto) 0.03 K/mcL (0.00-0.30); Basophils % (Auto) 0.6 % (0.0-2.0); Eosinophils # (Auto) 0.14 K/mcL (0.00-0.70); Eosinophils % (Auto) 2.7 % (0.0-7.0); Hematocrit 35.9 % (34.1-44.9); Lymphocytes # (Auto) 1.17 K/mcL (1.50-4.80); Lymphocytes % (Auto) 22.8 % (15.5-49.0); Mean Cell Volume 90.2 fL (80.0-100.0); Mean Corpuscular HGB Conc 33.4 g/dL (31.0-36.0); Mean Platelet Volume 9.5 fL (8.8-12.5); Monocytes # (Auto) 0.52 K/mcL (0.10-0.90); Monocytes % (Auto) 10.1 % (1.0-12.0); Neutrophils % (Auto) 63.4 % (38.0-78.0); Platelet Count 472 K/mcL (140-440); RBC 3.98 M/mcL (3.59-5.38); Red Cell Distribution Width 12.9 % (11.5-14.5); WBC 5.1 K/mcL (4.5-11.0)
[2024-01-23 06:51] LABS: ALT/SGPT 23 U/L (<40); AST/SGOT 13 U/L (<32); Albumin 3.2 gm/dL (3.2-5.2); Albumin/Globulin Ratio 1.1 (1.0-2.3); Alkaline Phosphatase 55 U/L (39-117); Bilirubin,Direct 0.2 mg/dL (<0.3); Bilirubin,Total 0.6 mg/dL (0.1-1.0); Blood Urea Nitrogen 4 mg/dL (6-20); Calcium 8.3 mg/dL (8.6-10.4); Carbon Dioxide 23 mmol/L (22-30); Chloride 104 mmol/L (96-108); Glomerular Filtration Rate 103; Glucose 101 mg/dL (70-105); Lactate Dehydrogenase 120 U/L (135-225); Phosphorous 2.4 mg/dL (2.5-4.5); Triglycerides 118 mg/dL (<150)
[2024-01-23] MEDS: NEUTRA PHOS 1 PACKET PO SCH (07:49)
[2024-01-23] MEDS: fentaNYL 100 MCG/2 ML VIAL IV PRN (08:14)
[2024-01-23] MEDS ORDERED: METHOCARBAMOL 750 MG TABLET PO PRN (16:06)
[2024-01-23] MEDS: traMADol 50 MG TABLET PO PRN (18:57)
[2024-01-23] MEDS: PYRIDOSTIGMINE 60 MG TABLET PO SCH (22:31)
[2024-01-23] MEDS: traZODone HCL 50 MG TABLET PO PRN (22:31)
[2024-01-24] MEDS: clonazePAM 1 MG TABLET PO PRN (05:34)
[2024-01-24] MEDS: CITALOPRAM 20 MG TABLET PO SCH (09:15)
[2024-01-24] MEDS: hydrOXYzine 25 MG TABLET PO PRN (12:15)
[2024-01-24] MEDS: busPIRone 5 MG TABLET PO SCH (12:16)
[2024-01-24] MEDS: FLEETS ADULT 1 DOSE ENEMA PR SCH (17:04)
[2024-01-24] MEDS: PANTOPRAZOLE 40 MG TABLET PO SCH (17:05)
[2024-01-24] MEDS: METOCLOPRAMIDE 10 MG TABLET PO SCH (17:05)
[2024-01-25 09:46] LABS: Basophils # (Auto) 0.03 K/mcL (0.00-0.30); Basophils % (Auto) 0.6 % (0.0-2.0); Eosinophils # (Auto) 0.17 K/mcL (0.00-0.70); Eosinophils % (Auto) 3.5 % (0.0-7.0); Hematocrit 38.2 % (34.1-44.9); Hemoglobin 12.4 g/dL (11.2-15.7); Lymphocytes # (Auto) 1.52 K/mcL (1.50-4.80); Mean Cell Volume 91.8 fL (80.0-100.0); Mean Corpuscular HGB Conc 32.5 g/dL (31.0-36.0); Mean Platelet Volume 9.4 fL (8.8-12.5); Monocytes # (Auto) 0.63 K/mcL (0.10-0.90); Monocytes % (Auto) 12.8 % (1.0-12.0); Neutrophils % (Auto) 51.3 % (38.0-78.0); Platelet Count 476 K/mcL (140-440); RBC 4.16 M/mcL (3.59-5.38); Red Cell Distribution Width 13.2 % (11.5-14.5); WBC 4.9 K/mcL (4.5-11.0)
[2024-01-25 11:04] LABS: ALT/SGPT 17 U/L (<40); AST/SGOT 20 U/L (<32); Albumin 3.2 gm/dL (3.2-5.2); Albumin/Globulin Ratio 1.2 (1.0-2.3); Alkaline Phosphatase 55 U/L (39-117); Anion Gap 6.5 (8.0-16.0); Bilirubin,Direct < 0.2 mg/dL (0-0.3); Bilirubin,Total 0.5 mg/dL (0.1-1.0); Blood Urea Nitrogen 3 mg/dL (6-20); Calcium 8.5 mg/dL (8.6-10.4); Carbon Dioxide 25 mmol/L (22-30); Chloride 106 mmol/L (96-108); Globulin 2.6 gm/dL (2.2-3.7); Glomerular Filtration Rate 101; Glucose 100 mg/dL (70-105); Lactate Dehydrogenase 119 U/L (135-225); Triglycerides 91 mg/dL (<150); Uric Acid 2.4 mg/dL (2.5-8.0)
[2024-01-28 15:09] LABS: Amphetamine Screen Positive
== END 2024-01-25 18:35 | disposition home or self-care (01) | DRG 392 ==
LOC: ED 04:57 → MEDSUR 08:30
PROVIDERS: ADMIT Family Medicine Adult Medicine; ATTEND Family Medicine Adult Medicine

== ENCOUNTER 2025-03-30 10:13 | Inpatient (IN) ==
[2025-03-30] MEDS ORDERED: IOPAMIDOL 100 ML BOTTLE IV ONE (10:14)
[2025-03-30] MEDS: 0.9 % SODIUM CHLORIDE 1,000 ML IV ONE ×2 (10:15→11:20)
[2025-03-30 10:56] LABS: Basophils # (Auto) 0.04 K/mcL (0.00-0.30); Basophils % (Auto) 0.3 % (0.0-2.0); Eosinophils % (Auto) 0.8 % (0.0-7.0); Hematocrit 46.2 % (34.1-44.9); Hemoglobin 15.3 g/dL (11.2-15.7); Lymphocytes # (Auto) 1.42 K/mcL (1.50-4.80); Lymphocytes % (Auto) 11.4 % (15.5-49.0); Mean Cell Volume 90.6 fL (80.0-100.0); Mean Corpuscular HGB Conc 33.1 g/dL (31.0-36.0); Mean Platelet Volume 8.9 fL (8.8-12.5); Monocytes # (Auto) 0.99 K/mcL (0.10-0.90); Neutrophils % (Auto) 79.3 % (38.0-78.0); Platelet Count 401 K/mcL (140-440); WBC 12.4 K/mcL (4.5-11.0)
[2025-03-30 11:17] LABS: INR 0.9 (0.9-1.1); Prothrombin Time 12.6 sec (11.9-14.5)
[2025-03-30 12:47] LABS: ALT/SGPT 13 U/L (<40); AST/SGOT 14 U/L (<32); Albumin/Globulin Ratio 1.4 (1.0-2.3); Alkaline Phosphatase 67 U/L (39-117); Bilirubin,Total 0.9 mg/dL (0.1-1.0); Blood Urea Nitrogen 26 mg/dL (6-20); Calcium 9.1 mg/dL (8.6-10.4); Carbon Dioxide 23 mmol/L (22-30); Chloride 101 mmol/L (96-108); Globulin 2.9 gm/dL (2.2-3.7); Glomerular Filtration Rate 71; Glucose 122 mg/dL (70-105); Potassium 4.2 mmol/L (3.3-5.1); Sodium 134 mmol/L (133-145)
[2025-03-30 16:40] LABS: INR 0.9 (0.9-1.1); Prothrombin Time 12.9 sec (11.9-14.5)
[2025-03-30] MEDS ORDERED: METOCLOPRAMIDE 10 MG/2 ML VIAL IV SCH (18:00)
[2025-03-30] MEDS: 0.9 % SODIUM CHLORIDE 1,000 ML IV SCH (18:05)
[2025-03-30] MEDS: PANTOPRAZOLE 40 MG VIAL IV SCH (18:05)
[2025-03-30] MEDS: DIAZEPAM 10 MG/2 ML SYRINGE IV SCH (20:34)
[2025-03-30] MEDS: PYRIDOSTIGMINE BROMIDE 10 MG/2 ML AMPUL IV SCH (20:34)
[2025-03-31 02:48] LABS: Amphetamine Screen,Urine Suspect positive; Barbiturate Screen,Urine None detected; Benzodiazepines Screen,Urine Suspect positive; Cannabinoid Screen,Urine None detected; Cocaine Screen,Urine None detected; Fentanyl, Urine Screen None Detected; Opiate Screen,Urine None detected; Oxycodone, Urine Screen None detected; Phencyclidine Screen,Urine None detected
[2025-03-31 06:24] LABS: Basophils # (Auto) 0.05 K/mcL (0.00-0.30); Basophils % (Auto) 0.8 % (0.0-2.0); Eosinophils # (Auto) 0.14 K/mcL (0.00-0.70); Eosinophils % (Auto) 2.3 % (0.0-7.0); Hematocrit 37.6 % (34.1-44.9); Hemoglobin 12.4 g/dL (11.2-15.7); Lymphocytes # (Auto) 1.14 K/mcL (1.50-4.80); Lymphocytes % (Auto) 18.5 % (15.5-49.0); Mean Cell Volume 92.4 fL (80.0-100.0); Mean Platelet Volume 9.1 fL (8.8-12.5); Neutrophils % (Auto) 65.4 % (38.0-78.0); Platelet Count 323 K/mcL (140-440); RBC 4.07 M/mcL (3.59-5.38); Red Cell Distribution Width 13.6 % (11.5-14.5); WBC 6.2 K/mcL (4.5-11.0)
[2025-03-31 06:32] LABS: ALT/SGPT 15 U/L (<40); AST/SGOT 17 U/L (<32); Albumin 3.5 gm/dL (3.2-5.2); Albumin/Globulin Ratio 1.3 (1.0-2.3); Alkaline Phosphatase 58 U/L (39-117); Bilirubin,Direct 0.7 mg/dL (<0.3); Bilirubin,Total 1.8 mg/dL (0.1-1.0); Blood Urea Nitrogen 23 mg/dL (6-20); Calcium 8.2 mg/dL (8.6-10.4); Carbon Dioxide 21 mmol/L (22-30); Chloride 109 mmol/L (96-108); Globulin 2.6 gm/dL (2.2-3.7); Glomerular Filtration Rate 82; Glucose 101 mg/dL (70-105); Lactate Dehydrogenase 151 U/L (135-225); Phosphorous 2.9 mg/dL (2.5-4.5); Sodium 138 mmol/L (133-145); Triglycerides 66 mg/dL (<150); Uric Acid 3.5 mg/dL (2.5-8.0)
[2025-03-31] MEDS: NICOTINE 7 MG PATCH TOPICAL SCH (08:36)
[2025-03-31] MEDS: fentaNYL 100 MCG/2 ML VIAL IV PRN (12:33)
[2025-03-31] MEDS: 0.9 % SODIUM CHLORIDE 1,000 ML IV ONE (17:44)
[2025-04-01] MEDS: ONDANSETRON 4 MG/2 ML VIAL IV PRN (04:22)
[2025-04-01 06:35] LABS: Basophils # (Auto) 0.04 K/mcL (0.00-0.30); Basophils % (Auto) 0.7 % (0.0-2.0); Eosinophils # (Auto) 0.13 K/mcL (0.00-0.70); Eosinophils % (Auto) 2.1 % (0.0-7.0); Hematocrit 36.9 % (34.1-44.9); Hemoglobin 12.1 g/dL (11.2-15.7); Lymphocytes # (Auto) 1.11 K/mcL (1.50-4.80); Lymphocytes % (Auto) 18.1 % (15.5-49.0); Mean Cell Volume 93.7 fL (80.0-100.0); Mean Corpuscular HGB Conc 32.8 g/dL (31.0-36.0); Mean Platelet Volume 9.2 fL (8.8-12.5); Monocytes # (Auto) 0.46 K/mcL (0.10-0.90); Monocytes % (Auto) 7.5 % (1.0-12.0); Neutrophils % (Auto) 71.3 % (38.0-78.0); Platelet Count 311 K/mcL (140-440); RBC 3.94 M/mcL (3.59-5.38); Red Cell Distribution Width 13.3 % (11.5-14.5); WBC 6.1 K/mcL (4.5-11.0)
[2025-04-01 06:52] LABS: ALT/SGPT 13 U/L (<40); AST/SGOT 14 U/L (<32); Albumin 3.4 gm/dL (3.2-5.2); Albumin/Globulin Ratio 1.3 (1.0-2.3); Alkaline Phosphatase 61 U/L (39-117); Bilirubin,Direct 0.6 mg/dL (<0.3); Bilirubin,Total 1.3 mg/dL (0.1-1.0); Blood Urea Nitrogen 18 mg/dL (6-20); Calcium 8.1 mg/dL (8.6-10.4); Carbon Dioxide 16 mmol/L (22-30); Chloride 107 mmol/L (96-108); Globulin 2.7 gm/dL (2.2-3.7); Glomerular Filtration Rate 97; Glucose 59 mg/dL (70-105); Lactate Dehydrogenase 135 U/L (135-225); Phosphorous 1.8 mg/dL (2.5-4.5); Potassium 3.9 mmol/L (3.3-5.1); Sodium 135 mmol/L (133-145); Triglycerides 101 mg/dL (<150); Uric Acid 4.2 mg/dL (2.5-8.0)
[2025-04-01] MEDS: DEXTROSE 5%-NS 1,000 ML IV SCH (15:29)
[2025-04-01] MEDS: POTASSIUM PHOSPHATE 40 MEQ in DEXTROSE 5% IN WATER 500 ML IV SCH (16:37)
[2025-04-01] MEDS: hydrALAZINE 20 MG/ML VIAL IV PRN (19:40)
[2025-04-02 06:41] LABS: Basophils # (Auto) 0.02 K/mcL (0.00-0.30); Basophils % (Auto) 0.3 % (0.0-2.0); Eosinophils # (Auto) 0.16 K/mcL (0.00-0.70); Eosinophils % (Auto) 2.6 % (0.0-7.0); Hematocrit 35.8 % (34.1-44.9); Lymphocytes # (Auto) 0.99 K/mcL (1.50-4.80); Lymphocytes % (Auto) 15.8 % (15.5-49.0); Mean Cell Volume 89.9 fL (80.0-100.0); Mean Corpuscular HGB Conc 33.5 g/dL (31.0-36.0); Mean Platelet Volume 9.3 fL (8.8-12.5); Monocytes % (Auto) 11.2 % (1.0-12.0); Neutrophils % (Auto) 69.9 % (38.0-78.0); Platelet Count 320 K/mcL (140-440); RBC 3.98 M/mcL (3.59-5.38); Red Cell Distribution Width 12.8 % (11.5-14.5); WBC 6.3 K/mcL (4.5-11.0)
[2025-04-02] MEDS: DIAZEPAM 10 MG/2 ML SYRINGE IV SCH (12:14)
[2025-04-02] MEDS: POLYETHYLENE GLYCOL 3350 17 GM PACKET PO SCH (15:44)
[2025-04-02] MEDS: DEXTROSE 5%-NS 1,000 ML IV SCH (15:45)
[2025-04-04 06:21] LABS: Basophils # (Auto) 0.02 K/mcL (0.00-0.30); Basophils % (Auto) 0.4 % (0.0-2.0); Eosinophils # (Auto) 0.17 K/mcL (0.00-0.70); Hematocrit 35.4 % (34.1-44.9); Hemoglobin 11.9 g/dL (11.2-15.7); Lymphocytes # (Auto) 1.45 K/mcL (1.50-4.80); Lymphocytes % (Auto) 25.8 % (15.5-49.0); Mean Cell Volume 89.8 fL (80.0-100.0); Mean Corpuscular HGB Conc 33.6 g/dL (31.0-36.0); Mean Platelet Volume 9.3 fL (8.8-12.5); Monocytes # (Auto) 0.61 K/mcL (0.10-0.90); Monocytes % (Auto) 10.9 % (1.0-12.0); Neutrophils % (Auto) 59.5 % (38.0-78.0); Platelet Count 296 K/mcL (140-440); RBC 3.94 M/mcL (3.59-5.38); Red Cell Distribution Width 12.8 % (11.5-14.5); WBC 5.6 K/mcL (4.5-11.0)
[2025-04-04 06:49] LABS: ALT/SGPT 12 U/L (<40); AST/SGOT 12 U/L (<32); Albumin 3.2 gm/dL (3.2-5.2); Albumin/Globulin Ratio 1.3 (1.0-2.3); Alkaline Phosphatase 51 U/L (39-117); Bilirubin,Direct 0.2 mg/dL (<0.3); Bilirubin,Total 0.5 mg/dL (0.1-1.0); Blood Urea Nitrogen 3 mg/dL (6-20); Calcium 8.2 mg/dL (8.6-10.4); Carbon Dioxide 26 mmol/L (22-30); Chloride 107 mmol/L (96-108); Globulin 2.4 gm/dL (2.2-3.7); Glomerular Filtration Rate 102; Glucose 103 mg/dL (70-105); Lactate Dehydrogenase 112 U/L (135-225); Phosphorous 2.4 mg/dL (2.5-4.5); Potassium 3.3 mmol/L (3.3-5.1); Sodium 138 mmol/L (133-145); Triglycerides 107 mg/dL (<150); Uric Acid 2.3 mg/dL (2.5-8.0)
[2025-04-04] MEDS: MAGNESIUM CITRATE 300 ML ORAL.SOL PO SCH (08:33)
[2025-04-04] MEDS: POTASSIUM PHOSPHATE 40 MEQ in DEXTROSE 5% IN WATER 500 ML IV SCH (15:03)
[2025-04-05 06:02] LABS: Basophils # (Auto) 0.04 K/mcL (0.00-0.30); Basophils % (Auto) 0.8 % (0.0-2.0); Eosinophils # (Auto) 0.23 K/mcL (0.00-0.70); Eosinophils % (Auto) 4.7 % (0.0-7.0); Hematocrit 36.8 % (34.1-44.9); Hemoglobin 12.3 g/dL (11.2-15.7); Lymphocytes # (Auto) 1.72 K/mcL (1.50-4.80); Lymphocytes % (Auto) 35.4 % (15.5-49.0); Mean Cell Volume 90.9 fL (80.0-100.0); Mean Corpuscular HGB Conc 33.4 g/dL (31.0-36.0); Mean Platelet Volume 9.3 fL (8.8-12.5); Monocytes # (Auto) 0.47 K/mcL (0.10-0.90); Monocytes % (Auto) 9.7 % (1.0-12.0); Platelet Count 328 K/mcL (140-440); RBC 4.05 M/mcL (3.59-5.38); WBC 4.9 K/mcL (4.5-11.0)
[2025-04-05 06:42] LABS: ALT/SGPT 11 U/L (<40); AST/SGOT 11 U/L (<32); Albumin 3.4 gm/dL (3.2-5.2); Albumin/Globulin Ratio 1.4 (1.0-2.3); Alkaline Phosphatase 50 U/L (39-117); Bilirubin,Direct < 0.2 mg/dL (0-0.3); Bilirubin,Total 0.3 mg/dL (0.1-1.0); Blood Urea Nitrogen 6 mg/dL (6-20); Calcium 8.7 mg/dL (8.6-10.4); Carbon Dioxide 26 mmol/L (22-30); Chloride 104 mmol/L (96-108); Globulin 2.4 gm/dL (2.2-3.7); Glomerular Filtration Rate 97; Glucose 103 mg/dL (70-105); Lactate Dehydrogenase 116 U/L (135-225); Phosphorous 3.6 mg/dL (2.5-4.5); Sodium 138 mmol/L (133-145); Triglycerides 80 mg/dL (<150); Uric Acid 2.2 mg/dL (2.5-8.0)
[2025-04-05] MEDS: PYRIDOSTIGMINE 60 MG TABLET PO SCH (17:28)
[2025-04-05] MEDS: BISACODYL 5 MG TABLET PO ONE (17:56)
[2025-04-05] MEDS ORDERED: BISACODYL 5 MG TABLET PO ONE (18:00)
[2025-04-06 11:01] VITALS: TEMP 98.6; O2SAT 96
[2025-04-08 07:09] LABS: Amphetamine Screen Positive
== END 2025-04-06 16:36 | disposition home or self-care (01) | DRG 391 ==
LOC: ED 10:13 → MEDSUR 17:43
PROVIDERS: ADMIT Family Medicine Adult Medicine; ATTEND Family Medicine Adult Medicine

== ENCOUNTER 2025-06-01 04:07 | Inpatient (IN) ==
[2025-06-01] MEDS ORDERED: IOPAMIDOL 100 ML BOTTLE IV ONE (04:08)
[2025-06-01] MEDS: HALOPERIDOL LACTATE 5 MG/ML VIAL IM ONE (04:54)
[2025-06-01] MEDS: PANTOPRAZOLE 40 MG VIAL IV ONE (05:02)
[2025-06-01] MEDS: 0.9 % SODIUM CHLORIDE 1,000 ML IV ONE ×2 (05:02→06:36)
[2025-06-01] MEDS: ONDANSETRON 4 MG/2 ML VIAL IV ONE ×2 (05:02→07:22)
[2025-06-01] MEDS: 0.9 % SODIUM CHLORIDE 250 ML IV SCH (05:09)
[2025-06-01 05:13] LABS: Basophils # (Auto) 0.02 K/mcL (0.00-0.30); Basophils % (Auto) 0.2 % (0.0-2.0); Eosinophils # (Auto) 0.01 K/mcL (0.00-0.70); Eosinophils % (Auto) 0.1 % (0.0-7.0); Hematocrit 49.6 % (34.1-44.9); Hemoglobin 16.6 g/dL (11.2-15.7); Lymphocytes # (Auto) 0.41 K/mcL (1.50-4.80); Lymphocytes % (Auto) 4.0 % (15.5-49.0); Mean Corpuscular HGB Conc 33.5 g/dL (31.0-36.0); Monocytes # (Auto) 1.09 K/mcL (0.10-0.90); Monocytes % (Auto) 10.5 % (1.0-12.0); Neutrophils % (Auto) 85.1 % (38.0-78.0); Platelet Count 449 K/mcL (140-440); RBC 5.46 M/mcL (3.59-5.38); WBC 10.4 K/mcL (4.5-11.0)
[2025-06-01 05:27] LABS: ALT/SGPT 11 U/L (<40); AST/SGOT 17 U/L (<32); Albumin 5.1 gm/dL (3.2-5.2); Albumin/Globulin Ratio 1.2 (1.0-2.3); Alkaline Phosphatase 91 U/L (39-117); Amylase 74 U/L (28-100); Anion Gap 18.0 (8.0-16.0); Bilirubin,Total 1.7 mg/dL (0.1-1.0); Blood Urea Nitrogen 30 mg/dL (6-20); C-Reactive Protein 0.32 mg/dL (0.03-0.80); Calcium 11.0 mg/dL (8.6-10.4); Carbon Dioxide 22 mmol/L (22-30); Chloride 93 mmol/L (96-108); Globulin 4.4 gm/dL (2.2-3.7); Glucose 145 mg/dL (70-105); Potassium 4.8 mmol/L (3.3-5.1); Sodium 133 mmol/L (133-145)
[2025-06-01 06:59] LABS: Bacteria,Urine FEW /hpf (0); Bilirubin,Urine Negative (Negative); Color,Urine YELLOW; Glucose,Urine (UA) Negative (Negative); Ketones,Urine Negative (Negative); Leukocyte Esterase,Urine Negative /uL (Negative); Mucus,Urine MANY /hpf; PH,Urine 6.0 (5.0-9.0); Protein,Urine Negative (Negative); Specific Gravity,Urine 1.021 (1.000-1.035); Urine Amorphous Crystals MOD /hpf; Urobilinogen,Urine 2.0 mg/dL
[2025-06-01] MEDS: 0.9 % SODIUM CHLORIDE 1,000 ML IV SCH (08:02)
[2025-06-01] MEDS: METOCLOPRAMIDE 10 MG/2 ML VIAL IV SCH (11:36)
[2025-06-01] MEDS: PYRIDOSTIGMINE BROMIDE 10 MG/2 ML AMPUL IV SCH (11:36)
[2025-06-01 11:39] LABS: Barbiturate Screen,Urine None detected; Benzodiazepines Screen,Urine Suspect positive; Fentanyl, Urine Screen None Detected; Opiate Screen,Urine None detected; Oxycodone, Urine Screen None detected; Phencyclidine Screen,Urine None detected
[2025-06-02] MEDS: NICOTINE 7 MG PATCH TOPICAL SCH (09:14)
[2025-06-02] MEDS: CITALOPRAM 20 MG TABLET PO SCH (09:14)
[2025-06-02] MEDS: ARIPIPRAZOLE 5 MG TABLET PO SCH (09:14)
[2025-06-02] MEDS: DIAZEPAM 10 MG/2 ML SYRINGE IV ONE (13:40)
[2025-06-02] MEDS: DIAZEPAM 10 MG/2 ML SYRINGE IV PRN (21:47)
[2025-06-03 06:32] LABS: Basophils # (Auto) 0.03 K/mcL (0.00-0.30); Basophils % (Auto) 0.3 % (0.0-2.0); Eosinophils # (Auto) 0.05 K/mcL (0.00-0.70); Eosinophils % (Auto) 0.4 % (0.0-7.0); Hematocrit 34.9 % (34.1-44.9); Hemoglobin 11.5 g/dL (11.2-15.7); Lymphocytes # (Auto) 1.45 K/mcL (1.50-4.80); Lymphocytes % (Auto) 13.0 % (15.5-49.0); Mean Corpuscular HGB Conc 33.0 g/dL (31.0-36.0); Monocytes # (Auto) 1.00 K/mcL (0.10-0.90); Monocytes % (Auto) 9.0 % (1.0-12.0); Neutrophils % (Auto) 77.1 % (38.0-78.0); Platelet Count 310 K/mcL (140-440); RBC 3.71 M/mcL (3.59-5.38); WBC 11.2 K/mcL (4.5-11.0)
[2025-06-03 06:43] LABS: ALT/SGPT 13 U/L (<40); AST/SGOT 25 U/L (<32); Albumin 3.5 gm/dL (3.2-5.2); Albumin/Globulin Ratio 1.2 (1.0-2.3); Alkaline Phosphatase 56 U/L (39-117); Anion Gap 14.0 (8.0-16.0); Bilirubin,Direct 0.7 mg/dL (<0.3); Bilirubin,Total 1.6 mg/dL (0.1-1.0); Blood Urea Nitrogen 14 mg/dL (6-20); Calcium 8.5 mg/dL (8.6-10.4); Carbon Dioxide 23 mmol/L (22-30); Chloride 104 mmol/L (96-108); Globulin 2.9 gm/dL (2.2-3.7); Glucose 91 mg/dL (70-105); Phosphorous 1.7 mg/dL (2.5-4.5); Potassium 3.3 mmol/L (3.3-5.1); Sodium 141 mmol/L (133-145); Triglycerides 111 mg/dL (<150); Uric Acid 3.7 mg/dL (2.5-8.0)
[2025-06-03] MEDS: POLYETHYLENE GLYCOL 3350 17 GM PACKET PO SCH (10:11)
[2025-06-03] MEDS: MIRTAZAPINE 15 MG TABLET PO SCH (21:12)
[2025-06-03] MEDS: DIVALPROEX SODIUM 250 MG TABLET PO SCH (21:12)
[2025-06-04 06:27] LABS: Basophils # (Auto) 0.04 K/mcL (0.00-0.30); Basophils % (Auto) 0.5 % (0.0-2.0); Eosinophils # (Auto) 0.10 K/mcL (0.00-0.70); Eosinophils % (Auto) 1.3 % (0.0-7.0); Hematocrit 33.6 % (34.1-44.9); Hemoglobin 11.2 g/dL (11.2-15.7); Lymphocytes # (Auto) 1.58 K/mcL (1.50-4.80); Lymphocytes % (Auto) 20.7 % (15.5-49.0); Mean Corpuscular HGB Conc 33.3 g/dL (31.0-36.0); Monocytes # (Auto) 0.46 K/mcL (0.10-0.90); Monocytes % (Auto) 6.0 % (1.0-12.0); Neutrophils % (Auto) 71.1 % (38.0-78.0); Platelet Count 260 K/mcL (140-440); RBC 3.64 M/mcL (3.59-5.38); WBC 7.6 K/mcL (4.5-11.0)
[2025-06-04 06:59] LABS: ALT/SGPT 10 U/L (<40); AST/SGOT 18 U/L (<32); Albumin 3.1 gm/dL (3.2-5.2); Albumin/Globulin Ratio 1.3 (1.0-2.3); Alkaline Phosphatase 49 U/L (39-117); Anion Gap 11.0 (8.0-16.0); Bilirubin,Direct 0.4 mg/dL (<0.3); Bilirubin,Total 1.0 mg/dL (0.1-1.0); Blood Urea Nitrogen 7 mg/dL (6-20); Calcium 8.0 mg/dL (8.6-10.4); Carbon Dioxide 23 mmol/L (22-30); Chloride 105 mmol/L (96-108); Globulin 2.4 gm/dL (2.2-3.7); Glucose 94 mg/dL (70-105); Phosphorous 1.6 mg/dL (2.5-4.5); Potassium 3.0 mmol/L (3.3-5.1); Sodium 139 mmol/L (133-145); Triglycerides 90 mg/dL (<150); Uric Acid 3.4 mg/dL (2.5-8.0)
[2025-06-04] MEDS: POTASSIUM PHOSPHATE 40 MEQ in DEXTROSE 5% IN WATER 500 ML IV SCH (17:00)
[2025-06-05 06:12] LABS: Basophils # (Auto) 0.02 K/mcL (0.00-0.30); Basophils % (Auto) 0.3 % (0.0-2.0); Eosinophils # (Auto) 0.15 K/mcL (0.00-0.70); Eosinophils % (Auto) 2.5 % (0.0-7.0); Hematocrit 40.5 % (34.1-44.9); Hemoglobin 12.6 g/dL (11.2-15.7); Lymphocytes # (Auto) 1.97 K/mcL (1.50-4.80); Lymphocytes % (Auto) 32.6 % (15.5-49.0); Mean Corpuscular HGB Conc 31.1 g/dL (31.0-36.0); Monocytes # (Auto) 0.56 K/mcL (0.10-0.90); Monocytes % (Auto) 9.3 % (1.0-12.0); Neutrophils % (Auto) 54.6 % (38.0-78.0); Platelet Count 247 K/mcL (140-440); RBC 4.15 M/mcL (3.59-5.38); WBC 6.1 K/mcL (4.5-11.0)
[2025-06-05 07:08] LABS: ALT/SGPT 9 U/L (<40); AST/SGOT 14 U/L (<32); Albumin 3.1 gm/dL (3.2-5.2); Albumin/Globulin Ratio 1.1 (1.0-2.3); Alkaline Phosphatase 51 U/L (39-117); Anion Gap 13.0 (8.0-16.0); Bilirubin,Direct < 0.2 mg/dL (0-0.3); Bilirubin,Total 0.5 mg/dL (0.1-1.0); Blood Urea Nitrogen 6 mg/dL (6-20); Calcium 8.5 mg/dL (8.6-10.4); Carbon Dioxide 21 mmol/L (22-30); Chloride 106 mmol/L (96-108); Globulin 2.8 gm/dL (2.2-3.7); Glucose 97 mg/dL (70-105); Phosphorous 4.9 mg/dL (2.5-4.5); Potassium 4.0 mmol/L (3.3-5.1); Sodium 140 mmol/L (133-145); Triglycerides 85 mg/dL (<150); Uric Acid 2.5 mg/dL (2.5-8.0)
[2025-06-06 10:31] LABS: ALT/SGPT 12 U/L (<40); AST/SGOT 11 U/L (<32); Albumin 2.9 gm/dL (3.2-5.2); Albumin/Globulin Ratio 1.3 (1.0-2.3); Alkaline Phosphatase 42 U/L (39-117); Anion Gap 9.0 (8.0-16.0); Bilirubin,Direct < 0.2 mg/dL (0-0.3); Bilirubin,Total 0.3 mg/dL (0.1-1.0); Blood Urea Nitrogen 8 mg/dL (6-20); Calcium 8.6 mg/dL (8.6-10.4); Carbon Dioxide 24 mmol/L (22-30); Chloride 108 mmol/L (96-108); Globulin 2.3 gm/dL (2.2-3.7); Glucose 183 mg/dL (70-105); Phosphorous 2.6 mg/dL (2.5-4.5); Potassium 3.3 mmol/L (3.3-5.1); Sodium 141 mmol/L (133-145); Triglycerides 111 mg/dL (<150); Uric Acid 2.0 mg/dL (2.5-8.0)
[2025-06-06 10:42] LABS: Basophils # (Auto) 0.01 K/mcL (0.00-0.30); Basophils % (Auto) 0.2 % (0.0-2.0); Eosinophils # (Auto) 0.13 K/mcL (0.00-0.70); Eosinophils % (Auto) 2.2 % (0.0-7.0); Hematocrit 33.9 % (34.1-44.9); Hemoglobin 11.1 g/dL (11.2-15.7); Lymphocytes # (Auto) 1.25 K/mcL (1.50-4.80); Lymphocytes % (Auto) 21.3 % (15.5-49.0); Mean Corpuscular HGB Conc 32.7 g/dL (31.0-36.0); Monocytes # (Auto) 0.46 K/mcL (0.10-0.90); Monocytes % (Auto) 7.8 % (1.0-12.0); Neutrophils % (Auto) 67.0 % (38.0-78.0); Platelet Count 329 K/mcL (140-440); RBC 3.64 M/mcL (3.59-5.38); WBC 5.9 K/mcL (4.5-11.0)
[2025-06-06 15:25] VITALS: TEMP 98.6; O2SAT 95
[2025-06-09 07:09] LABS: Clonazepam Confirm, Urine 836 ng/mL (Cutoff=100)
== END 2025-06-06 18:20 | disposition home or self-care (01) | DRG 392 ==
LOC: ED 04:07 → MEDSUR 07:54
PROVIDERS: ADMIT Family Medicine Adult Medicine; ATTEND Family Medicine Adult Medicine